=== PATIENT | male | born 1950 | race Hispanic/Latino ===

== ENCOUNTER 2017-02-18 11:55 | Inpatient (IN) | payer BC, MEDICARE ==
[2017-02-18 12:19] VITALS: BMI 33.9
[2017-02-18] MEDS ORDERED: Albuterol-Ipratrop 3 mg / 0.5 (3 ml) UD IH STA (12:20)
--- NOTE | 2017-02-18 12:28 | ED PDOC ---
Arrival/HPI - General Chief Complaint: Shortness Of Breath Time Seen by Provider: 02/18/17 12:12 Historian: Patient, [employer] (daughter translates) - History of Present Illness Time/Duration: > month Symptom Onset: Gradual Severity Level: Moderate Activities at Onset: Rest Associated Symptoms (Text): 02/18/17 12:26 Daughter translates. Patient complains of a several month history of a cough congestion and shortness of breath. He has non-small cell lung cancer localized to the right upper lobe. Had a PET CT scan approximately 2 weeks ago. is requesting a CT scan of the chest with no contrast. He will be admitted to Dr. Sandra Live. Past Medical History - Cardiac Hx Pacemaker: No - Neurological Hx Paralysis: No - Hematological/Oncological Hx Blood Transfusions: No Hx Blood Transfusion Reaction: No - Musculoskeletal/Rheumatological Hx Musculoskeletal Disorders: No - Anesthesia Hx Anesthesia Reactions: No Family/Social History - Physician Review Nursing Documentation Reviewed: Yes Family/Social History: Unknown Family HX Smoking Status: Former Smoker Hx Alcohol Use: No Hx Substance Use: No Allergies/Home Meds Allergies/Adverse Reactions: Allergies No Known Allergies Allergy (Verified 02/23/13 09:36) Home Medications: Home Meds Medication Instructions Recorded Confirmed Alprazolam 0.25 mg PO DAILY 02/23/13 02/23/13 Amlodipine Besylate 10 mg PO DAILY 02/23/13 02/23/13 Enalapril Maleate/Hydrochlor 1 tab PO DAILY 02/23/13 02/23/13 [Enalapril/Hctz 10 mg-25 mg] Escitalopram Oxalate [Lexapro] 10 mg PO DAILY 02/23/13 02/23/13 Review of Systems - Physician Review All systems were reviewed & negative as marked: Yes - Review of Systems Constitutional: Fatigue. absent: Fevers Respiratory: SOB, Cough, Sputum, Wheezing Cardiovascular: absent: Chest Pain, Palpitations, Syncope Gastrointestinal: absent: Abdominal Pain, Diarrhea, Nausea, Vomiting Neurological: absent: Headache, Dizziness Physical Exam Vital Signs Temp Pulse Resp BP Pulse Ox 02/18/17 13:33 97 H 18 138/79 97 02/18/17 12:05 98.5 F 108 H 18 141/85 97 Temperature: Afebrile Blood Pressure: Normal Pulse: Tachycardic Respiratory Rate: Normal Appearance: Positive for: Well-Appearing, Non-Toxic, Comfortable Pain Distress: None Mental Status: Positive for: other (awake alert and cooperative) - Systems Exam Head: Present: Atraumatic, Normocephalic Pupils: Present: PERRL Extroacular Muscles: Present: EOMI Conjunctiva: Present: Normal Mouth: Present: Moist Mucous Membranes Pharnyx: No: ERYTHEMA, EXUDATE, TONSILS ENLARGED Neck: Present: Normal Range of Motion Respiratory/Chest: Present: Wheezes, Decreased Breath Sounds, Rhonchi. No: Respiratory Distress, Accessory Muscle Use, Rales, Retracting, Tachypneic, Tender to Palpation Cardiovascular: Present: Regular Rate and Rhythm, Normal S1, S2, Tachycardic. No: Murmurs Abdomen: Present: Normal Bowel Sounds. No: Tenderness, Distention, Peritoneal Signs, Rebound, Guarding Upper Extremity: Present: Normal Inspection. No: Cyanosis, Edema Lower Extremity: Present: Normal Inspection. No: Edema Neurological: Present: GCS=15, CN II-XII Intact, Speech Normal, Motor Func Grossly Intact Skin: Present: Warm, Dry, Normal Color. No: Rashes Psychiatric: Present: Alert, Oriented x 3, Normal Insight, Normal Concentration Medical Decision Making ED Course and Treatment: 02/18/17 13:48 Sent for admission for treatment of non-small cell lung cancer and begin chemotherapy. - Lab Interpretations Lab Results: 02/18/17 12:45 Lab Results 02/18/17 12:45: pO2 104 H, VBG pH 7.32, VBG pCO2 56.0, VBG HCO3 28.9 H, VBG Total CO2 30.6 H, VBG O2 Sat (Calc) 98.6 H, VBG Base Excess 1.6, VBG Potassium 4.2, Sodium 138.0, Chloride 109.0 H, Glucose 93, Lactate 0.7, FiO2 21.0, Venous Blood Potassium 4.2 02/18/17 12:45: WBC 8.7, RBC 3.99, Hgb 12.2 L, Hct 37.0 L, MCV 92.7, MCH 30.6, MCHC 33.0, RDW 13.9, Plt Count 273, MPV 9.0, Gran % 79.2 H, Lymph % (Auto) 11.5 L, [place] % (Auto) 6.2 H, Eos % (Auto) 2.9, Baso % (Auto) 0.2, Gran # 6.88 H, Lymph # 1.0 L, [place] # 0.5, Eos # 0.3, Baso # 0.02 - RAD Interpretation Radiology Orders: 02/18/17 12:19 CHEST PORTABLE [RAD] Stat 02/18/17 12:24 CHEST W/O CONTRAST [CT] Stat - Medication Orders Current Medication Orders: Discontinued Medications Albuterol/Ipratropium (Duoneb 3 Mg/0.5 Mg (3 Ml) Ud) 3 ml IH ONCE STA Stop: 02/18/17 12:21 Last Admin: 02/18/17 12:32 Dose: 3 ml Disposition/Present on Arrival - Present on Arrival Any Indicators Present on Arrival: No History of DVT/PE: No History of Uncontrolled Diabetes: No Urinary Catheter: No History of Decub. Ulcer: No - Disposition Have Diagnosis and Disposition been Completed?: Yes Diagnosis: Lung cancer, Dyspnea Disposition: HOSPITALIZED Disposition Time: 13:19 Patient Plan: Admission Patient Problems: Current Active Problems Problem Status Onset Dyspnea Acute Lung cancer Acute Condition: FAIR
--- NOTE | 2017-02-18 12:46 | RAD ---
HISTORY: sob COMPARISON: 05/12/2013 FINDINGS: LUNGS: There is opacification and volume loss of the right lung. This may be due to endobronchial obstruction such is a mucous plug. The previous study shows surgical clips this area. The findings may be due to recurrent tumor. PLEURA: There is a small right pleural effusion CARDIOVASCULAR: Normal. OSSEOUS STRUCTURES: No significant abnormalities. VISUALIZED UPPER ABDOMEN: Normal. OTHER FINDINGS: None. IMPRESSION: Opacification and volume loss of the right lung suspicious for endobronchial obstruction
[2017-02-18 12:53] LABS: ADD MANUAL DIFF? NO
[2017-02-18 12:55] LABS: VENOUS BLOOD GAS BASE EXCESS 1.6 mmol/L (0.0-2.0); VENOUS BLOOD PH 7.32 (7.32-7.43)
[2017-02-18 12:56] LABS: BASO # 0.02 K/mm3 (0.0-2.0); BASO % 0.2 % (0.0-3.0); EOS # 0.3 (0.0-0.7); EOS % 2.9 % (1.5-5.0); GRAN # 6.88 (1.4-6.5); GRAN % 79.2 % (50.0-68.0); LYMPH % 11.5 % (22.0-35.0); MEAN CELL VOLUME 92.7 fL (80.0-105.0); MEAN CORPUSCULAR HEMOGLOBIN 30.6 pg (25.0-35.0); MONO # 0.5 (0.1-0.6); MONO % 6.2 % (1.0-6.0); PLATELET COUNT 273 10^3/uL (120.0-450.0); RED CELL DISTRIBUTION WIDTH 13.9 % (11.5-14.5); WHITE BLOOD COUNT 8.7 10^3/ul (4.5-11.0)
[2017-02-18 13:49] LABS: INR 1.18 (0.93-1.08); PARTIAL THROMBOPLASTIN TIME 27.6 Seconds (23.7-30.8)
--- NOTE | 2017-02-18 13:49 | CT ---
PROCEDURE: CT Chest without contrast HISTORY: as per Dr Ram COMPARISON: None. TECHNIQUE: Contiguous axial images were obtained through the chest without intravenous contrast enhancement. Sagittal and coronal reconstructions were performed. Radiation dose (DLP): 670.23 mGy-cm. This CT exam was performed using one or more of the following dose reduction techniques: Automated exposure control, adjustment of the mA and/or kV according to patient size, and/or use of iterative reconstruction technique. FINDINGS: LUNGS: Status post partial right pneumonectomy. Multiple surgical clips inferior to the right hilum. Right-sided volume loss with shift of the heart mediastinum towards the right side. There is extensive consolidation likely in the superior segment of the right lower lobe, with associated air bronchograms. There is soft tissue density seen along the right medial pleural surface contiguous with this consolidation or mass. There is extension into the right upper lobe from this medial pleural soft tissue. There is narrowing of the right lower lobe bronchus without evidence of an endobronchial mass. This may be due to extrinsic compression by neoplasm. Evaluation is somewhat limited in the absence of intravenous contrast. MEDIASTINUM: Unremarkable thoracic aorta. No aneurysm. Mild cardiomegaly. Moderate pericardial effusion. Main pulmonary artery unremarkable. No vascular congestion. No mediastinal lymphadenopathy. Contiguous extension of soft tissue density in the right lung to the hilum. Left hilum is unremarkable. There is a right central venous infusion port. PLEURA: Small right pleural effusion. No left pleural effusion. No pneumothorax. BONES: Status post right thoracotomy. Healing fractures right 5th through 8th ribs posteriorly. Healing fracture right 6th rib anteriorly. No lytic or blastic osseous lesions identified. UPPER ABDOMEN: Grossly unremarkable. OTHER FINDINGS: None. IMPRESSION: Status post right thoracotomy. Soft tissue density/consolidation in the right lower lobe extending to the right upper lobe with soft tissue density along the right medial pleural surface. Air bronchograms within a large portion of this soft tissue density reflect possible pneumonia or atelectasis. No endobronchial mass. Narrowing of right lower lobe bronchus may reflect extrinsic compression by neoplasm. Small right pleural effusion. Moderate pericardial effusion. Multiple healing right rib fractures as above.
[2017-02-18 13:58] LABS: ALKALINE PHOSPHATASE 85 U/L (38-133); ALT/SGPT 29 U/L (7-56); AST/SGOT 29 U/L (15-59); BILIRUBIN,TOTAL 0.7 mg/dL (0.2-1.3); BLOOD UREA NITROGEN 18 mg/dL (7-21); CALCIUM 8.8 mg/dL (8.4-10.5); CARBON DIOXIDE 29 mmol/L (21-33); CHLORIDE 102 mmol/L (98-107); GFR AFRICAN-AMERICAN > 60; GLUCOSE,RANDOM 91 mg/dL (70-110); POTASSIUM 4.3 mmol/L (3.6-5.0); SODIUM 140 mmol/L (132-148)
[2017-02-18 14:10] LABS: TROPONIN I 0.02 ng/mL
[2017-02-18] MEDS ORDERED: MethylPREDNISolone 40 mg Vial IVP STA (15:30)
[2017-02-18 16:47] VITALS: RESP 20
[2017-02-18] MEDS ORDERED: Pneumococcal 23-Valent Vaccine IM ONE (16:54)
[2017-02-18] MEDS: MethylPREDNISolone 40 mg Vial IVP SCH ×2 (18:49→23:06)
[2017-02-18] MEDS ORDERED: Albuterol-Ipratrop 3 mg / 0.5 (3 ml) UD IH SCH (20:04)
[2017-02-18] MEDS ORDERED: Albuterol-Ipratrop 3 mg / 0.5 (3 ml) UD IH PRN (20:31)
[2017-02-18] MEDS ORDERED: levoFLOXacin 750 mg in D5W 150 ML BAG IVPB SCH (22:00)
--- NOTE | 2017-02-18 22:35 | CARD ---
APPROVED REPORT EKG Measurement Heart [id number] <Conclusion> Sinus tachycardia Otherwise normal ECG
[2017-02-19] MEDS: Albuterol-Ipratrop 3 mg / 0.5 (3 ml) UD IH SCH ×4 (02:07→19:25)
[2017-02-19 02:49] LABS: URINE BILIRUBIN NEGATIVE (NEGATIVE); URINE BLOOD TRACE-INTACT (NEGATIVE); URINE GLUCOSE (UA) NEGATIVE (NEGATIVE); URINE KETONE NEGATIVE (NEGATIVE); URINE LEUKOCYTE ESTERASE NEGATIVE Leu/uL (NEGATIVE); URINE PROTEIN NEGATIVE mg/dL (<30 mg/dL); URINE UROBILINOGEN 0.2 E.U./dL (<1 E.U./dL)
[2017-02-19 03:00] LABS: URINE APPEARANCE CLEAR (CLEAR); URINE COLOR STRAW (YELLOW)
[2017-02-19 03:09] LABS: URINE WBC 0 - 2 /hpf (0-6)
[2017-02-19] MEDS: MethylPREDNISolone 40 mg Vial IVP SCH ×4 (05:10→23:07)
[2017-02-19 06:34] LABS: ADD MANUAL DIFF? NO
[2017-02-19 06:57] LABS: GRAN # 12.44 (1.4-6.5); GRAN % 95.5 % (50.0-68.0); HEMATOCRIT 38.4 % (42.0-52.0); LYMPH # 0.5 (1.2-3.4); LYMPH % 3.8 % (22.0-35.0); MEAN CELL VOLUME 92.1 fL (80.0-105.0); MEAN CORPUSCULAR HEMOGLOBIN 30.7 pg (25.0-35.0); MEAN CORPUSCULAR HGB CONC 33.3 g/dl (31.0-37.0); MEAN PLATELET VOLUME 9.3 fl (7.0-11.0); MONO # 0.1 (0.1-0.6); MONO % 0.7 % (1.0-6.0); PLATELET COUNT 317 10^3/uL (120.0-450.0); RED CELL DISTRIBUTION WIDTH 13.7 % (11.5-14.5)
[2017-02-19 07:09] LABS: ALKALINE PHOSPHATASE 90 U/L (38-133); ALT/SGPT 33 U/L (7-56); AST/SGOT 33 U/L (15-59); BILIRUBIN,TOTAL 0.7 mg/dL (0.2-1.3); BLOOD UREA NITROGEN 19 mg/dL (7-21); CALCIUM 9.3 mg/dL (8.4-10.5); CARBON DIOXIDE 27 mmol/L (21-33); CHLORIDE 100 mmol/L (98-107); GFR AFRICAN-AMERICAN > 60; GLUCOSE,RANDOM 153 mg/dL (70-110); POTASSIUM 4.4 mmol/L (3.6-5.0); SODIUM 138 mmol/L (132-148); TOTAL PROTEIN 7.8 g/dL (5.8-8.3)
[2017-02-19] MEDS ORDERED: Budesonide 0.5 mg/2 ml Inhal Susp UD IH SCH (08:00)
--- NOTE | 2017-02-19 08:09 | HP ---
HISTORY OF PRESENT ILLNESS: This is a 66-year-old white male with a diagnosis of stage IV non-small- cell carcinoma of the lung on the right side with progressive right upper lobe atelectasis, right low er lobe atelectasis with postobstructive changes on the PET/CT scan without any evidence of disease p rogression either in the contralateral lung, liver, adrenal, or bone. He is admitted with progressiv e shortness of breath, spasmodic coughing to the extent that he almost feels like passing out, and he has fallen at home a few times after he has fits of cough and recently scant hemoptysis, which promp severo us to ask him to come to the Emergency Room for admission for further management. The patient re cently had a PET/CT scan done, which showed the following. The PET/CT shows increase in size and met abolic activity of the right perihilar soft tissue, consistent with progression of disease with assoc iated greater bronchial narrowing occlusion, increase in the consolidation atelectasis of the r ight lung with increase in size of the pericardial effusion which was now small to moderate size. Th ere is a healing right 7th rib fracture compared to the CT of 10/25/2016. Within the chest itself th ere is increase in the right perihilar soft tissue with new occlusion of the right upper lobe bronchu s, a significant narrowing of the bronchus intermedius, which has also progressed since the prior pablo dy. Measurement of the soft tissue is difficult due to its ill-defined nature and adjacent atelectas is. The perihilar soft tissue has greater metabolic activity compared to the prior study. For examp le, the most superior component adjacent to the right upper lobe as the maximum SUV of 12.9, previous ly was 8.7. Mid portion, on image, 91 with an SUV of 13.2, previous maximum SUV was 9.1. There is a n increase in the size of the infrahilar component which had an SUV of max of 16. , previous max was 8.1 with greater consolidation with air bronchograms in the right mid lung zone, which may be re lated to atelectasis and/or postradiation changes. New hypermetabolic subcarinal node with an SUV of .4 is also noted on the PET/CT. Also, the right lower paratracheal node with an SUV of 2.2, p reviously was 4.8. There is no evidence of mets to the adrenal glands or the liver on the PET/CT. REVIEW OF SYSTEMS: The patient has been having increasing coughing, sometimes to the point that he c oughs in fits up to 15 minutes until he feels that he is going to almost pass out. He has fallen shravan n once or twice after excruciating bout of coughing. The patient has hit his head as a result of dejah t. He has now stopped working and is retired at home, very depressed because of all the circumstance s with him. Denies any history of fevers or malaise. Complains of pain in the post-thoracotomy site on the right side posteriorly. Denies any history of nausea, vomiting, or diarrhea. No history of dysuria or hematuria. No gait disturbance or weakness of any extremities. No skin lesions or skin u lcerations. No history of arthritis, but complains of pain in the posterior rib region related to th e post-thoracotomy cutting. PAST MEDICAL HISTORY: Significant for carcinoma of the lung on the right side. Right lung has a par tial lobectomy, following which the patient was given systemic chemotherapy. Did well with the chemo therapy. Did well for almost 4 years. Had recurrence of his disease documented last year, for which he had radiation initially, following which he was started on Keytruda. The patient got 1 or 2 dose s of Keytruda and then stopped it. Did not come back to the office early part of this year whe n his daughter was very worried about him as he was getting increasingly coughing, and she had insist ed that he go for a CAT scan of the head and a PET/CT. CAT scan of the head, unfortunately, was not done, but the PET CT did not show any significant disease in the contralateral lung, adrenal, liver, or bone, and as the disease was only confined to the right upper lobe of the lung with progression of disease as evidenced on the PET/CT portion of it. We decided to recommend patient back on systemic treatments with either Opdivo or Keytruda, plus or minus a drug like Alimta adding carbo, Alimta to t he regimen. : Include: Ecotrin, vitamin D, atorvastatin, prednisone, oxycodone, and codeine. MEDICATIONS: Reviewed. He is on Xanax 0.25 mg daily. He is on amlodipine 10 mg daily. He is on en alapril/hydrochlorothiazide, mixture of 10 mg/25 one daily. He is on Lexapro 10 mg p.o. daily. He h as been taking codeine phosphate 30 mg q. coughing despite that he has been coughing quite a bi t in spasms. He has had occasional hemoptysis. PHYSICAL EXAMINATION: VITAL SIGNS: Stable. T-max is 98.4, pulse is 108, respirations 18, blood pressure is 141/85, pulse ox is 97% on room air. HEENT: Head is normocephalic, atraumatic. Conjunctivae pale. Sclerae are anicteric. The patient h as intermittent bouts of coughing that has been disturbing him a lot. Examination of the oropharynx reveals no oropharyngeal lesions. Pupils are equally reactive to light and accommodation. Examinati on of the mouth reveals no significant findings. Moist, pink mucous membranes are noted. NECK: Supple. There is no adenopathy. No jugular venous distention noted. CHEST: Lungs reveals wheezes and decreased breath sounds and rhonchi. The patient is in no respirat ory distress. The patient has had episodes of coughing, which turned to feel dizzy and sometime s almost making him feel like he was going to pass out. There are decreased breath sounds on the rig ht side posteriorly with egophony at the right lung base posteriorly. CARDIOVASCULAR: Reveals S1 and S2 to be normal. No gallop or murmur is heard. ABDOMEN: Soft, nontender. Bowel sounds are present. No rebound, rigidity, or guarding is noted. EXTREMITIES: Upper extremities reveal normal to inspection. No cyanosis or edema. Examination of l ower extremities reveals no cyanosis, clubbing, or edema. NEUROLOGIC: The patient is depressed. Otherwise, interactive with me through interpretation from hi s daughter, who is accompanying him. No focal deficits are noted. There is no speech impediment. SKIN: Turgor is normal. No skin lesions are noted. PSYCHIATRIC: The patient is awake, alert, and oriented to time, place and person. LABORATORY DATA: From today was reviewed. White count is 8.7, hemoglobin 12.2, hematocrit 37, platelet count 273,000. VBG reveals a base excess of 1.6. Sodium is 138, chloride 109, and glucose 98. Lactate 0.7. FIO2 21. Venous blood potassium is 4.2. White count is 8.7, hemoglobin of 12.1, hematocrit 37. The pat ient had a chest x-ray done followed by a CAT scan. CAT scan of the chest reveals status post right thoracotomy with soft tissue density and consolidation of the right lower lobe extending into the ri ght upper lobe with soft tissue density along the right medial pleural surface bronchograms ___ __ within the large portion of the soft tissue density reflect possibly pneumonia or atelectasis. No endobronchial mass lesion is seen. Narrowing of the right lower bronchus may be reflective intrinsi c compression by neoplasm, a small right pleural effusion, moderate pericardial effusion with multipl e healing right rib fractures noted on the CAT scan. ASSESSMENT NOTES AND PLAN: The patient has progressive stage IV [id number] carcinoma of the lung , adenocarcinoma. We will plan on having the patient evaluated by pulmonary, started on bronchodilat ors of DuoNeb every 6 hours [id number] and every 2 hours p.r.n. as needed. He has been started on IV steroids mg IV push 40 IV q. 6 hours. He has been also started empirically on ant ibiotics with Levaquin 750 mg once daily. Kidney functions are okay at least given one dose of the Levaquin. I will continue all of his other medications from home, including codeine phosp hate. The patient be seen by pulmonary to assess him for possible bronchoscopy. I spoke to Dr. Katja francois also about the possibility of an endobronchial stent. He has to look at the patient and look at the scans before he makes any decisions. Routine post exam instructions have been given to the patie nt. I am going to start the patient on B12, folic acid tonight in preparation for possible chemother apy tomorrow. Follow bedside echocardiogram as well, and we will plan on trying to get cardiology in put as well. The patient is admitted to the floor to undergo intensive investigation followed by paul [place]. . Odalis Hayward MD Elaine Ram MD cc: [id number] TT: 02/19/2017 01:38:19 tn
[2017-02-19] MEDS: Acetylcysteine 20% Inhal Soln (4ml) IH SCH ×3 (08:25→19:25)
[2017-02-19] MEDS ORDERED: Vancomycin 1gm in NS 250ml 1 GM/250 ML BAG IVPB STA (08:36)
--- NOTE | 2017-02-19 09:38 | CON ---
DATE: 02/19/2017 History is obtained via extensive discussion with Dr. Ram. I also discussed the case at length with Dr. Gann (my partner) - who follows the patient as an outpatient. The patient is a 66-year-old male with past medical history significant for chronic obstructive pulmonary disease, positive extensive smoking history - still smokes, advanced nonsmall cell lung cancer ( with recurrence), status post partial right lung resection, who presents to [facility] with a several month history of cough and congestion. The patient is not short of breath at rest. There is a history of some mild occasional dyspnea on exertion. There is no significant sputum production. There is no history of chest pain, coughing up of blood or chest pain - made worse with deep respirations. There is no history of temperatures, chills or infectious exposure. There is no history of night sweats, weight loss or appetite change prior to the above events. No history of leg or calf pains. No history of syncope or diaphoresis. No history of recent travel or trauma. REVIEW OF SYSTEMS: No history of nausea, vomiting or diarrhea. No acute urinary symptoms. No new neurological or musculoskeletal complaints. Rest of the review of systems is negative. ALLERGIES: No known allergies. SOCIAL HISTORY: Positive for extensive tobacco usage - still smokes, no alcohol. FAMILY HISTORY: No inheritable diseases. HOME MEDICATIONS: Include Cardizem, Norvasc, Lexapro, enalapril, codeine and Xanax. PHYSICAL EXAMINATION: GENERAL: The patient is not short of breath at rest. He is not using accessory muscles for breathing. VITAL SIGNS: Temperature is 98.2, pulse 100, respirations 18, blood pressure 145/93. Oxygen saturation on room air is 96%. HEENT: Normocephalic, atraumatic. NECK: No JVD. CARDIOVASCULAR: Positive S1, S2. No S3. LUNGS: Bronchial breath sounds-- right upper lobe. Scattered bilateral rhonchi and wheezing are also appreciated. EXTREMITIES: No clubbing, cyanosis, or edema. Calves are nontender to palpation. GASTROINTESTINAL: Abdomen is soft, nontender, nondistended. Bowel sounds are positive. SKIN: No acute rash. NEUROLOGIC: Limited at the present time. PERTINENT LABORATORY DATA: CAT scan of the chest was done and reviewed. The patient is status post partial right lung resection. There is a large soft tissue mass that extends from the right upper lobe down to probably the superior segment of the right lower lobe. There is also infiltrate versus atelectasis - with air bronchograms - in the superior segment of the right lower lobe. There is no definite endobronchial mass. Narrowing of the right lower lobe bronchus probably reflects extrinsic compression by the neoplasm. There is a small right pleural effusion. CBC: White count 8.7, hemoglobin 12.2 , hematocrit 37.0, platelets of 273. Complete metabolic profile is completely within normal limits. IMPRESSION: 1. Persistent bronchospasm. 2. Chronic obstructive pulmonary disease. 3. Advanced,recurrent lung cancer. 4. Mild anemia. PLAN: Again, I did discuss the case with Dr. Ram at length. I also discussed the case with Dr. Rashard Gann (my partner). Apparently, the patient has been coughing for approximately 1 year. However, as above, the cough has now become worse over the past several months. I did review the CAT scan of the chest - noted above. The patient is status post partial right ling resection. There is a large soft tissue mass in the right upper lobe which extends down approximately to the superior segment of the right lower lobe. There is also infiltrate versus atelectasis - with air bronchograms-- in the superior segment of the right lower lobe. There is no endobronchial mass noted. As above, there is narrowing of the right lower lobe bronchus which probably reflects extrinsic compression by the neoplasm. There is also a small right pleural effusion. On physical exam, the patient is in moderate bronchospasm. I will continue with the current nebulizer treatments and intravenous steroids for now. I will also add Mucomyst and chest percussion therapy - and will discuss these orders with the respiratory therapist. The patient has been started on antibiotic therapy. Procalcitonin has been ordered. Infectious disease evaluation has also been ordered. The patient does state to feeling better this morning - compared to the past few weeks. However, his overall status/prognosis does remain very guarded at best - given the recurrence of his lung cancer. I will discuss the above with Dr. Ram again this morning. I will also try to meet with the daughter this morning. Additional pulmonary intervention will be based on the clinical status of the patient. Thank you very much for this pulmonary consultation. Kenny Vaca MD cc: [id number] TT: 02/19/2017 09:37:21 Confirmation # [id number] Dictation # [id number] [id number]
[2017-02-19] MEDS: Cefepime 1gm in NS 100ml 1 GM/100 ML BAG IVPB SCH ×3 (09:53→21:51)
--- NOTE | 2017-02-19 19:08 | CON ---
DATE: 02/19/2017 The patient is in room 365, bed 2. REASON FOR CONSULTATION: Sinus tachycardia, pericardial effusion. HISTORY OF PRESENT ILLNESS: The patient is a 66-year-old male with past medical history significant for advanced nonsmall cell lung cancer with recurrence of the tumor, COPD, hypertension, admitted wit h a history that he has a cough and shortness of breath associated with the cough. This cough has be en there for a long time, but it got worse and the patient today came to the hospital and CAT scan sh owed moderate pericardial effusion, so cardiology consult has been requested to evaluate pericardial effusion. The patient denies any chest pain or palpitation. The patient, in the past, had a partial resection of the right upper lobe due to tumor and now it has shown recently the recurrence. The pa brian also had received radiation therapy and chemotherapy. The patient lying flat in bed without an y chest pain or shortness of breath or palpitation at present. PAST MEDICAL HISTORY: As mentioned, the patient positive for lung tumor resection and also part of t he lung for malignancy, chemotherapy and radiation therapy. The patient also had a hernia surgery. PERSONAL HISTORY: The patient used to smoke heavy and still smokes 2 cigarettes a day. Denies drink ing. MEDICATIONS: At home, the patient was on enalapril, Lexapro, codeine, Xanax, Norvasc, Cardizem. REVIEW OF SYSTEMS: All the systems were reviewed, positive mentioned in the history, others were neg ative. PHYSICAL EXAMINATION: VITAL SIGNS: Blood pressure 156/98, respirations 20, pulse 120, temperature 98.3. HEENT: Head is normocephalic. Eyes: Pupils normal. Conjunctivae slightly pale. NECK: JVP low. Carotid equal. THORAX: AP diameter normal. LUNGS: The patient has wheezing sounds. CARDIOVASCULAR: S1, S2. The patient has tachycardia. ABDOMEN: Soft, nontender, no organomegaly. EXTREMITIES: No clubbing, no cyanosis. LABORATORY DATA: WBC 13.0, hemoglobin 12.8, hematocrit 38.4, platelets 317. Sodium 138, potassium 4 .4, BUN 19, creatinine 0.8, random glucose . Calcium 9.3. AST, ALT normal. Total protein and albumin normal. Chest x-ray: Opacification and volume loss of the right lung suspicious for endobro nchial obstruction. EKG showed sinus tachycardia, [address] chest showed status post right thoracotomy, soft tissue density and consolidation right lower lobe extending to the right upper lob e, narrowing of the right lower lobe bronchus, may show extrinsic effect of compression by a neoplasm , small right pleural effusion, moderate pericardial effusion. 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 PLAN: We will order an echocardiogram to evaluate the pericardial effusion. We will also add atenol ol 25 mg daily for blood pressure, as well as sinus tachycardia, and also will restart amlodipine 10 mg daily, which the patient was getting before. The patient had been already started on methylpredni sone 40 mg q. 6 hourly IV, nebulizer therapy. For pericardial effusion, also the patient will be on IV steroid, that will also have the anti-inflammatory effect on the pericardium with steroids. We wi ll reevaluate the patient after echocardiogram. The patient is also being followed by pulmonary, Dr. Vaca. I discussed the patient's condition with his daughter. We will continue to follow with neel panda. Chante Piper MD cc: [phone] TT: 02/19/2017 19:07:31 Confirmation # [id number] Dictation # [id number] viji
--- NOTE | 2017-02-19 19:40 | CARD ---
APPROVED REPORT EXAM: Two-dimensional and M-mode echocardiogram with Doppler and color Doppler. INDICATION PERICARDIAL EFFUSION 2D DIMENSIONS Left Atrium (2D)3.5 (1.6-4.0cm) M-Mode DIMENSIONS Aortic Root3.30 (2.2-3.7cm)Aortic Cusp Exc.1.70 (1.5-2.0cm) Aortic Valve AoV Peak Vprocutf255.0cm/sAoV VTI30.3cmAO Peak GR.12mmHg LVOT Peak Inhukwas749.0cm/sLVOT VTI23.00cmAO Mean GR.8mmHg Mitral Valve E/A ratio0.0 TDI E/Lateral E'0.0E/Medial E'0.0 Pulmonary Valve PV Peak Lxydlvak68.9cm/sPV Peak Grad.3mmHg Tricuspid Valve TR Peak Lyeuifac612ot/sRAP [id number] Peak Gr.19mmHg AKUT66erHw LEFT VENTRICLE The left ventricle is normal size. There is borderline to mild concentric left ventricular hypertrophy. The left ventricular function is normal.EF-55% There is normal LV segmental wall motion. Transmitral Doppler flow pattern is Grade III-reversible restrictive diastolic dysfunction. No left ventricle thrombus noted on this study. There is no ventricular septal defect visualized. There is no left ventricular aneurysm. There is no mass noted in the left ventricle. RIGHT VENTRICLE The right ventricle is normal size. There is normal right ventricular wall thickness. The right ventricular systolic function is normal. ATRIA The left atrium size is normal. The right atrium size is normal. The interatrial septum is intact with no evidence for an atrial septal defect. AORTIC VALVE The aortic valve is thickened but opens well. No aortic regurgitation is present. There is no aortic valvular stenosis. There is no aortic valvular vegetation. MITRAL VALVE The mitral valve is thickened but opens well. Mitral regurgitation is trace to mild. There is no mitral valve stenosis. There is no evidence of mitral valve prolapse. TRICUSPID VALVE The tricuspid valve leaflets are thickened , but open well. There is trace tricuspid regurgitation.RVSp-29 mmof Hg. There is no tricuspid valve stenosis. There is no tricuspid valve prolapse or vegetation. PULMONIC VALVE The pulmonic valve is not well visualized. GREAT VESSELS The aortic root is normal in size. The ascending aorta is normal in size. The pulmonary artery is normal. The IVC is normal in size and collapses >50% with inspiration. PERICARDIAL EFFUSION There is no pleural effusion. There is a small circumferential pericardial effusion,but no sign of tamponade. <Conclusion> Normal chamber size,EF-55%. Trace to MildMR. TraceTR-29 mmofHg There is a small circumferential pericardial effusion,but no sign of tamponade.
--- NOTE | 2017-02-19 22:37 | CP.PCM.CON ---
History of Present Illness - History of Present Illness History of Present Illness: 66 year old female with PMH of non-small cell lung cancer S/P right pneumonectomy, HTN, obesity with BMI 34 was brought in because of cough as well as shortness of breath for the past few days. He denies fever or chills, no nausea or vomiting, no chest pain, no abdominal pain, no diarrhea, no dysuria, no headache or dizziness, no dysphagia, no sore throat, no rhinorrhea. In the ED , CT chest was done which shows consolidation and air bronchograms in the right lower lobe. Infectious Diseases consult is requested to further evaluate and manage. Review of Systems - Review of Systems All systems: reviewed and no additional remarkable complaints except (as per HPI ) Past Patient History - Past Social History Smoking Status: Former Smoker - CARDIAC Hx Hypertension: Yes Hx Pacemaker: No - PULMONARY Hx Respiratory Disorders: Yes (lung ca dx 2011) - NEUROLOGICAL Hx Paralysis: No - HEENT Hx HEENT Problems: Yes (eyeglasses) - RENAL Hx Chronic Kidney Disease: No - ENDOCRINE/METABOLIC Hx Endocrine Disorders: No - HEMATOLOGICAL/ONCOLOGICAL Hx Cancer: Yes (right sided lung) Hx Chemotherapy: Yes (2012) Other/Comment: non small lung ca r upper lobe - INTEGUMENTARY Hx Dermatological Problems: No - MUSCULOSKELETAL/RHEUMATOLOGICAL Hx Falls: No - GASTROINTESTINAL Hx Gastrointestinal Disorders: No - GENITOURINARY/GYNECOLOGICAL Hx Genitourinary Disorders: No - PSYCHIATRIC Hx Substance Use: No - SURGICAL HISTORY Hx Surgeries: Yes Other/Comment: 08/2012 tumor removal from lung. 2000 hernia - ANESTHESIA Hx Anesthesia Reactions: No Meds Allergies/Adverse Reactions: Allergies Allergy/AdvReac Type Severity Reaction Status Date / Time No Known Allergies Allergy Verified 02/23/13 09:36 - Medications Medications: Current Medications Albuterol/Ipratropium (Duoneb 3 Mg/0.5 Mg (3 Ml) Ud) 3 ml IH [id number] [facility] Albuterol/Ipratropium (Duoneb 3 Mg/0.5 Mg (3 Ml) Ud) 3 ml IH Q2H PRN PRN Reason: Shortness of Breath Codeine Sulfate (Codeine) 30 mg PO Q4 PRN PRN Reason: Cough Last Admin: 02/18/17 20:11 Dose: 30 mg Folic Acid (Folic Acid) 1 mg PO BID [facility] Levofloxacin/Dextrose (Levaquin 750mg) 750 mg IVPB 2200 [facility] Last Admin: 02/18/17 21:18 Dose: 750 mg Methylprednisolone (Solu-Medrol) 40 mg IVP Q6 [facility] Last Admin: 02/18/17 23:06 Dose: 40 mg Pantoprazole Sodium (Protonix Inj) 40 mg IVP DAILY [facility] Physical Exam - Constitutional Appears: Non-toxic, No Acute Distress - Head Exam Head Exam: NORMAL INSPECTION - Neck Exam Neck exam: Negative for: Lymphadenopathy, Meningismus - Respiratory Exam Respiratory Exam: Decreased Breath Sounds Additional comments: right anterior chest wall port site clean and non-tender - Cardiovascular Exam Cardiovascular Exam: +S1, +S2 Results - Vital Signs Recent Vital Signs: Last Vital Signs Temp 98.2 F 02/18/17 16:45 Pulse 100 H 02/18/17 20:19 Resp 20 02/18/17 16:45 BP 145/93 H 02/18/17 16:45 Pulse Ox 98 02/18/17 16:00 - Labs Result Diagrams: 02/19/17 05:30 02/19/17 05:30 Labs: Laboratory Results - last 24 hr 02/18/17 02/18/17 13:30 13:40 PT 12.7 H INR 1.18 H APTT 27.6 Sodium 140 Potassium 4.3 Chloride 102 Carbon Dioxide 29 Anion Gap 13 BUN 18 Creatinine 0.9 Est GFR ( Amer) > 60 Est GFR (Non-Af Amer) > 60 Random Glucose 91 Calcium 8.8 Total Bilirubin 0.7 AST 29 ALT 29 Alkaline Phosphatase 85 Lactate Dehydrogenase 359 Total Creatine Kinase 61 Troponin I 0.02 NT-Pro-B Natriuret Pep 429 Total Protein 7.0 Albumin 3.5 Globulin 3.6 Albumin/Globulin Ratio 1.0 L Assessment & Plan - Assessment and Plan (Free Text) Plan: Assessment Sepsis probably secondary to right sided healthcare-associated pneumonia non-small cell lung cancer S/P right pneumonectomy HTN obesity with BMI 34 Plan Started patient on Doxycycline and Cefepime pending blood and sputum cx, PCT Will monitor clinical response
--- NOTE | 2017-02-19 22:44 | PN ---
DATE: 02/19/2017 This is the patient's hospital visit on the medical floor. For Dr. Ram. SUBJECTIVE: The patient is a 66-year-old male, speaking [place] with broken Upper Sorbian with his daugh ter at the bedside, admitted via the Emergency Room for increasing shortness of breath with several m onths of worsening symptoms. He is known to have nonsmall cell CA of the lung with the patient now b eing treated with IV antibiotics for eventual chemotherapy as per Dr. Ram's recommendations. He is now resting comfortably in no acute distress, reporting that his breathing is better. PHYSICAL EXAMINATION: VITAL SIGNS: Temperature 98.6, pulse 105, respirations 20, blood pressure 127/81, pulse ox 96%. HEENT: Unremarkable. NECK: Supple. HEART: Tachy rate, regular rhythm. LUNGS: Scattered rhonchi. ABDOMEN: Obese, soft, and nontender. EXTREMITIES: No edema. SKIN: Warm, dry and clear. NEUROLOGIC: Awake and alert. LABORATORY DATA: The patient's labs were done, white blood cell count , hemoglobin of 12.8, hem atocrit 38.4, platelet count 317,000. A chem metabolic panel showing a nonfasting glucose 153. Proc alcitonin 0.05. Otherwise, normal chem panel. The patient's CT scan of the chest was done yesterday. It was read as status post right thoracotomy, soft tissue density consolidation in the right lower lobe extending to the right upper lobe with sof t tissue density along the right medial pleural space, air bronchograms reflect possible pneumonia or atelectasis, no endobronchial masses, narrowing of the right lower lobe bronchus may reflect extrins ic compression by neoplasm, small right pleural effusion, moderate pericardial effusion, multiple hea led right rib fractures. An echocardiogram was done earlier today. The echocardiogram was read as ejection fraction of 55%, m ild MR, no sign of tamponade with a small circumferential pericardial effusion. ASSESSMENT: Stage IV nonsmall cell cancer of the lung, adenocarcinoma with hypertension, depression, pleural effusion, pneumonia, chronic obstructive pulmonary disease. PLAN: After conversation with Dr. Ram, we will continue present medical regimen with treatment w ith Keytruda and Alimta for chemotherapy as indicated with antibiotics to continue as per consultants ' recommendations. We will monitor clinically and with labs. This was all explained to the patient in [place] by his daughter. Prognosis for this patient is guarded. Tod Umaña MD cc: [phone] TT: 02/19/2017 22:43:44 Confirmation # [id number] Dictation # [id number] mn
--- NOTE | 2017-02-19 23:38 | CP.PCM.PN ---
Subjective - Date & Time of Evaluation Date of Evaluation: 02/19/17 Time of Evaluation: 23:38 - Subjective Subjective: Patient was seen at bedside for complaint of head ache. He speaks [place]ankan.Nurse Kim spoke to him through an web application tester earlier. He states that head ache is frontal,strong. Denies nausea, vomiting, dizziness, paraesthesia. Has no other complaints. Medical record was reviewed. 66 year old Alona Hargrove with history of stage iV non small cell ca of lung. Objective - Vital Signs/Intake and Output Vital Signs (last 24 hours): Temp Pulse Resp BP Pulse Ox 98.6 F 130 H 20 127/81 96 02/19/17 16:00 02/19/17 16:00 02/19/17 16:00 02/19/17 16:00 02/19/17 16:00 Intake and Output: 02/19/17 02/20/17 18:59 06:59 Intake Total 840 Balance 840 - Medications Medications: Current Medications Acetylcysteine (Acetylcysteine 20%) 4 ml IH [id number] [facility] Last Admin: 02/19/17 19:25 Dose: 4 ml Albuterol/Ipratropium (Duoneb 3 Mg/0.5 Mg (3 Ml) Ud) 3 ml IH [id number] [facility] Last Admin: 02/19/17 19:25 Dose: 3 ml Albuterol/Ipratropium (Duoneb 3 Mg/0.5 Mg (3 Ml) Ud) 3 ml IH Q2H PRN PRN Reason: Shortness of Breath Alprazolam (Xanax) 0.25 mg PO BID [facility] PRN Reason: Protocol Stop: 02/26/17 10:16 Last Admin: 02/19/17 17:59 Dose: 0.25 mg Amlodipine Besylate (Norvasc) 10 mg PO DAILY [facility] Last Admin: 02/19/17 13:38 Dose: 10 mg Atenolol (Tenormin) 25 mg PO DAILY [facility] Budesonide (Pulmicort Respules) 0.5 mg IH [id number] [facility] Last Admin: 02/19/17 19:25 Dose: 0.5 mg Codeine Sulfate (Codeine) 30 mg PO Q4 PRN PRN Reason: Cough Last Admin: 02/19/17 17:59 Dose: 30 mg Folic Acid (Folic Acid) 1 mg PO BID [facility] Last Admin: 02/19/17 17:59 Dose: 1 mg Gabapentin (Neurontin) 600 mg PO DAILY [facility] PRN Reason: Protocol Doxycycline Hyclate 100 mg/ (Sodium Chloride) 100 mls @ 100 mls/hr IVPB Q12 [facility] PRN Reason: Protocol Last Admin: 02/19/17 23:08 Dose: 100 mls/hr Cefepime HCl (Maxipime 1gm) 1 gm in 100 mls @ 100 mls/hr IVPB Q8 [facility] PRN Reason: Protocol Last Admin: 02/19/17 21:51 Dose: 100 mls/hr Methylprednisolone (Solu-Medrol) 40 mg IVP Q6 [facility] Last Admin: 02/19/17 23:07 Dose: 40 mg Pantoprazole Sodium (Protonix Inj) 40 mg IVP DAILY [facility] Last Admin: 02/19/17 09:48 Dose: 40 mg Sertraline HCl (Zoloft) 25 mg PO DAILY [facility] - Labs Labs: 02/19/17 05:30 02/19/17 05:30 PT 12.7 Seconds (9.9-11.8) H 02/18/17 13:30 INR 1.18 (0.93-1.08) H 02/18/17 13:30 APTT 27.6 Seconds (23.7-30.8) 02/18/17 13:30 - Constitutional Appears: Well, No Acute Distress - Head Exam Head Exam: ATRAUMATIC, NORMAL INSPECTION, NORMOCEPHALIC Additional comments: Obese person. - Eye Exam Eye Exam: Normal appearance - ENT Exam ENT Exam: Normal External Ear Exam - Neck Exam Neck Exam: Normal Inspection - Respiratory Exam Respiratory Exam: NORMAL BREATHING PATTERN - Cardiovascular Exam Cardiovascular Exam: absent: JVD - GI/Abdominal Exam GI & Abdominal Exam: absent: Distended - Rectal Exam Rectal Exam: Deferred - Extremities Exam Extremities Exam: Normal Inspection - Back Exam Back Exam: NORMAL INSPECTION - Neurological Exam Neurological Exam: Alert - Psychiatric Exam Psychiatric exam: Normal Affect, Normal Mood - Skin Skin Exam: Normal Color Assessment and Plan - Assessment and Plan (Free Text) Assessment: A/P:Frontal headache. Stage IV non small cell lung cancer. Obesity. Leukocytosis. Borderline anemia. Tylenol 650 mg PO x 1.
[2017-02-20] MEDS ORDERED: MethylPREDNISolone 40 mg Vial IVP SCH (10:30)
[2017-02-20] MEDS ORDERED: Ondansetron 16 MG, Dexamethasone 20 MG, DiphenhydrAMINE 25 MG, Famotidine 20 MG in Sodi... IVPB ONE (11:40)
--- NOTE | 2017-02-20 15:19 | PN ---
DATE: 02/20/2017 LOCATION: 365, bed 2. The patient was seen earlier this morning. SUBJECTIVE: The patient is comfortable in bed, not in distress, afebrile. Much improved cough and b reathing. No nausea currently. OBJECTIVE: VITAL SIGNS: The patient is afebrile, blood pressure 100/60, respiratory rate 22, heart rate of 90. HEAD AND NECK: Normocephalic, atraumatic. HEART: S1 and S2 are normal. CHEST: Decreased breath sounds bilaterally with some crackles at the bases, but has improved compare d to yesterday. There is a right anterior chest wall Port-A-Cath. The site is clean, nontender. ABDOMEN: Soft, nontender, nondistended. LABORATORY DATA: Unfortunately, we are unable to review the labs because the computer systems are do wn. ASSESSMENT: We have a 66-year-old male with stage IV nonsmall cell lung cancer, status post right pn eumonectomy in 2011, coming in with probable right lower lobe healthcare-associated pneumonia/postobs tructive pneumonitis. PLAN: We are continuing the patient on his antibiotics, and we will continue to trend WBC count. Co ntinue to monitor his clinical response and we will discuss this with Dr. Ram and see if the merritt ent will be undergoing more chemotherapy. Brooks Hebert M.D. cc: [id number] TT: 02/20/2017 15:17:55 Confirmation # [id number] Dictation # [id number] viji
--- NOTE | 2017-02-20 16:57 | PN ---
DATE: 02/20/2017 REASON FOR CONSULTATION AND FOLLOWUP: Pericardial effusion on CAT scan, a large pericardial effusion on CAT scan, lung CA, lung CA. BRIEF CLINICAL HISTORY: This is a 66-year-old male ____ history of recent lung CA, admitted with keara rtness of breath, on chemo. Seen in the chemo unit. CAT scan shows large pericardial effusion. Ech o done shows small pericardial effusion, mitral regurgitation, tricuspid regurgitation, preserved LV function. The patient denies any chest pain, but complained of shortness of breath, unchanged. PHYSICAL EXAMINATION: As follows: VITAL SIGNS: Temperature afebrile, heart rate 80, blood pressure 130/80. HEENT: PERRLA. Extraocular muscles intact. NECK: Supple. No carotid bruits. No thyromegaly. CHEST: Clear to auscultation. HEART: S1, S2 regular. ABDOMEN: Soft. EXTREMITIES: Clubbing and cyanosis negative, 1+ pedal edema. BLOOD WORKUP: Pending as computer system is down. IMPRESSION: Lung cancer, pericardial effusion, ex-tobacco abuse, hypertension, hyperlipidemia. Echo shows mild pericardial effusion, ____ tricuspid regurgitation. RECOMMENDATION: Continue chemo. Echo shows ____, but no sign of tamponade. We will follow with you . Thank you, Dr. Umaña/Dr. Ram for providing us the opportunity in taking care of the patient . Discussed with Dr. Ram about the echo findings. Chante Bullard MD cc: [phone] TT: 02/20/2017 16:57:30 Confirmation # [id number] Dictation # [id number]
[2017-02-20] MEDS: Albuterol-Ipratrop 3 mg / 0.5 (3 ml) UD IH SCH (20:13)
[2017-02-20] MEDS: Acetylcysteine 20% Inhal Soln (4ml) IH SCH (20:13)
[2017-02-20] MEDS: Cefepime 1gm in NS 100ml 1 GM/100 ML BAG IVPB SCH (20:58)
[2017-02-20 21:45] VITALS: BP 105/56; PULSE 95; TEMP 97.5; O2SAT 97
--- NOTE | 2017-02-21 08:17 | DS ---
Discharge summary for Dr. Ram. SUBJECTIVE: The patient is a 66-year-old male seen sitting up in bed with his daughter at the [facility], anxious for discharge home after completing treatment as per Dr. Ram's with treatment for his pneumonia continuing. As per Dr. Hebert's recommendation, we will continue antibiotics as an outpatien t as the patient will be discharged home today for personal family matters to be attended at home. [place] is very anxious for discharge. With this patient will have strict followup as per his daughter. He will take medicines as recommended that would be listed. These medicines were called into [facility] [phone]. He is in no acute distress. It should be noted the computers were down today with the patient's treatments and his information be ing done on hard copy paper. OBJECTIVE: PHYSICAL EXAMINATION: VITAL SIGNS: Vital signs are from yesterday with the review of today's vital signs within normal rang e. His labs are also listed from yesterday with review of today's labs acceptable for discharge as per Dr. Ram. His procalcitonin 0.05 done 2 days prior. HEENT: Unremarkable. NECK: Supple. HEART: Regular rate. LUNGS: Clear. ABDOMEN: Soft, nontender, obese. EXTREMITIES: +1 edema. NEUROLOGIC: Awake and alert. ASSESSMENT: Stage IV nonsmall cell cancer of the lung, adenocarcinoma, hypertension, depression, ple ural effusion, pneumonia, chronic obstructive pulmonary disease. After conversation with Dr. Ram, we will discharge the patient home today on his present medical regimen, which was reviewed with the patient and his daughter with the patient's medications for disc harge to include gabapentin 600 mg once a day, Risperdal 25 mg once a day, sertraline 25 mg once a da y, diltiazem 120 mg once a day. Also, the patient will be getting doxycycline 100 mg once a day for 7 days, prednisone 20 mg twice a day for 1 week, then 20 mg once a day for 1 week with tapering down. He will follow up in the office for a tapering regimen. Also, we will give DuoNeb and metered dose inhaler q. 6 hours shortness of breath, wheezing with consideration for his insurance. Should it not be covered then we will recommend with albuterol same regimen. We will also recommend for the patien t to continue his amlodipine 10 mg once a day with codeine as needed for severe cough. His diet is r egular as tolerated. His followup will be in the office in 1 week's time or earlier. Tod Umaña MD cc: [phone] TT: 02/21/2017 02:53:46 jn
[2017-02-21] MEDS ORDERED: diltiaZEM 240 mg/24 Hours CD Cap PO SCH (10:00)
[2017-02-21 12:58] LABS: BLOOD UREA NITROGEN 26 mg/dL (7-21); CALCIUM 9.2 mg/dL (8.4-10.5); CARBON DIOXIDE 25 mmol/L (21-33); CHLORIDE 102 mmol/L (98-107); GFR AFRICAN-AMERICAN > 60; GLUCOSE,RANDOM 278 mg/dL (70-110); SODIUM 138 mmol/L (132-148)
[2017-02-21 18:32] LABS: HEMATOCRIT 35.9 % (42.0-52.0); MEAN CELL VOLUME 93.5 fL (80.0-105.0); MEAN CORPUSCULAR HEMOGLOBIN 30.7 pg (25.0-35.0); MEAN CORPUSCULAR HGB CONC 32.9 g/dl (31.0-37.0); MEAN PLATELET VOLUME 9.3 fl (7.0-11.0); RED CELL DISTRIBUTION WIDTH 14.1 % (11.5-14.5); WHITE BLOOD COUNT 21.2 10^3/ul (4.5-11.0)
--- NOTE | 2017-02-23 20:32 | PQF SEPSIS ---
02/23/17 Dr. Ram, ID tax consultant documents sepsis secondary to pneumonia on his consult. This is the only place in which sepsis is documented. Was sepsis ruled in, ruled out, undetermined, other? If sepsis was ruled in, was this present on admission? Thank you. Clarification of your documentation is requested to better reflect the severity of illness and intensity of treatment of your patient. Indicators present [] Temp < 96.8 or > 100.4 [] WBC count > 12,000/mm3 or <000/mm3 or 10% immature neutrophils [] Heart Rate > 90 [] Respiratory Rate > 20 [] Fever or hypothermia [] Chills [] Positive blood cultures [] Hypotension [] Metabolic acidosis (Elevated lactate level, anion gap or reduced blood pH) [] Acute confusion /Altered Mental Status [] Shock [] Other: [] Location in the medical record that reflects the above clinical findings: [] Treatment Provided: [] PHYSICIAN'S RESPONSE Based on your medical judgment of the clinical indicators outlined above, are you treating this patient for a known or suspected: [] Sepsis / Septicemia Please specify organism if known [] [] SIRS (Systemic Inflammatory Response Syndrome) [] Severe Sepsis (Sepsis with Associated Organ Dysfunction) [] Fever of Unknown Origin [] Other, please indicate: [] [] If Unable to Determine, please check the box, sign and date. Present On Admission (POA) Indicator: [] Present at the time of admission [] Not present at the time of admission [] Clinically Undetermined In responding to this query, please exercise your independent professional judgment. The fact that a question is asked does not imply that any particular answer is desired or expected. Thank you for your clarification on this documentation. If you have any questions please call:[ ] * Thank you, [ ] director mba [facility]
== END 2017-02-20 22:50 | disposition home or self-care (01) | DRG 194 ==
LOC: ED 11:55 → ERH 13:17 → 3RNO 15:35
PROVIDERS: ADMIT Family Medicine; ATTEND Family Medicine
DX: J18.9 Pneumonia, unspecified organism (principal); J90 Pleural effusion, not elsewhere classified; I31.3 Pericardial effusion (noninflammatory); R65.10 Systemic inflammatory response syndrome (SIRS) of non-infectious origin without acute organ dysfunction; J44.0 Chronic obstructive pulmonary disease with (acute) lower respiratory infection; C34.91 Malignant neoplasm of unspecified part of right bronchus or lung; I08.1 Rheumatic disorders of both mitral and tricuspid valves; J98.11 Atelectasis; I10 Essential (primary) hypertension; D64.9 Anemia, unspecified; Y95 Nosocomial condition; Z90.2 Acquired absence of lung [part of]; Z92.21 Personal history of antineoplastic chemotherapy; Z92.3 Personal history of irradiation; E66.9 Obesity, unspecified; Z68.34 Body mass index [BMI] 34.0-34.9, adult; F32.89 Other specified depressive episodes; E78.5 Hyperlipidemia, unspecified; F17.210 Nicotine dependence, cigarettes, uncomplicated; J98.01 Acute bronchospasm; S22.31XD Fracture of one rib, right side, subsequent encounter for fracture with routine healing; Z79.899 Other long term (current) drug therapy; R40.2412 Glasgow coma scale score 13-15, at arrival to emergency department; R51 Headache

== ENCOUNTER 2017-07-11 09:51 | Inpatient (IN) | payer BC, MEDICARE ==
--- NOTE | 2017-07-11 10:11 | ED PDOC ---
Arrival/HPI - General Chief Complaint: Shortness Of Breath Time Seen by Provider: 07/11/17 10:10 Historian: Family - History of Present Illness Narrative History of Present Illness (Text): 07/11/17 10:11 A 67 year old male, whose past medical history includes stage 4 lung cancer on chemotherapy, sent into the emergency department by oncologist for worsening shortness of breath. History obtained through family who translated for patient. Daughter reports worsening shortness of breath, dyspnea on exertion and productive cough over the past weeks. Daughter denies fever, chills, nausea , vomiting, abdominal pain, chest pain or any other complaints. Oncologist: Dr. Ram Time/Duration: 1 week Symptom Course: Worsening Quality: Other Context: Home Past Medical History - Provider Review Nursing Documentation Reviewed: Yes - Infectious Disease Hx of Infectious Diseases: None - Cardiac Hx Hypertension: Yes Hx Pacemaker: No - Pulmonary Hx Respiratory Disorders: Yes (lung ca dx 2011) Other/Comment: Stage 4 lung CA - Neurological Hx Paralysis: No - HEENT Hx HEENT Disorder: Yes (eyeglasses) - Renal Hx Renal Disorder: No - Endocrine/Metabolic Hx Endocrine Disorders: No - Hematological/Oncological Hx Cancer: Yes (right sided lung) Hx Chemotherapy: Yes (2012) Other/Comment: non small lung ca r upper lobe. 1/3 lung removal - Integumentary Hx Dermatological Disorder: No - Musculoskeletal/Rheumatological Hx Falls: No - Gastrointestinal Hx Gastrointestinal Disorders: No - Genitourinary/Gynecological Hx Genitourinary Disorders: No - Psychiatric Hx Anxiety: Yes Hx Depression: Yes Hx Substance Use: No - Surgical History Other/Comment: 08/2012 tumor removal from lung 3 removed. 2000 hernia - Anesthesia Hx Anesthesia Reactions: No Family/Social History - Physician Review Nursing Documentation Reviewed: Yes Family/Social History: No Known Family HX Smoking Status: Former Smoker Hx Alcohol Use: No Hx Substance Use: No Allergies/Home Meds Allergies/Adverse Reactions: Allergies No Known Allergies Allergy (Verified 07/11/17 10:01) Home Medications: Home Meds Medication Instructions Recorded Confirmed Codeine [Codeine Sulfate] 30 mg PO QID PRN 02/18/17 07/11/17 [id number] CD [Cardizem CD] 240 mg PO DAILY 02/18/17 07/11/17 Benzonatate [Tessalon Perles] 100 mg PO TID 07/11/17 07/11/17 Folic Acid [Folic Acid] 1 mg PO BID 07/11/17 07/11/17 Furosemide [Lasix] 20 mg PO DAILY 07/11/17 07/11/17 Gabapentin [Neurontin] 300 mg PO TID 07/11/17 07/11/17 Omeprazole 20 mg PO BID 07/11/17 07/11/17 Physical Exam - Physical Exam Narrative Physical Exam (Text): - Review of Systems Constitutional: Normal. absent: Fatigue, Weight Change, Fevers Eyes: Normal ENT: denies sore throat, denies tristhmus Respiratory: (+) SOB, VOGT, Cough, Sputum Cardiovascular: absent: Chest Pain, Palpitations, Syncope Gastrointestinal: Normal. absent: Abdominal Pain, Diarrhea, Nausea, Vomiting Genitourinary: Normal. absent: Dysuria, Frequency, Hematuria Musculoskeletal: Normal. absent: Arthralgias, Back Pain, Neck Pain Skin: no rashes, no erythema Neurological: absent: Focal Weakness Endocrine: Normal Hemo/Lymphatic: Normal Psychiatric: No suicidal or homicidal ideations Physical exam Patient appears age appropriate in no distress, speaking full sentences without difficulty - Systems Exam Head: Present: Atraumatic, Normocephalic Pupils: Present: PERRL Extroacular Muscles: Present: EOMI Conjunctiva: Present: Normal Mouth: Present: Moist Mucous Membranes Neck: Present: Normal Range of Motion. No: MIDLINE TENDERNESS, Paraspinal Tenderness Respiratory/Chest: Present: Mild respiratory distress, Bilateral expiratory wheezing No: Accessory Muscle Use, Tachypneic Cardiovascular: Present: Regular Rate and Rhythm, Normal S1, S2, Peripheal Pulses Present. No: Murmurs Abdomen: Present: Normal Bowel Sounds. No: Tenderness, Distention, Peritoneal Signs, Rebound, Guarding Back: Present: Normal Inspection. No: Midline Tenderness, Paraspinal Tenderness Upper Extremity: Present: Normal Inspection. No: Cyanosis, Edema Lower Extremity: Present: Bilateral lower extremity swelling, +2 edema Neurological: Present: GCS=15, Speech Normal, cranial nerves II through XII fully intact with no cerebellar abnormality, neurosensory fully intact. No focal neurological deficits. Skin: Present: Warm, Dry, Normal Color. No: Rashes Lymphatic: Present: OX3, NI, NC Psychiatric: Present: Alert, Oriented x 3, Normal Insight, Normal Concentration Vital Signs Temp Pulse Resp BP Pulse Ox 07/11/17 11:07 137 H 18 142/77 98 07/11/17 10:00 98.6 F 130 H 19 109/75 98 Appearance: Positive for: Well-Appearing, Non-Toxic, Comfortable Pain Distress: None Mental Status: Positive for: Alert and Oriented X 3 Medical Decision Making ED Course and Treatment: 07/11/17 10:11 Impression: A 67 year old male with worsening shortness of breath. On exam, mild respiratory distress with bilateral expiratory wheezing, bilateral lower extremity swelling, +2 edema. Plan: -- Chest CT -- Chest xray -- EKG -- Labs -- Blood culture -- Duoneb, Aspirin, Solumedrol, Rocephin and Zithromax -- Reassess and disposition Prior Visits: Notes and results from previous visits were reviewed. Patient last seen on 02/20 after being treated for PNA. Progress Notes: EKG shows sinus tachycardia at [address]-segment elevations, normal intervals. Interpreted by me. 07/11/17 11:[address] Ram, asked to cancel CT angio of chest because patients symptoms are not related to PE. States to change imaging to neck/chest CT with and without contrast. Request Dr. Oleg Williamson and Dr. Randee Vaca for consult. Asked to admit patient to telemetry under his service. Patient evaluated by Dr. Vaca at bedside. Report Date : 07/11/2017 11:36:30 Procedure: Chest xray Dictator : Oleg De Jesus MD IMPRESSION: Complete opacification of right hemithorax with volume loss and shift of heart and mediastinum towards the right. This represents interval change since prior examination where there was some aerated lung remaining in the right santhosh thorax. 07/11/17 12:43 CT machine broken dw Dr. Ram, he is aware. States to send pt to the floor. He already contacted Dr. Williamson, and he will f/u with CT when it gets done. pt in no resp. distress at this time. Aware of and agrees with plan. - Lab Interpretations Lab Results: 07/11/17 10:00 07/11/17 10:00 Lab Results 07/11/17 11:00: PT 14.0 H, INR 1.30 H, APTT 77.9 H* 10/06/17 10:00: WBC 11.8 H D, RBC 3.86, Hgb 11.4 L, Hct 36.3 L, MCV 94.0, MCH 29.5, MCHC 31.4, RDW 14.1, Plt Count 321, MPV 9.3, Gran % 87.5 H, Lymph % (Auto ) 5.0 L, [place] % (Auto) 6.0, Eos % (Auto) 1.3 L, Baso % (Auto) 0.2, Gran # 10.29 H, Lymph # 0.6 L, [place] # 0.7 H, Eos # 0.2, Baso # 0.02, Neutrophils % (Manual) 88 H, Band Neutrophils % 1, Lymphocytes % (Manual) 5 L, Monocytes % (Manual) 5, Eosinophils % (Manual) 1, Platelet Evaluation Normal, Large Platelets Present, Hypochromasia Slight, Anisocytosis (manual) Slight 07/11/17 10:00: Sodium 141, Potassium 3.5 L, Chloride 99, Carbon Dioxide 33, Anion Gap 13, BUN 16, Creatinine 0.9, Est GFR ( Amer) > 60, Est GFR (Non- Af Amer) > 60, Random Glucose 153 H, Calcium 9.0, Total Bilirubin 0.4, AST 21, ALT 41, Alkaline Phosphatase 134 H, Lactate Dehydrogenase 431, Total Creatine Kinase 39, Troponin I < 0.01 D, NT-Pro-B Natriuret Pep 779 H, Total Protein 6.8 , Albumin 3.4, Globulin 3.4, Albumin/Globulin Ratio 1.0 L I have reviewed the lab results: Yes - RAD Interpretation Radiology Orders: 07/11/17 10:18 CHEST PORTABLE [RAD] Stat 07/11/17 11:10 NECK & CHEST W/WO CONTRAST [CT] Stat - Medication Orders Current Medication Orders: Budesonide (Pulmicort Respules) 0.5 mg IH [id number] MITALI Levalbuterol HCl (Xopenex) 0.63 mg IH [id number] MITALI Levalbuterol HCl (Xopenex) 0.63 mg IH Q2 PRN PRN Reason: Shortness of Breath Methylprednisolone (Solu-Medrol) 40 mg IVP Q8H [facility] Last Admin: 07/11/17 11:37 Dose: Discontinued Medications Albuterol/Ipratropium (Duoneb 3 Mg/0.5 Mg (3 Ml) Ud) 3 ml IH Q15M MITALI Stop: 07/11/17 11:01 Last Admin: 07/11/17 11:21 Dose: 3 ml Aspirin (Aspirin Chewable) 324 mg PO STAT STA Stop: 07/11/17 10:19 Last Admin: 07/11/17 10:22 Dose: 324 mg Ceftriaxone Sodium (Rocephin 1 Gram Ivpb) 1 gm in 100 mls @ 200 mls/hr IV STAT STA PRN Reason: Protocol Stop: 07/11/17 10:46 Last Admin: 07/11/17 10:36 Dose: 200 mls/hr eMAR Start Stop Document 07/11/17 10:36 SE (Rec: 07/11/17 10:36 [id number]) Intravenous Solution Start Date 07/11/17 Start Time 10:36 Azithromycin (Zithromax 500mg In Ns) 500 mg in 250 mls @ 167 mls/hr IVPB STAT STA PRN Reason: Protocol Stop: 07/11/17 11:46 Last Admin: 07/11/17 11:21 Dose: 167 mls/hr eMAR Start Stop Document 07/11/17 11:21 SE (Rec: 07/11/17 11:21 [id number]) Intravenous Solution Start Date 07/11/17 Start Time 11:21 Methylprednisolone (Solu-Medrol) 125 mg IVP STAT STA Stop: 07/11/17 10:18 Last Admin: 07/11/17 10:22 Dose: 125 mg IVP Administration Document 07/11/17 10:22 SE (Rec: 07/11/17 10:22 [id number]) Charges for Administration # of IVP Administrations 1 Promethazine HCl (Phenergan Syrup) 6.25 mg PO STAT STA Stop: 07/11/17 10:47 Last Admin: 07/11/17 10:57 Dose: 6.25 mg - Scribe Statement The provider has reviewed the documentation as recorded by the Lynnibe Yesica Dee Provider Scribe Attestation: All medical record entries made by the Scribe were at my direction and personally dictated by me. I have reviewed the chart and agree that the record accurately reflects my personal performance of the history, physical exam, medical decision making, and the department course for this patient. I have also personally directed, reviewed, and agree with the discharge instructions and disposition. Disposition/Present on Arrival - Present on Arrival Any Indicators Present on Arrival: No History of DVT/PE: No History of Uncontrolled Diabetes: No Urinary Catheter: No History of Decub. Ulcer: No History Surgical Site Infection Following: None - Disposition Have Diagnosis and Disposition been Completed?: Yes Diagnosis: Lung cancer Disposition: HOSPITALIZED Disposition Time: 12:47 Patient Plan: Admission Condition: FAIR
[2017-07-11] MEDS ORDERED: Azithromycin 500MG/NS 250ml 500 MG/250 ML BAG IVPB STA (10:17)
[2017-07-11] MEDS ORDERED: cefTRIAXone 1 gm 1 GM/100 ML BAG IV STA (10:17)
[2017-07-11] MEDS: Albuterol-Ipratrop 3 mg / 0.5 (3 ml) UD IH SCH ×3 (10:22→11:21)
[2017-07-11 10:33] LABS: BASO # 0.02 K/mm3 (0.0-2.0); BASO % 0.2 % (0.0-3.0); EOS # 0.2 (0.0-0.7); EOS % 1.3 % (1.5-5.0); GRAN # 10.29 (1.4-6.5); GRAN % 87.5 % (50.0-68.0); HEMATOCRIT 36.3 % (42.0-52.0); LYMPH # 0.6 (1.2-3.4); MEAN CORPUSCULAR HEMOGLOBIN 29.5 pg (25.0-35.0); MEAN CORPUSCULAR HGB CONC 31.4 g/dl (31.0-37.0); MEAN PLATELET VOLUME 9.3 fl (7.0-11.0); MONO # 0.7 (0.1-0.6); PLATELET COUNT 321 10^3/uL (120.0-450.0); RED CELL DISTRIBUTION WIDTH 14.1 % (11.5-14.5); WHITE BLOOD COUNT 11.8 10^3/ul (4.5-11.0)
[2017-07-11 10:44] LABS: ALKALINE PHOSPHATASE 134 U/L (38-126); ALT/SGPT 41 U/L (7-56); AST/SGOT 21 U/L (17-59); BILIRUBIN,TOTAL 0.4 mg/dL (0.2-1.3); BLOOD UREA NITROGEN 16 mg/dL (7-21); CARBON DIOXIDE 33 mmol/L (21-33); CHLORIDE 99 mmol/L (98-107); GFR AFRICAN-AMERICAN > 60; GLUCOSE,RANDOM 153 mg/dL (70-110); POTASSIUM 3.5 mmol/L (3.6-5.0); SODIUM 141 mmol/L (132-148); TOTAL PROTEIN 6.8 g/dL (5.8-8.3)
[2017-07-11] MEDS ORDERED: Promethazine 6.25 MG/5 ML CUP PO STA ×2 (10:44→10:46)
[2017-07-11 10:53] LABS: INR 1.3 (0.93-1.08)
[2017-07-11 11:03] LABS: TROPONIN I < 0.01 ng/mL
[2017-07-11 11:11] LABS: BAND 1 % (0-2); EOSINOPHIL 1 % (0.0-3.0); NEUTROPHIL 88 % (50.0-70.0); PLATELET ESTIMATE NORMAL (NORMAL)
[2017-07-11 11:11] LABS: PARTIAL THROMBOPLASTIN TIME 77.9 Seconds (23.7-30.8)
[2017-07-11 11:12] LABS: ANISOCYTOSIS SLIGHT; HYPOCHROMIA SLIGHT; LARGE PLATELETS PRESENT
[2017-07-11] MEDS ORDERED: Levalbuterol 0.63 MG/3 ML Inhal Soln UD IH PRN (11:29)
[2017-07-11] MEDS: MethylPREDNISolone 40 mg Vial IVP SCH ×2 (11:37→21:02)
--- NOTE | 2017-07-11 11:37 | RAD ---
HISTORY: cough COMPARISON: 02/18/2017 FINDINGS: LUNGS: Complete opacification of the right santhosh thorax. There is mild shift of the heart and mediastinum towards the right side. There is deviation of the trachea towards the right side. This finding may reflect previous right pneumonectomy. This may reflect atelectasis or consolidation. There may be pleural effusion. These cannot be distinguished on the basis of this examination alone. PLEURA: No left pleural effusion or pneumothorax. Again, the possibility of right pleural effusion must be considered. CARDIOVASCULAR: Grossly normal. Right central venous infusion port. OSSEOUS STRUCTURES: No significant abnormalities. VISUALIZED UPPER ABDOMEN: Normal. OTHER FINDINGS: None. IMPRESSION: Complete opacification of right hemithorax with volume loss and shift of heart and mediastinum towards the right. This represents interval change since prior examination where there was some aerated lung remaining in the right santhosh thorax.
[2017-07-11] MEDS: Levalbuterol 0.63 MG/3 ML Inhal Soln UD IH SCH ×2 (13:42→21:00)
--- NOTE | 2017-07-11 15:01 | CON ---
DATE: 07/11/2017 PULMONARY CONSULTATION REASON FOR CONSULTATION: Shortness of breath. REFERRING PHYSICIAN: Dr. Ram. HISTORY OF PRESENT ILLNESS: The patient is a 67-year-old male, with past medical history significant for advanced/extensive, recurrent non-small cell cancer of the right lung, status post partial right lung resection, advanced chronic obstructive pulmonary disease, noncompliance with office followup and pulmonary medications (last saw Dr. Gann in January of this year; on no pulmonary meds at home), who presents with shortness of breath at rest, dyspnea on exertion, cough, and sputum production for the past 2 weeks. There is no history of chest pain, coughing up of blood, or chest pain - made worse with deep respirations. There is no history of temperatures, chills or infectious exposure. There is no history of night sweats. The patient has lost weight as of recent, with decreased appetite. No history of leg or calf pains. No history of syncope or diaphoresis. No history of recent travel. The patient has fell several times at home. REVIEW OF SYSTEMS: No history of nausea, vomiting or diarrhea. No acute urinary symptoms. No new neurologic complaints. Rest of the review of systems is negative. ALLERGIES: NO KNOWN ALLERGIES. SOCIAL HISTORY: Positive for tobacco, negative for alcohol. FAMILY HISTORY: No inheritable diseases. HOME MEDICATIONS: Include Cardizem, Neurontin, Lasix, omeprazole, and folate. PHYSICAL EXAMINATION: GENERAL: The patient is mildly short of breath at rest. He is in no acute distress. VITAL SIGNS: Temperature is 98.6, pulse of 137, respiratory rate 20/22, blood pressure 142/77. Oxygen saturation on room air is 98%. HEENT: Normocephalic, atraumatic. No JVD. There is some swelling of his face and right neck area. CARDIOVASCULAR: Positive S1, S2. No S3. LUNGS: Bronchial breath sounds - right lung. Scattered bilateral rhonchi and wheezing are also appreciated. EXTREMITIES: No clubbing, cyanosis or edema. Calves are nontender to palpation. GI: Abdomen is soft, nontender and nondistended. Bowel sounds are positive. SKIN: No acute rash. NEUROLOGIC: Limited at the present time. LABORATORY DATA: Chest x-ray was done this morning and reviewed. There is significant opacification of the right lung, with ipsilateral tracheal shift. It is somewhat worse, but not significantly changed from the chest x-ray of 02/18/2017. CBC: White count 11.8, hemoglobin 11.4, hematocrit 36.3, platelets of 321. Complete metabolic profile: Potassium 3.5, glucose 153, alkaline phosphatase 134. B-type natriuretic peptide 779. Rest of the metabolic profile is within normal limits. IMPRESSION: 1. Acute bronchitis. 2. Advanced chronic obstructive pulmonary disease. 3. 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 4. 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 5. Anemia. 6. Tachyarrhythmias PLAN: I did discuss the case with the patient and daughter at length. I have also discussed the case with Dr. Ram at length. The patient presents to [facility] with a 2-week history of worsening pulmonary symptoms. I did review the chest x-ray--as above. There is significant opacification of the right lung, slightly worse from the film done in February of this year. The patient also had a recent outpatient CT scan done at another institution. As per Dr. Ram, there remains significant tumor burden with atelectasis of the right lung. Apparently, the CT scan has not changed significantly from the CT scan done in February. A repeat CT scan has been ordered - not done yet. On physical exam, there is moderate bronchospasm noted. I will start the patient on intravenous steroids and inhaled steroids. I will also start the patient on Xopenex nebulizer treatments (due to the tachycardia). Again, I did have a long private conversation with the daughter this morning. She is well aware that her father's condition is quite terminal. Unfortunately, the overall status/prognosis for this pleasant patient-- remains very very poor. All are aware. Again, I did discuss the case with Dr. Ram at length. Thank you very much for this pulmonary consultation. Kenny Vaca MD MTDRonnie
[2017-07-11] MEDS ORDERED: Lidocaine 2% Inj (20ml) ONE (15:17)
[2017-07-11] MEDS ORDERED: Midazolam 2 MG/2 ML VIAL ONE ×2 (16:25→16:31)
[2017-07-11] MEDS ORDERED: Sodium Chloride 0.45% 1,000 ML IV SCH (17:00)
[2017-07-11] MEDS ORDERED: Potassium Chloride 20 mEq ER Tab PO ONE ×2 (18:18→21:06)
[2017-07-11] MEDS: diltiaZEM IVPB 100mg in NS 100 ML IV PRN (19:19)
[2017-07-11] MEDS ORDERED: Iohexol 350 MG/100 ML VIAL ONE (19:40)
--- NOTE | 2017-07-11 20:03 | VASCULAR ---
PROCEDURE: Removal of tunneled right internal jugular venous access port. CLINICAL HISTORY: Lung carcinoma. Possible SVC syndrome. Remove right IJ venous port PHYSICIAN(S): Oleg Williamson M.D. TECHNIQUE: The relative risks and indications of the procedure were explained to the patient and consent obtained. The patient was placed supine on the arteriogram table and the right neck and chest prepped and draped usual sterile fashion. Conscious sedation and monitoring were provided throughout the procedure by a nurse. 1% Xylocaine was used to anesthetize the skin and soft tissues at the port. A 4 cm incision was made. The port was bluntly dissected and removed. The catheter was removed under fluoroscopic guidance. No retained catheter fragments were seen. The pocket was lavaged with normal saline. The pocket was closed in 2 layers. The patient tolerated the procedure well. IMPRESSION: 1. Removal of tunneled right internal jugular venous access port.
--- NOTE | 2017-07-11 20:17 | CON ---
DATE: 07/11/2017 CONSULTATION SERVICE: Cardiology. REASON FOR CONSULTATION: Pericardial effusion, possibly large, rule out pericardial tamponade as mentioned by Dr. Ram. BRIEF CLINICAL HISTORY: This is a 67-year-old male with past medical history significant for non-small cell lung cancer with metastasis, partial lung resection, advanced chronic COPD, had a CAT scan done and possibly found to be pericardial effusion. The patient is short of breath, also look like superior vena cava syndrome, so cardiac consult was called to rule out anterior pericardial tamponade. The patient is going for removal of the Port-A-Cath, seen in Vascular Lab. Denies any chest pain, but complained of mild shortness of breath. After removal of Port-A-Cath, the patient is going to the recovery area. The patient reassessed in the recovery area, having a blood pressure of 150/50 and heart rate 120, sinus tachycardia. PAST MEDICAL HISTORY: Significant for lung CA with metastasis, status post right lung resection. PREVIOUS CARDIAC WORKUP: As follows: The patient had an echocardiography on 02/19/2017 that showed normal chambers with ejection fraction of 55%, [id number] mitral regurgitation, trace tricuspid regurgitation, RV systolic pressure of 29. There is small circumferential pericardial effusion. No sign of the tamponade dated 02/19/2017. ALLERGIES: NO KNOWN DRUG ALLERGIES. SOCIAL HISTORY: Positive for tobacco abuse. He still smokes off and on. No history of alcohol abuse. FAMILY HISTORY: Noncontributory. CURRENT MEDICATION: Cardizem, Norvasc, Lexapro, enalapril, Codeine and Xanax. REVIEW OF SYSTEMS: As per HPI. Both sides of neck are mildly engorged, status post right-sided removal of the Port-A-Cath now. I have been seen in the recovery area. PHYSICAL EXAMINATION: As follows: VITAL SIGNS: Temperature afebrile, heart rate 120, blood pressure 152/86. HEENT: PERRLA, intact. NECK: Supple. No carotid bruits. No thyromegaly. CHEST: Clear to auscultation. HEART: S1 and S2 regular. ABDOMEN: Soft. EXTREMITIES: Clubbing and cyanosis negative. LABORATORY DATA: Blood workup as follows: WBC 11.8, hemoglobin 11.4, hematocrit 36.3, platelet count 321. Chemistry shows sodium 141, potassium 3.5, chloride 98, carbon dioxide 33, anion gap of 16, BUN 13 and creatinine 0.9, troponin is 0.01. EKG shows atrial flutter 2:1 conduction. Telemetry now shows possible sinus tachycardia, most likely flutter. IMPRESSION: Atrial flutter with 2:1 conduction, pericardial effusion. Previous echo dated 02/19/2017, trace to small pericardial effusion, lung cancer with mets, hypertension, effusion. RECOMMENDATIONS: We will start IV Cardizem, not a candidate for anticoagulation because of pericardial effusion. We get echo to assess LV function and rule out tamponade. We will follow with you. Thank you Dr. Ram for providing us the opportunity in taking care of the patient, Alona Hargrove. Chante Bullard MD
[2017-07-11] MEDS: Budesonide 0.5 mg/2 ml Inhal Susp UD IH SCH (21:00)
[2017-07-11 21:40] VITALS: BMI 32.3
[2017-07-11] MEDS ORDERED: Pneumococcal 23-Valent Vaccine IM ONE (21:40)
--- NOTE | 2017-07-11 22:42 | CARD ---
APPROVED REPORT EKG Measurement Heart [id number] DC 112P [id number] <Conclusion> Consider A Flutter with 2:1 conduction Low voltage QRS Nonspecific ST and T wave abnormality Abnormal ECG
--- NOTE | 2017-07-11 23:05 | CP.PCM.PN ---
Subjective - Date & Time of Evaluation Date of Evaluation: 07/11/17 Time of Evaluation: 22:59 - Subjective Subjective: Patient was seen because his heart rate has been high -132/min, sinus tachycardia on monitor. Complains of palpitation, cough.Denies pain.Speaks Russian language. Medical record was reviewed. Has been on cardizem drip. This 67 year old white male was admitted with worsening shortness of breath. Has PMH of non small cell lung cancer -stage IV, COPD,partial lung resection, pericardial effusion, smoker. Objective - Vital Signs/Intake and Output Vital Signs (last 24 hours): Temp Pulse Resp BP Pulse Ox 98.6 F 130 H 18 152/86 H 98 07/11/17 21:29 07/11/17 22:04 07/11/17 21:29 07/11/17 21:29 07/11/17 17:35 - Medications Medications: Current Medications Acetaminophen (Tylenol 325mg Tab) 650 mg PO Q4 PRN PRN Reason: Pain, Mild (1-3) Budesonide (Pulmicort Respules) 0.5 mg IH [id number] [facility] Last Admin: 07/11/17 21:00 Dose: 0.5 mg Sodium Chloride (Sodium Chloride 0.45%) 1,000 mls @ 80 mls/hr IV .[id number] [facility] Stop: 07/11/17 23:59 Last Admin: 07/11/17 19:11 Dose: 80 mls/hr diltiaZEM IVPB 100mg in NS (Cardizem 100mg In Ns) 100 mls @ 10 mls/hr IV .Q10H PRN; Protocol; 10 MG/HR PRN Reason: TITRATE PER MD ORDER Last Admin: 07/11/17 19:19 Dose: 10 mg/hr, 10 mls/hr Levalbuterol HCl (Xopenex) 0.63 mg IH [id number] [facility] Last Admin: 07/11/17 21:00 Dose: 0.63 mg Levalbuterol HCl (Xopenex) 0.63 mg IH Q2 PRN PRN Reason: Shortness of Breath Methylprednisolone (Solu-Medrol) 40 mg IVP Q8H [facility] Last Admin: 07/11/17 21:02 Dose: 40 mg - Labs Labs: PT 14.0 Seconds (9.9-11.8) H 07/11/17 11:00 INR 1.30 (0.93-1.08) H 07/11/17 11:00 APTT 77.9 Seconds (23.7-30.8) H* 07/11/17 11:00 Most Recent Lab Values WBC 11.8 10^3/ul (4.5-11.0) H D 07/11/17 10:00 RBC 3.86 10^6/uL (3.5-6.1) 07/11/17 10:00 Hgb 11.4 g/dL (14.0-18.0) L 07/11/17 10:00 Hct 36.3 % (42.0-52.0) L 07/11/17 10:00 MCV 94.0 fl (80.0-105.0) 07/11/17 10:00 MCH 29.5 pg (25.0-35.0) 07/11/17 10:00 MCHC 31.4 g/dl (31.0-37.0) 07/11/17 10:00 RDW 14.1 % (11.5-14.5) 07/11/17 10:00 Plt Count 321 10^3/uL (120.0-450.0) 07/11/17 10:00 MPV 9.3 fl (7.0-11.0) 07/11/17 10:00 Gran % 87.5 % (50.0-68.0) H 07/11/17 10:00 Lymph % (Auto) 5.0 % (22.0-35.0) L 07/11/17 10:00 [place] % (Auto) 6.0 % (1.0-6.0) 07/11/17 10:00 Eos % (Auto) 1.3 % (1.5-5.0) L 07/11/17 10:00 Baso % (Auto) 0.2 % (0.0-3.0) 07/11/17 10:00 Gran # 10.29 (1.4-6.5) H 07/11/17 10:00 Lymph # 0.6 (1.2-3.4) L 07/11/17 10:00 [place] # 0.7 (0.1-0.6) H 07/11/17 10:00 Eos # 0.2 (0.0-0.7) 07/11/17 10:00 Baso # 0.02 K/mm3 (0.0-2.0) 07/11/17 10:00 Neutrophils % (Manual) 88 % (50.0-70.0) H 07/11/17 10:00 Band Neutrophils % 1 % (0-2) 07/11/17 10:00 Lymphocytes % (Manual) 5 % (22.0-35.0) L 07/11/17 10:00 Monocytes % (Manual) 5 % (1.0-6.0) 07/11/17 10:00 Eosinophils % (Manual) 1 % (0.0-3.0) 07/11/17 10:00 Platelet Evaluation Normal (NORMAL) 07/11/17 10:00 Large Platelets Present 07/11/17 10:00 Hypochromasia Slight 07/11/17 10:00 Anisocytosis (manual) Slight 07/11/17 10:00 PT 14.0 Seconds (9.9-11.8) H 07/11/17 11:00 INR 1.30 (0.93-1.08) H 07/11/17 11:00 APTT 77.9 Seconds (23.7-30.8) H* 07/11/17 11:00 Sodium 141 mmol/L (132-148) 07/11/17 10:00 Potassium 3.5 mmol/L (3.6-5.0) L 07/11/17 10:00 Chloride 99 mmol/L (98-107) 07/11/17 10:00 Carbon Dioxide 33 mmol/L (21-33) 07/11/17 10:00 Anion Gap 13 (10-20) 07/11/17 10:00 BUN 16 mg/dL (7-21) 07/11/17 10:00 Creatinine 0.9 mg/dL (0.8-1.5) 07/11/17 10:00 Est GFR ( Amer) > 60 07/11/17 10:00 Est GFR (Non-Af Amer) > 60 07/11/17 10:00 Random Glucose 153 mg/dL (70-110) H 07/11/17 10:00 Calcium 9.0 mg/dL (8.4-10.5) 07/11/17 10:00 Total Bilirubin 0.4 mg/dL (0.2-1.3) 07/11/17 10:00 AST 21 U/L (17-59) 07/11/17 10:00 ALT 41 U/L (7-56) 07/11/17 10:00 Alkaline Phosphatase 134 U/L (38-126) H 07/11/17 10:00 Lactate Dehydrogenase 431 U/L (333-699) 07/11/17 10:00 Total Creatine Kinase 39 U/L (35-230) 07/11/17 10:00 Troponin I < 0.01 ng/mL D 07/11/17 10:00 NT-Pro-B Natriuret Pep 779 pg/mL (0-450) H 07/11/17 10:00 Total Protein 6.8 g/dL (5.8-8.3) 07/11/17 10:00 Albumin 3.4 g/dL (3.0-4.8) 07/11/17 10:00 Globulin 3.4 gm/dL 07/11/17 10:00 Albumin/Globulin Ratio 1.0 (1.1-1.8) L 07/11/17 10:00 - Constitutional Appears: Well, No Acute Distress - Head Exam Head Exam: ATRAUMATIC, NORMAL INSPECTION, NORMOCEPHALIC - Eye Exam Eye Exam: Normal appearance - ENT Exam ENT Exam: Normal External Ear Exam - Neck Exam Neck Exam: Normal Inspection - Respiratory Exam Respiratory Exam: Clear to Ausculation Bilateral, NORMAL BREATHING PATTERN. absent: Accessory Muscle Use, Rales, Rhonchi, Wheezes, Respiratory Distress, Stridor - Cardiovascular Exam Cardiovascular Exam: Tachycardia, REGULAR RHYTHM. absent: JVD - GI/Abdominal Exam GI & Abdominal Exam: absent: Distended - Rectal Exam Rectal Exam: Deferred - Exam Additional comments: Deferred. - Extremities Exam Extremities Exam: Normal Inspection - Back Exam Back Exam: NORMAL INSPECTION - Neurological Exam Neurological Exam: Alert, Oriented x3 - Psychiatric Exam Psychiatric exam: Normal Affect, Normal Mood - Skin Skin Exam: Normal Color Assessment and Plan - Assessment and Plan (Free Text) Assessment: Sinus tachycardia. Stage IV lung cancer. Metastatic lung cancer. Obesity. Leukocytosis. Borderline anemia. Pericardial effusion. Smoker. Plan: Cardizem 15 mg IV now. After which heart rate is down to 84/min. Continue present management.
[2017-07-12] MEDS: diltiaZEM IVPB 100mg in NS 100 ML IV PRN ×3 (02:11→22:09)
[2017-07-12] MEDS: Levalbuterol 0.63 MG/3 ML Inhal Soln UD IH SCH ×4 (03:05→20:00)
[2017-07-12] MEDS: MethylPREDNISolone 40 mg Vial IVP SCH ×3 (04:20→20:33)
[2017-07-12] MEDS ORDERED: Digoxin 500 mcg/2ml (0.5 mg/2ml) Inj IVP ONE (06:26)
[2017-07-12] MEDS: Budesonide 0.5 mg/2 ml Inhal Susp UD IH SCH (08:30)
--- NOTE | 2017-07-12 14:14 | CT ---
PROCEDURE: CT Neck, Chest, Abdomen and Pelvis with contrast HISTORY: Facial swelling. Relevant medical history: Lung cancer COMPARISON: 02/18/2017 CT thorax TECHNIQUE: Contrast dose: 100 cc Omnipaque Radiation dose: Total exam DLP = 139623.43 mGy-cm. This CT exam was performed using one or more of the following dose reduction techniques: Automated exposure control, adjustment of the mA and/or kV according to patient size, and/or use of iterative reconstruction technique. FINDINGS: CT OF THE NECK: PHARYNX: Nasopharynx: Unremarkable. Oropharnx: Unremarkable. Hypopharynx: Unremarkable. LYMPH NODES: Unremarkable. VASCULATURE: Unremarkable. GLANDS: Unremarkable. CERVICAL SPINE: Unremarkable. CT OF THE CHEST: LUNGS: Postoperative changes right santhosh thorax with progressive consolidative change in volume loss. The right santhosh thorax is completely occupied by collapsed right lung and right pleural effusion. MEDIASTINUM: Unremarkable thoracic aorta. No aneurysm or dissection. Increasing pericardial effusion, maximum thickness now 4.6 cm, at at a comparable level on the prior study 2.3 cm. Pulmonary arterial truck unremarkable. No vascular congestion. No lymphadenopathy. PLEURA: No pleural fluid. No pneumothorax. BONES: No fracture. No destructive lesion. Other findings: Postoperative changes in the supraclavicular region on the right appear to be related to removal of the venous access catheter and port. CT OF THE ABDOMEN AND PELVIS: LIVER: Hepatic steatosis. No focal masses. No intrahepatic bile duct dilatation or perihepatic ascites. GALLBLADDER AND BILE DUCTS: Collapsed gallbladder unremarkable. PANCREAS: Atrophic pancreas without focal or acute abnormality. SPLEEN: Multiple cystic areas within the spleen the etiology of which is uncertain. The best defined are well-circumscribed perhaps geographic ranging from 1.922.5 cm. These may represent areas of splenic infarction. Infectious/inflammatory neoplastic etiologies are less likely. ADRENALS: Unremarkable. OTHER FINDINGS: None. IMPRESSION: Progressive consolidative changes and increasing right pleural effusion. Increasing pericardial effusion. No acute findings in the neck to account for the clinical presentation. Hypo attenuating areas within the spleen of uncertain etiology and significance.
--- NOTE | 2017-07-12 17:47 | PN ---
SUBJECTIVE: I was asked by Dr. Bullard to follow up on this patient. The patient did experience a fall today. He denies passing out. The translation was obtained through the beater tender. The patient was started on Cardizem infusion. He denies any dizziness at this time. PHYSICAL EXAMINATION VITAL SIGNS: Blood pressure 163/90, heart rate 132, temperature 97.7, respiration 20. HEENT: Normocephalic. CHEST: Absent breath sounds over the right lung. HEART: S1 and S2 regular. ABDOMEN: Soft. EXTREMITIES: 1+ pitting edema. EKG reveal atrial flutter with variable AV conduction. Heart rate is 120. I did review the echocardiograph study which revealed moderate circumferential pericardial effusion; however, there was no evidence of tamponade. LABORATORY DATA: Hemoglobin and hematocrit 11.4 and 36.3, white count 11.8, platelet count 121,000. Yesterday, SMA-7 was within normal limits except for potassium of 3.5 and glucose 153. ASSESSMENT: 1. Atrial flutter with rapid ventricular response. 2. Moderate circumferential pericardial effusion. 3. Lung cancer with metastasis and significant right pleural effusion. RECOMMENDATIONS: Continue current Cardizem infusion at 10 mg per hour, continue Solu-Medrol 40 mg intravenously q.8 hours, continue current bronchodilators. I will discuss with Dr. Bullard the possibility of pericardiocentesis. I discussed the case with the patient's daughter on the phone; however, she provided no definite answer to me. Derrell Field MD
--- NOTE | 2017-07-12 19:59 | PN ---
DATE: 07/12/2017 LOCATION: The patient is in Room 276, Bed 2. SUBJECTIVE: This is a 67-year-old white male who was admitted to the hospital with progressive cough, intractable at times with cough-related syncope with multiple falls at home, failure to thrive, shortness of breath along with the coughing and wheezing without any evidence of hemoptysis, who has been admitted to the hospital for further management. Initial impression based on the CAT scan done recently as an outpatient showed complete white out on the right side with compression atelectasis and contraction of the lung on the right side. 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 Left lung appeared to be clear. Based on this after he came in to the hospital, his port was removed with a Port-A-Cath venous access on the right side of his chest infraclavicularly, which was removed. Further testing is still pending. The patient also was noted to have significant pericardial effusion and he had an echocardiogram done this morning, which shows the effusion is large and he may benefit from a pericardial window, though he is not compromised and the patient is currently not in pericardial tamponade. The patient's history dates back to 5 years ago when he had a stage II non-small cell carcinoma of the lung on the right side, status post resection and chemoradiation and then has had slow progressive recurrence over the last 14 months, initially treated with radiation for right upper lobe recurrence. Tumor has progressed to involve mediastinum and the hilum on the right side and based on this, the patient has been started on Keytruda. Treatments have been erratic, has 2 treatments last year in December and January and then the patient was not seen until December of this year, then treatments were resumed after rescanning him. More recently, the patient's coughing has worsened and we felt that some of the reasons for the falls were cough-related syncope, which may be causing some of those symptoms. Cough is intractable at times and makes him feel that he is going to pass out. He complains of chest pain at the time of the cough. Face becomes flushed and neck becomes swollen at the time of the intractable cough. Usually, the coughing fit lasts about 10 to 15 minutes. Subjectively, today, the patient tells me that he is still coughing, though the coughing is not as bad as it was when he came in yesterday. This could be accounted for because of the fact the patient is on IV steroids as well. PHYSICAL EXAMINATION: GENERAL: The patient is examined in bed. He is awake, alert and oriented. VITAL SIGNS: Today reveal a temperature of 97.7, pulse is 102, blood pressure is 163/90, and respirations are 20 per minute. HEENT: Head is normocephalic and atraumatic. NECK: And facial swelling appears to be slightly decreased. LUNGS: Decreased breath sounds at the right side posteriorly. Left lung is clear. CARDIOVASCULAR: Reveals heart rate has come down and the rhythm has become regular at this point in time. ABDOMEN: Soft and nontender. No masses are palpable per se at this point. EXTREMITIES: No significant cyanosis, clubbing or edema. NEUROLOGIC: Reveals no focal deficits. Plantars are flexors. GENITOURINARY: Rectal is deferred. LYMPHATICS: There is no evidence of adenopathy in the neck, axilla or groin. LABORATORY DATA: From yesterday was reviewed. White count is 11.8, hemoglobin 11.4, hematocrit 36 and platelet count 321,000. Chemistries from yesterday also were reviewed, except for borderline low of 3.5 of potassium nothing significant was seen. Total protein was 6.8 and albumin of 3.4. ASSESSMENT: The patient has progressive stage IV metastatic non-small cell carcinoma of the lung involving the right lung with progressive atelectasis related to progressive disease in the mediastinum, left pleural effusion, intractable cough associated with it. Chronic obstructive pulmonary disease, the patient is still smoking. New onset of atrial fibrillation in the background of finding of progressive pericardial effusion as well. PLAN: Spoken with Dr. Bullard. We reviewed the echocardiogram, which shows that the effusion is large. The patient may need a pericardial window even though he is not tamponade at this time. CAT scan of the abdomen reviewed. Also reviewed splenic lesions, which lid up on the PET/CT portion of the scan, which would be most consistent with metastatic disease. On the PET/CT that he had done recently, there was a suggestion of an adrenal metastasis. We will continue the Cardizem for now. Wait to see what the cardiology input is. The patient definitely in my opinion will need a pericardial window and pericardial drainage, which may be the most appropriate thing for the patient at this point in time. Continue current medications. Review the chemistries and proceed from there. I have explained all my findings in detail to the patient through his daughter who has been our official benefits consultant at this time. Blood work for a.m. has been requested. I have also renewed his codeine sulfate 30 mg tablet along with Protonix for his medication regimen in addition to the medications that he is currently on. Routine post-exam instructions have been given. Elaine Ram MD
--- NOTE | 2017-07-12 20:04 | HP ---
Date: 07/11/2017 LOCATION: The patient is in room 276, bed 2, after being admitted through the emergency room. 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 He is now admitted to the emergency room with progressive coughing, cough-related syncope with passing out a few times at home from the intractable cough, that is producing scant phlegm without any hemoptysis. The patient is also having right-sided chest pain at the side of the scar with a prior thoracotomy secondary to the coughing, which tends to be in spasms. The patient also has had multiple falls secondary to the violent episodes of cough at home. The patient has been noncompliant with some of the medications related to his coughing and breathing and the patient has not had received any treatments towards his lung cancer now for about 2 months because of issues at home with his family and also more importantly because of noncompliance. The patient has been seen by Pulmonary in the past, Dr. Ricardo had seen him as an outpatient, but that also has been more than 4 months prior to this admission. The patient had been taking inhalers, along with that he had been taking prednisone tapering doses, along with that he had been also on codeine medication for cough suppression. He had been on Ecotrin 81 mg daily, he was on vitamin D 2000 units daily, risperidone one 0.25 mg at bedtime, he is on diltiazem for blood pressure 120 mg daily, ranitidine, Zantac 150 mg b.i.d., sertraline 25 mg at bedtime and Tessalon cough medicine for cough along with codeine phosphate,also only for cough suppression. The patient is admitted now through the emergency room in addition to the cough and the episodes are intractable at times associated with chest pain. 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 His most recent CAT scan done in an outpatient facility about less than 3 weeks ago, showed persistent disease in the right lung with progression and demonstrated by collapsing of the superior vena cava on the CAT scan along with new-onset of pericardial effusion that was demonstrated on that CAT scan. Also, there was evidence on the CT of the abdomen portion of it that there was of possibility of adrenal metastasis and new splenic metastasis as well. The patient was supposed to continue Keytruda because of the symptoms, was advised to come into the hospital to be reassessed and proceed in the direction that would make his quality of life better. PAST MEDICAL HISTORY: Significant for the fact that 5 years ago, presented with a large tumor of the right lung involving the middle lobe extending into the hilum, stage II B, poorly differentiated carcinoma that has a ring of squamous features. After the resection, the patient received adjuvant chemotherapy, the result for about 3-1/2 to 4 years and then had evidence of recurrence about 18 months ago. The recurrence was initially monitored and the patient received elective radiation to that area and following the radiation, the patient was progressing at which point they recommended chemotherapy and Keytruda in one or two doses in 2015, then was not seen till 12/2016 or 01/2017, when diseases worsened and at that point in time, they had requested additional treatments. His prior cardiac workup during the last admission in 01/2017 where we had done echocardiography in 01/2017 or 02/2017, showed an ejection fraction of 55%, [id number] mitral regurgitation, trace tricuspid regurgitation, right ventricular pressure of 29, small circumferential pericardial effusion at that time. The most recent CAT scan done in the outpatient facility does reveal significant pericardial effusion, which extended to the anterior pericardium, probably more than 100 mL for which reason based on these findings, after talking to the family, it was advised that he come to the ER for further assessment, then be admitted. ALLERGIES: THE PATIENT DOES NOT HAVE ANY ALLERGIES. SOCIAL HISTORY: The patient is still smoking on and off, sometimes up to half a pack a day. No significant history of any alcohol abuse. The patient is working until he lost his job because of his current medical condition. FAMILY HISTORY: Noncontributory. CURRENT MEDICATION: Cardizem, Norvasc, Lexapro, enalapril, codeine and Xanax. REVIEW OF SYSTEMS: A 12-system review of systems was done. The patient denies any history of fever or chills, has been having intractable cough, sometimes with spasms lasting up to 15 minutes, and sometimes because of the coughing, the patient literally falls to the ground, coughing causes also significant right-sided chest pain along with thoracotomy scar of the prior lobectomy. The patient's appetite is decreased. He is complaining that his neck and face are swollen and sometimes the swelling gets worse when the coughing gets intractable. Denies any history of nausea, vomiting or diarrhea. No history of melena. No history of hematochezia. No history of chills. The patient does feel short of breath on exertion. He feels that when he tries to bend down to chart picker something, he feels like that he is going to pass out. Rest of the review of systems as per HPI. PHYSICAL EXAMINATION GENERAL: The patient is awake, alert. VITAL SIGNS: The patient is afebrile. HEENT: Head is normocephalic and atraumatic. Conjunctivae are pale. Sclerae are anicteric. Pupils are equally reactive to light and accommodation. Examination of the oropharynx reveals no oropharyngeal lesions. Tongue is coated. There are no ulcerations. NECK: Both sides of the neck are mildly engorged suggestive of early SVC. There is no palpable adenopathy. LUNGS: Reveal decreased breath sounds on the right side posteriorly. Left lung is relatively clear. HEART: Reveals S1 and S2 to be tachycardic. No gallop is heard. ABDOMEN: Soft, protuberant, nontender. The patient has been complaining of pain in the posterior chest wall along with the side of the thoracotomy in the right side posteriorly. Liver and spleen are not palpable on examination of the abdomen. No rebound, rigidity or guarding noted. EXTREMITIES: Reveal no significant cyanosis, clubbing or edema. NEUROLOGIC: Higher functions are normal. No focal deficits are noted. LABORATORY DATA: Reveals blood work with white count of 11.8, hemoglobin 11.4, hematocrit 36.3, platelet count 321,000. Chemistries reveal a sodium of 141, potassium 3.5, chloride 98, CO2 of 33, anion gap of 16, BUN of 13 and creatinine 0.9, troponin is 0.01. EKG done today shows atrial flutter 2:1 conduction. Telemetry now shows possible tachycardia, most likely flutter. ASSESSMENT AND PLAN: The patient has progressively worsening carcinoma of the right lung, status post resection, status post radiation, currently on Keytruda, he is now admitted with progressive changes in the right lung including complete atelectasis of the right middle and right lower lobes with increasing disease in the right upper lobe as well accounting from the most of the symptoms. 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 The patient has advanced chronic obstructive pulmonary disease on top of all of this. Based on all these assessments, the patient's prognosis is, however, guarded. Family is aware. The patient wants to leave, there is going to be as aggressive as it is feasible under the given circumstances. I have spoken to the daughter and to the patient in great detail through interpretation through the daughter and our plan is to currently make him more comfortable by controlling the heart rate, see if the pericardial effusion can be tapped, if necessary may be even a pericardial window and we will proceed from there. The question of continuing the Keytruda, which has been interrupted a few times is a valid point as the patient could respond to Keytruda, another form of chemotherapy, may be combination such as carboplatinum and gemcitabine and continuation of the Keytruda. Similar, the prognosis is guarded, we will try to get as aggressive as possible as per family's wishes. We will discuss about palliative care as well depending on what we find in the next 72 hours and forth. I have discussed all my findings with the patient through his daughter, I have put in a consult for ____ to see the patient, to assess the patient for placement of either a pericardiocentesis catheter or to assess the patient for pericardial window prior to which we will do a pericardial tap. Consultation with Insulation Helper, Dr. Vaca has also been obtained and I have also asked to take a look at the patient, so he can give his opinion from a vascular point of view. In the meanwhile, we will attempt taking up the Port-A-Cath and then do a venocavogram if necessary to assess the status of the vena cava and if feasible, the patient may be even planned to have a stent placed in the vena cava to open up the vein to help facilitate some of these current symptoms that he has. Routine post exam instructions have been given to the patient. Orders for a.m. have been requested. We will proceed accordingly and very cautiously. The patient has not been yet started on any blood thinners at this time in view of the significant positive pericardial effusion in the anterior part of the pericardium as well. We will speak to the consultants involved in the case and then make appropriate plans. We will speak to the daughter as well. Elaine Ram MD
--- NOTE | 2017-07-12 22:42 | CARD ---
APPROVED REPORT EXAM: LIMITED Two-dimensional and M-mode echocardiogram. INDICATION PERICARDIAL EFFUSION,R/O CARDIAC TAMPONADE LEFT VENTRICLE The left ventricle is normal size. There is normal left ventricular wall thickness. The left ventricular function is normal.EF-55-60% There is normal LV segmental wall motion. The left ventricular diastolic function is normal. No left ventricle thrombus noted on this study. There is no ventricular septal defect visualized. There is no left ventricular aneurysm. There is no mass noted in the left ventricle. RIGHT VENTRICLE The right ventricle is normal size. There is normal right ventricular wall thickness. The right ventricular systolic function is normal. ATRIA The left atrium size is normal. The right atrium size is normal. The interatrial septum is intact with no evidence for an atrial septal defect. GREAT VESSELS The aortic root is normal in size. The ascending aorta is normal in size. The pulmonary artery is normal. The IVC is normal in size and collapses >50% with inspiration. PERICARDIAL EFFUSION Large posterior and moderate anterior percardial effusion ,but no sign of tamponade. <Conclusion> Only 2 D images were obtained to assess Pericardial effusion and r/o Tamponade. preserved LV Fx. Large posterior and moderate anterior pericardial effusion noted , but no sign of tamponade.
--- NOTE | 2017-07-12 22:58 | CARD ---
APPROVED REPORT EKG Measurement Heart [id number] <Conclusion> Atrial Flutter with variable conduction Low voltage QRS Abnormal ECG
[2017-07-13] MEDS: Budesonide 0.5 mg/2 ml Inhal Susp UD IH SCH ×3 (01:11→19:41)
[2017-07-13] MEDS: Levalbuterol 0.63 MG/3 ML Inhal Soln UD IH SCH ×4 (01:11→19:41)
--- NOTE | 2017-07-13 01:13 | CP.PCM.PN ---
Subjective - Date & Time of Evaluation Date of Evaluation: 07/13/17 Time of Evaluation: 01:12 - Subjective Subjective: S:Patient requested something for sleep. Has no other complaints. Medical record was reviewed. Benadryl was ordered. when I went to see patient , he was asleep. O: Last Vital Signs 3 Temp 97.4 F L 07/13/17 00:01 Pulse 109 H 07/13/17 02:00 Resp 18 07/13/17 00:01 BP 129/76 07/13/17 00:01 Pulse Ox 98 07/13/17 00:01 Not in distress. LUNGS:Normal breathing pattern. A:Adjustment insomnia. P:Benadryl 25 mg PO was ordered earlier. Objective - Vital Signs/Intake and Output Vital Signs (last 24 hours): Temp Pulse Resp BP Pulse Ox 97.4 F L 120 H 18 129/76 98 07/13/17 00:01 07/13/17 00:01 07/13/17 00:01 07/13/17 00:01 07/13/17 00:01 Intake and Output: 07/12/17 07/13/17 18:59 06:59 Intake Total 100 100 Balance 100 100 - Medications Medications: Current Medications Acetaminophen (Tylenol 325mg Tab) 650 mg PO Q4 PRN PRN Reason: Pain, Mild (1-3) Budesonide (Pulmicort Respules) 0.5 mg IH [id number] [facility] Last Admin: 07/13/17 01:11 Dose: 0.5 mg Codeine Sulfate (Codeine) 30 mg PO QID PRN PRN Reason: Cough Last Admin: 07/12/17 22:09 Dose: 30 mg diltiaZEM IVPB 100mg in NS (Cardizem 100mg In Ns) 100 mls @ 10 mls/hr IV .Q10H PRN; Protocol; 10 MG/HR PRN Reason: TITRATE PER MD ORDER Last Admin: 07/12/17 22:09 Dose: 10 mg/hr, 10 mls/hr Ceftriaxone Sodium (Rocephin 1 Gram Ivpb) 1 gm in 100 mls @ 100 mls/hr IVPB DAILY [facility] PRN Reason: Protocol Azithromycin (Zithromax 500mg In Ns) 500 mg in 250 mls @ 167 mls/hr IVPB DAILY [facility] PRN Reason: Protocol Levalbuterol HCl (Xopenex) 0.63 mg IH [id number] [facility] Last Admin: 07/13/17 01:11 Dose: 0.63 mg Levalbuterol HCl (Xopenex) 0.63 mg IH Q2 PRN PRN Reason: Shortness of Breath Last Admin: 07/12/17 18:50 Dose: 0.63 mg Methylprednisolone (Solu-Medrol) 40 mg IVP Q8H [facility] Last Admin: 07/12/17 20:33 Dose: 40 mg Pantoprazole Sodium (Protonix Ec Tab) 20 mg PO 0600 [facility] Pregabalin (Lyrica) 25 mg PO Q12 [facility] Last Admin: 07/12/17 22:09 Dose: 25 mg - Labs Labs: PT 14.0 Seconds (9.9-11.8) H 07/11/17 11:00 INR 1.30 (0.93-1.08) H 07/11/17 11:00 APTT 77.9 Seconds (23.7-30.8) H* 07/11/17 11:00
[2017-07-13] MEDS: MethylPREDNISolone 40 mg Vial IVP SCH ×3 (04:20→21:53)
[2017-07-13] MEDS: Pantoprazole 20 mg EC Tab PO SCH (06:03)
[2017-07-13 07:24] LABS: GRAN # 20.6 (1.4-6.5); GRAN % 96.4 % (50.0-68.0); HEMATOCRIT 37.9 % (42.0-52.0); LYMPH # 0.3 (1.2-3.4); LYMPH % 1.4 % (22.0-35.0); MEAN CORPUSCULAR HEMOGLOBIN 28.8 pg (25.0-35.0); MEAN CORPUSCULAR HGB CONC 30.3 g/dl (31.0-37.0); MEAN PLATELET VOLUME 9.4 fl (7.0-11.0); MONO # 0.5 (0.1-0.6); MONO % 2.2 % (1.0-6.0); RED CELL DISTRIBUTION WIDTH 14.3 % (11.5-14.5); WHITE BLOOD COUNT 21.4 10^3/ul (4.5-11.0)
[2017-07-13 07:52] LABS: ALB/GLOB RATIO 1.1 (1.1-1.8); ALKALINE PHOSPHATASE 114 U/L (38-126); ALT/SGPT 39 U/L (7-56); AST/SGOT 30 U/L (17-59); BILIRUBIN,TOTAL 0.4 mg/dL (0.2-1.3); BLOOD UREA NITROGEN 26 mg/dL (7-21); CALCIUM 9.4 mg/dL (8.4-10.5); CARBON DIOXIDE 30 mmol/L (21-33); CHLORIDE 98 mmol/L (98-107); GFR AFRICAN-AMERICAN > 60; GLUCOSE,RANDOM 217 mg/dL (70-110); POTASSIUM 4.6 mmol/L (3.6-5.0); SODIUM 139 mmol/L (132-148); TOTAL PROTEIN 6.9 g/dL (5.8-8.3)
[2017-07-13] MEDS: diltiaZEM IVPB 100mg in NS 100 ML IV PRN ×2 (08:08→18:16)
[2017-07-13] MEDS: cefTRIAXone 1 gm 1 GM/100 ML BAG IVPB SCH (09:48)
[2017-07-13] MEDS: Azithromycin 500MG/NS 250ml 500 MG/250 ML BAG IVPB SCH (09:50)
--- NOTE | 2017-07-13 10:26 | PN ---
DATE: 07/13/2017 PULMONARY NOTE SUBJECTIVE: The patient appears comfortable this morning. He is not short of breath at rest. OBJECTIVE: VITAL SIGNS: Temperature is 97.4, pulse 115, respiratory rate 18, blood pressure 133/78. Oxygen saturation on nasal cannula is 97-98%. HEENT: Normocephalic, atraumatic. NECK: No JVD. There remains some swelling of his face and right neck area. CARDIOVASCULAR: Positive S1, S2. No S3 gallop. LUNGS: Bronchial breath sounds - right lung. There is significant decrease in the rhonchi and wheezing bilaterally. EXTREMITIES: No clubbing, cyanosis or edema. Calves are nontender to palpation. GASTROINTESTINAL: Abdomen is soft, nontender and nondistended. Bowel sounds are positive. SKIN: No acute rash. NEUROLOGIC: Exam limited at the present time. PERTINENT LABORATORY DATA: I did review the results from the neck and chest CAT scan. There is progressive consolidative change and volume loss within the right lung. The consolidative changes represent a combination of increasing tumor burden, post obstructive atelectasis, and right pleural effusion. There is also a large/increasing pericardial effusion. There are also multiple low attenuating lesions within the spleen. IMPRESSION: 1. Acute bronchitis. 2. Advanced chronic obstructive pulmonary disease. 3. 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 4. 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 5. Anemia. 6. Rapid atrial fibrillation/atrial flutter. 7. Large pericardial effusion. PLAN: The patient appears much more comfortable this morning. He is not short of breath at rest. He is coughing much less. He does state to feeling much better overall. Oxygen saturation on nasal cannula is 97-98%. On physical exam, his bronchospasm is significantly less. I will continue the current nebulizer treatments, and decrease the intravenous steroids this morning. The patient remains in rapid atrial fibrillation/atrial flutter. He remains on a Cardizem drip. CAT scan of the neck and chest is noted as above. Progressive disease is noted. In particular, a large pericardial effusion is now noted. Metastatic disease to the pericardium is quite possible at this point in time. I also reviewed the note by Dr. Ram. On the most recent PET/CAT scan, there are findings consistent with adrenal and splenic metastasis. Clinically, the patient is certainly improved - compared to the initial presentation. His bronchospasm is significantly less. There is no significant alveolar-arterial gradient. However, again, the future status/prognosis for this patient remains very poor. All are aware. I will discuss the above with the attending physician. Kenny Vaca MD MTDD
--- NOTE | 2017-07-13 15:01 | PN ---
SUBJECTIVE: The patient is comfortable. He denied any dizziness. PHYSICAL EXAMINATION: VITAL SIGNS: Blood pressure 136/88, heart rate 98, temperature 98.4, respirations 20. HEENT: Normocephalic. CHEST: Absent breath sounds over the right hemithorax. HEART: S1 and S2 regular. EXTREMITIES: 1+ pitting edema. LABORATORY DATA: Hemoglobin and hematocrit 11.5 and 37.9, white count 21.4, platelet count 372,000. Today's SMA-7 is within normal limits except for a glucose of 117 and a BUN of 26. Official echo report is large posterior and moderate anterior pericardial effusion, but no signs of tamponade. Normal ejection fraction. ASSESSMENT: 1. Atrial flutter, currently with controlled heart rate. 2. Moderate to large pericardial effusion, no evidence of tamponade. 3. Lung cancer with significant right pleural effusion. RECOMMENDATIONS: Continue current IV Cardizem at 10 mg per hour, continue IV Rocephin at 1 g daily, Solu-Medrol 40 mg intravenously twice a day, IV Zithromax 500 mg daily. I will further discuss any future intervention both on the pericardial as well as pleural effusion with Dr. Bullard. Derrell Field MD
--- NOTE | 2017-07-13 16:46 | CP.PCM.CON ---
History of Present Illness - History of Present Illness History of Present Illness: 67 year old male with PMH of non-small cell lung cancer stage 4 S/P right pneumonectomy, HTN, obesity with BMI 35 was brought in to [facility] because of continued and worsening shortness of breath as well as dyspnea on exertion. The patient denies fever or chills, no nausea or vomiting, no chest pain, no abdominal pain, no diarrhea, no dysuria. CXR and CT chest has been done which shows consolidative changes on the right. Infectious Diseases consult is requested to further evaluate and manage. Last time the patient was hospitalized was in February 2017. Review of Systems - Review of Systems All systems: reviewed and no additional remarkable complaints except (as per HPI ) Past Patient History - Infectious Disease Hx of Infectious Diseases: None - Past Social History Smoking Status: Light Smoker < 10 Cigarettes Daily - CARDIAC Hx Hypertension: Yes Hx Pacemaker: No Hx Peripheral Edema: Yes (ble +2 pitting) - PULMONARY Hx Respiratory Disorders: Yes (lung ca dx 2011 non small cell right) Hx Chronic Obstructive Pulmonary Disease (COPD): Yes Other/Comment: Stage 4 lung CA - NEUROLOGICAL Hx Paralysis: No - HEENT Hx HEENT Problems: Yes (eyeglasses) - RENAL Hx Chronic Kidney Disease: No - ENDOCRINE/METABOLIC Hx Endocrine Disorders: No - HEMATOLOGICAL/ONCOLOGICAL Hx Cancer: Yes (right sided lung) Hx Chemotherapy: Yes (2012) Other/Comment: non small lung ca r upper lobe. /3 lung removal 2011 - INTEGUMENTARY Hx Dermatological Problems: No - MUSCULOSKELETAL/RHEUMATOLOGICAL Hx Falls: No (past) - GASTROINTESTINAL Hx Gastrointestinal Disorders: No - GENITOURINARY/GYNECOLOGICAL Hx Genitourinary Disorders: No - PSYCHIATRIC Hx Substance Use: No - SURGICAL HISTORY Other/Comment: 08/2012 tumor removal from lung /3 removed. 2000 hernia, rcw pac removed today 07/11/17 - ANESTHESIA Hx Anesthesia Reactions: No Meds Allergies/Adverse Reactions: Allergies Allergy/AdvReac Type Severity Reaction Status Date / Time No Known Allergies Allergy Verified 07/11/17 10:01 - Medications Medications: Current Medications Acetaminophen (Tylenol 325mg Tab) 650 mg PO Q4 PRN PRN Reason: Pain, Mild (1-3) Budesonide (Pulmicort Respules) 0.5 mg IH [id number] [facility] Last Admin: 07/12/17 08:30 Dose: 0.5 mg Codeine Sulfate (Codeine) 30 mg PO QID PRN PRN Reason: Cough diltiaZEM IVPB 100mg in NS (Cardizem 100mg In Ns) 100 mls @ 10 mls/hr IV .Q10H PRN; Protocol; 10 MG/HR PRN Reason: TITRATE PER MD ORDER Last Admin: 07/12/17 12:23 Dose: 10 mg/hr, 10 mls/hr Ceftriaxone Sodium (Rocephin 1 Gram Ivpb) 1 gm in 100 mls @ 100 mls/hr IVPB DAILY [facility] PRN Reason: Protocol Azithromycin (Zithromax 500mg In Ns) 500 mg in 250 mls @ 167 mls/hr IVPB DAILY [facility] PRN Reason: Protocol Levalbuterol HCl (Xopenex) 0.63 mg IH [id number] [facility] Last Admin: 07/12/17 14:15 Dose: 0.63 mg Levalbuterol HCl (Xopenex) 0.63 mg IH Q2 PRN PRN Reason: Shortness of Breath Methylprednisolone (Solu-Medrol) 40 mg IVP Q8H [facility] Last Admin: 07/12/17 12:24 Dose: 40 mg Pantoprazole Sodium (Protonix Ec Tab) 20 mg PO 0600 [facility] Physical Exam - Constitutional Appears: Non-toxic, No Acute Distress - Head Exam Head Exam: NORMAL INSPECTION - ENT Exam ENT Exam: Mucous Membranes Moist - Neck Exam Neck exam: Negative for: Meningismus - Respiratory Exam Respiratory Exam: Decreased Breath Sounds (especially on the right side) - Cardiovascular Exam Cardiovascular Exam: +S1, +S2 - GI/Abdominal Exam GI & Abdominal Exam: Soft. absent: Tenderness Results - Vital Signs Recent Vital Signs: Last Vital Signs Temp 97.7 F 07/12/17 12:00 Pulse 102 H 07/12/17 14:00 Resp 20 07/12/17 12:00 BP 163/90 H 07/12/17 12:00 Pulse Ox 98 07/11/17 17:35 - Labs Result Diagrams: 07/13/17 07:00 07/13/17 07:00 Assessment & Plan - Assessment and Plan (Free Text) Plan: Assessment R/O community-acquired pneumonia on the right side on top of acute bronchitis history of right sided healthcare-associated pneumonia non-small cell lung cancer stage 4 S/P right pneumonectomy HTN obesity with BMI 34 Plan Started patient on Rocephin and Zithromax pending blood, sputum cx, PCT reviewed CT chest reviewed Pulmonary evaluation and recommendations will monitor clinically
--- NOTE | 2017-07-13 20:12 | PN ---
DATE: LOCATION: The patient is in room #276, bed #2. 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 Also had what appeared to be drastic outlet syndrome and his port removed on admission and still trying to workup for early SVC syndrome. This nuclear testing is requested by Dr. Oleg Williamson. In the meantime during the evaluation with the CAT scan, the patient has significant right pleural effusion in addition to pericardial effusion, which is moderate to large without any evidence of pericardial tamponade. The patient currently is on medications to control his heart rate for his atrial flutter and he is on medications for his coughing and COPD. The patient feels that his cough is slightly bit better after being put on Lyrica. Subjectively, the patient noted that the cough is definitely less compared to yesterday. Denies any history of dizziness. No further falls. PHYSICAL EXAMINATION: VITAL SIGNS: Stable. Blood pressure is 136/88, heart rate is 98, T-max is 98.4, and respirations 20. HEENT: Head is normocephalic and atraumatic. Conjunctivae is pale. Sclerae is anicteric. Pupils are equally reactive to light and accommodation. Examination of the oropharynx reveals no oropharyngeal lesions. NECK: Supple. There is no adenopathy. LUNGS: Reveals decreased breath sounds on the right side posteriorly. Left lung is clear. HEART: Reveals S1 and S2 to be regular. ABDOMEN: Soft, protuberant, and nontender. EXTREMITIES: Reveals 1+ pitting edema. NEUROLOGIC: Reveals no focal deficits. LABORATORY DATA: Reveals a hemoglobin of 11.5, hematocrit 37, platelet count 372,000 with a white count of 21.4. Electrolytes are within normal limits except sugar of 117 and BUN of 26. Official report on the echo is a large posterior and moderate anterior pericardial effusion without any signs of tamponade. ASSESSMENT NOTES AND PLAN: The patient has stage IV metastatic non-small cell carcinoma of the lung with thoracic inlet syndrome, but actually seen being compressed secondary to multiple causes of atrial flutter with controlled heart rate, moderate to large pericardial effusion, right pleural effusion, and the background history of stage IV metastatic non-small cell carcinoma of the lung and chronic obstructive pulmonary disease. Plan, we will continue intravenous Cardizem for now. We will continue intravenous Rocephin, Solu-Medrol, and Zithromax. We will plan to see the patient as a candidate for pericardial window with pericardiocentesis. We are going to also speak to Dr. Oleg Williamson. The patient can be a candidate for doing a superior vena cava study because if that is the case, he may need to have stents put in, so he can breathe better because every time he coughs, his neck and the face becomes so swollen that he almost chokes and he feels like he is going to black out. We will also speak to Dr. Bullard regarding possible window pericardiocentesis. Routine plus exam instructions have been given to the patient. I spoke with the patient's daughter, Quoc who interpreted for me, my communication with him. Hopefully, we should resolve some of these issues, so the patient can feel better and then we can continue this treatment as an outpatient with Keytruda. We may have to have another drug along with the Keytruda to synergize and help him control the disease better. Labs have been requested for the a.m. Elaine Ram MD
--- NOTE | 2017-07-14 00:32 | CP.PCM.PN ---
Subjective - Date & Time of Evaluation Date of Evaluation: 07/14/17 Time of Evaluation: 00:30 - Subjective Subjective: S:Requested a sleeping pill. Has no other complaints. Medical record was reviewed. Seen at bedside. O: Last Vital Signs 3 Temp 98.7 F 07/14/17 00:01 Pulse 111 H 07/14/17 00:01 Resp 19 07/14/17 00:01 BP 141/88 07/14/17 00:01 Pulse Ox 99 07/14/17 00:01 Awake, alert,not in distress. LUNGS: Normal breathing pattern. A:Adjustment insomnia. P:Benadryl 25 mg PO stat. Objective - Vital Signs/Intake and Output Vital Signs (last 24 hours): Temp Pulse Resp BP Pulse Ox 98.7 F 111 H 19 141/88 99 07/14/17 00:01 07/14/17 00:01 07/14/17 00:01 07/14/17 00:01 07/14/17 00:01 Intake and Output: 07/13/17 07/14/17 18:59 06:59 Intake Total 800 Balance 800 - Medications Medications: Current Medications Acetaminophen (Tylenol 325mg Tab) 650 mg PO Q4 PRN PRN Reason: Pain, Mild (1-3) Budesonide (Pulmicort Respules) 0.5 mg IH [id number] [facility]AL[facility] Last Admin: 07/13/17 19:41 Dose: 0.5 mg Codeine Sulfate (Codeine) 30 mg PO QID PRN PRN Reason: Cough Last Admin: 07/13/17 21:53 Dose: 30 mg diltiaZEM IVPB 100mg in NS (Cardizem 100mg In Ns) 100 mls @ 10 mls/hr IV .Q10H PRN; Protocol; 10 MG/HR PRN Reason: TITRATE PER MD ORDER Last Admin: 07/13/17 18:16 Dose: 10 mg/hr, 10 mls/hr Ceftriaxone Sodium (Rocephin 1 Gram Ivpb) 1 gm in 100 mls @ 100 mls/hr IVPB DAILY [facility] PRN Reason: Protocol Last Admin: 07/13/17 09:48 Dose: 100 mls/hr Azithromycin (Zithromax 500mg In Ns) 500 mg in 250 mls @ 167 mls/hr IVPB DAILY [facility] PRN Reason: Protocol Last Admin: 07/13/17 09:50 Dose: 167 mls/hr Levalbuterol HCl (Xopenex) 0.63 mg IH [id number] [facility] Last Admin: 07/13/17 19:41 Dose: 0.63 mg Levalbuterol HCl (Xopenex) 0.63 mg IH Q2 PRN PRN Reason: Shortness of Breath Last Admin: 07/12/17 18:50 Dose: 0.63 mg Methylprednisolone (Solu-Medrol) 40 mg IVP Q12 [facility] Last Admin: 07/13/17 21:53 Dose: 40 mg Pantoprazole Sodium (Protonix Ec Tab) 20 mg PO 0600 [facility] Last Admin: 07/13/17 06:03 Dose: 20 mg Pregabalin (Lyrica) 25 mg PO Q12 [facility] Last Admin: 07/13/17 09:48 Dose: 25 mg - Labs Labs: 07/13/17 07:00 07/13/17 07:00 PT 14.0 Seconds (9.9-11.8) H 07/11/17 11:00 INR 1.30 (0.93-1.08) H 07/11/17 11:00 APTT 77.9 Seconds (23.7-30.8) H* 07/11/17 11:00
[2017-07-14] MEDS: Levalbuterol 0.63 MG/3 ML Inhal Soln UD IH SCH ×4 (01:19→19:59)
[2017-07-14] MEDS: diltiaZEM IVPB 100mg in NS 100 ML IV PRN (04:10)
[2017-07-14] MEDS: Pantoprazole 20 mg EC Tab PO SCH (05:44)
[2017-07-14 06:51] LABS: GRAN # 17.6 (1.4-6.5); GRAN % 95.9 % (50.0-68.0); HEMATOCRIT 38.4 % (42.0-52.0); LYMPH # 0.4 (1.2-3.4); MEAN CELL VOLUME 95.5 fl (80.0-105.0); MEAN CORPUSCULAR HEMOGLOBIN 28.9 pg (25.0-35.0); MEAN CORPUSCULAR HGB CONC 30.2 g/dl (31.0-37.0); MEAN PLATELET VOLUME 9.1 fl (7.0-11.0); MONO # 0.4 (0.1-0.6); MONO % 2.1 % (1.0-6.0); RED CELL DISTRIBUTION WIDTH 14.3 % (11.5-14.5); WHITE BLOOD COUNT 18.4 10^3/ul (4.5-11.0)
[2017-07-14 07:07] LABS: ALB/GLOB RATIO 1.1 (1.1-1.8); ALKALINE PHOSPHATASE 113 U/L (38-126); ALT/SGPT 58 U/L (7-56); AST/SGOT 54 U/L (17-59); BILIRUBIN,TOTAL 0.4 mg/dL (0.2-1.3); BLOOD UREA NITROGEN 27 mg/dL (7-21); CALCIUM 9.1 mg/dL (8.4-10.5); CARBON DIOXIDE 31 mmol/L (21-33); CHLORIDE 97 mmol/L (98-107); GFR AFRICAN-AMERICAN > 60; GLUCOSE,RANDOM 281 mg/dL (70-110); POTASSIUM 4.5 mmol/L (3.6-5.0); SODIUM 138 mmol/L (132-148); TOTAL PROTEIN 6.7 g/dL (5.8-8.3)
--- NOTE | 2017-07-14 07:54 | PN ---
PULMONARY STORMY DATE: 07/14/2017 SUBJECTIVE: The patient appears comfortable this morning. He is not short of breath at rest. PHYSICAL EXAMINATION: VITAL SIGNS: Temperature is 98.4, pulse 74, respirations 19, blood pressure 138/74. Oxygen saturation on nasal cannula is 98-99%. HEENT: Normocephalic, atraumatic. No JVD. There remains some swelling of his face and right neck area. CARDIOVASCULAR: Positive S1, S2. No S3 gallop. LUNGS: Bronchial breath sounds - right lung. Very minimal/less rhonchi. No wheezing. EXTREMITIES: No clubbing, cyanosis or edema. Calves are nontender to palpation. GI: Abdomen is soft, nontender and nondistended. Bowel sounds are positive. SKIN: No acute rash. NEUROLOGIC: Exam limited at the present time. IMPRESSION: 1. Acute bronchitis. 2. Advanced chronic obstructive pulmonary disease. 3. 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 4. 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 5. Anemia. 6. Rapid atrial fibrillation/atrial flutter. PLAN: The patient appears much more comfortable this morning. He is not short of breath at rest. He is coughing much less. He does state to feeling much better overall. On physical exam, there is a significant decrease in his bronchospasm. In addition, the oxygen saturation on nasal cannula is now 98-99%. I will continue the current nebulizer treatments and current intravenous steroids (decreased yesterday) for now. Inputs by Oncology and Cardiology are noted. Clinical status of the patient is significantly improved - compared to the initial presentation. However, again, the future status/prognosis for this patient, unfortunately, is very poor. I will discuss the above with Dr. Ram this morning. Kenny Vaca MD [email or web address]
--- NOTE | 2017-07-14 08:11 | PN ---
PULMONARY NOTE DATE: 07/12/2017 SUBJECTIVE: The patient appears more comfortable this morning. He is much less short of breath. PHYSICAL EXAMINATION: VITAL SIGNS: Temperature is 97.8, pulse 124, respirations 18/20, blood pressure 131/79. Oxygen saturation on room air is 98%. HEENT: Normocephalic, atraumatic. No JVD. There remains some swelling of his face and right neck area. CARDIOVASCULAR: Positive S1, S2. No S3. LUNGS: Bronchial breath sounds - right lung. Less rhonchi. Less wheezing. EXTREMITIES: No clubbing, cyanosis or edema. Calves are nontender to palpation. GI: Abdomen is soft, nontender and nondistended. Bowel sounds are positive. SKIN: No acute rash. NEUROLOGIC: Exam limited at the present time. IMPRESSION 1. Acute bronchitis. 2. Advanced chronic obstructive pulmonary disease. 3. 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 4. 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 5. Atrial fibrillation/atrial flutter. 6. Anemia. PLAN: The patient appears much more comfortable this morning. He is much less short of breath. He is also coughing less. He does state to feeling a little better overall. On physical exam, there is less bronchospasm noted. In addition, there is no significant alveolar-arterial gradient. Oxygen saturation on room air is 98%. I will continue the current nebulizer treatments and current intravenous steroids for now. Input by Cardiology (Dr. Bullard) is noted. The patient is currently on a Cardizem drip. The patient did have a CT scan of the neck and chest done yesterday. Official results are pending. Again, I did discuss the case with the daughter at length yesterday. Her main concern is that her father be kept comfortable. She understands fully the nature of his terminal disease. Clinically, he is improved - compared to yesterday. However, again, the overall status/prognosis for this patient remains very poor. All are aware. I will discuss the above with the attending physician. Kenny Vaca MD RUBIA
[2017-07-14] MEDS: Budesonide 0.5 mg/2 ml Inhal Susp UD IH SCH ×2 (08:12→19:59)
[2017-07-14] MEDS: cefTRIAXone 1 gm 1 GM/100 ML BAG IVPB SCH (10:10)
[2017-07-14] MEDS: MethylPREDNISolone 40 mg Vial IVP SCH ×2 (10:10→21:42)
[2017-07-14] MEDS: Azithromycin 500MG/NS 250ml 500 MG/250 ML BAG IVPB SCH (11:35)
--- NOTE | 2017-07-14 12:53 | PN ---
DATE: REASON FOR CONSULTATION: Atrial fibrillation and flutter, pericardial effusion, and recurrent metastatic lung CA. SUBJECTIVE: The patient denies any chest pain. Mild short of breath. Neck vein engorged. PHYSICAL EXAMINATION: VITAL SIGNS: Temperature afebrile, heart rate 74, and blood pressure 138/74. HEENT: PERRLA, intact. NECK: Supple. No carotid bruits. No thyromegaly. CHEST: Clear to auscultation. HEART: S1 and S2 regular. ABDOMEN: Soft. EXTREMITIES: Clubbing and cyanosis negative. LABORATORY DATA: Blood workup as follows: WBC 18.5, hemoglobin 11.6, hematocrit 38.4, and platelet count 331. Chemistry shows sodium 130, potassium 4.5, chloride 97, carbon dioxide 31, anion gap of 15, BUN of 27, and creatinine 0.7. IMPRESSION: A 67-year-old male with a past medical history significant for recurrent lung carcinoma admitted with shortness of breath, pericardial effusion, pleural effusion, anterior moderate pericardial effusion, large portion of pericardial effusion with no sign of tamponade, chronic bronchitis, possible superior vena cava syndrome, possible thoracic outlet obstruction, atrial fibrillation is rapid now is rate controlled. RECOMMENDATIONS: Discussed with Dr. Ram twice. He called me twice over the weekend about the plan since the patient has no signs of the tamponade, but definitely needs pericardial window. Discussed about the patient's prognosis is survival is more than 6 months or year, consider pericardial window, though the patient again is not in tamponade, no sense of urgency, but since it is large portion of pericardial has been anterior, moderate pericardial effusion and if survival is more than a year consider pericardial window. Also he mentioned that he is going to ask doctors to make possibly a stent in superior vena cava. We will discontinue Cardizem , though the patient is atrial fibrillation/flutter was not a candidate for anticoagulation because the patient's large pericardial effusion. It can worsen and the effusion can change to tamponade. We will discuss with Dr. Ram. We will discuss with the family. Overall, the patient's condition is critical, long-term prognosis is extremely poor. We will give a stat dose of Cardizem and discontinue Cardizem intravenous one hour after the first dose. Chante Bullard MD
--- NOTE | 2017-07-14 13:10 | CT ---
PROCEDURE: CT HEAD WITHOUT CONTRAST. HISTORY: dizziness/syncope COMPARISON: None available. TECHNIQUE: Axial computed tomography images were obtained through the head/brain without intravenous contrast. Radiation dose: Total exam DLP = 823 mGy-cm. This CT exam was performed using one or more of the following dose reduction techniques: Automated exposure control, adjustment of the mA and/or kV according to patient size, and/or use of iterative reconstruction technique. FINDINGS: HEMORRHAGE: No intracranial hemorrhage. BRAIN: No mass effect or edema. Chronic microvascular changes are seen in the periventricular white matter. VENTRICLES: Unremarkable. No hydrocephalus. CALVARIUM: Unremarkable. PARANASAL SINUSES: Unremarkable as visualized. No significant inflammatory changes. MASTOID AIR CELLS: Unremarkable as visualized. No inflammatory changes. OTHER FINDINGS: None. IMPRESSION: Chronic microvascular changes in the periventricular white matter. No acute intracranial findings
--- NOTE | 2017-07-14 14:47 | CP.PCM.CON ---
<Sandy Gonzalez - Last Filed: 07/14/17 16:08> History of Present Illness - History of Present Illness History of Present Illness: Neurology Consult Note for Travis Finney PGY2 Reason for consult: Dizziness/syncope This is a 67Y Tog[place] M with PMH metastatic non-small cell lung ca s/p resection and chemo/radiation, COPD, a.flutter, HTN, GERD and medication non- compliance who was admitted for progressive cough and associated syncope. 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 Patient reports that when he gets into coughing fits he ends up passing out. This has happened several times in the past. He once passed out and hit his head after a coughing fit. Patient denies having any vision changes, weakness, numbness/tingling, CP, SOB, fever or chills. Patient has been having increased coughing since he had his thoracotomy to remove the cancer. Patient has noted to have increased face and neck swelling. Recent CT of chest showed possible SVC syndrome with collapsing of SVC with new onset pericardial effusion and increasing R pleural effusion. Head CT was noted to be negative for acute pathology. 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 PSH: R pneumonectomy Home meds: As per DEC All: NKDA SH: + tobacco abuse, denies EtOH or drug use Review of Systems - Review of Systems All systems: reviewed and no additional remarkable complaints except Review of Systems: + cough and syncope Past Patient History - Infectious Disease Hx of Infectious Diseases: None - Past Social History Smoking Status: Light Smoker < 10 Cigarettes Daily Alcohol: None Drugs: Denies Home Situation {Lives}: With Family - CARDIAC Hx Hypertension: Yes Hx Pacemaker: No Hx Peripheral Edema: Yes (ble +2 pitting) - PULMONARY Hx Respiratory Disorders: Yes (lung ca dx 2011 non small cell right) Hx Chronic Obstructive Pulmonary Disease (COPD): Yes Other/Comment: Stage 4 lung CA - NEUROLOGICAL Hx Paralysis: No - HEENT Hx HEENT Problems: Yes (eyeglasses) - RENAL Hx Chronic Kidney Disease: No - ENDOCRINE/METABOLIC Hx Endocrine Disorders: No - HEMATOLOGICAL/ONCOLOGICAL Hx Cancer: Yes (right sided lung) Hx Chemotherapy: Yes (2012) Other/Comment: non small lung ca r upper lobe. 10/08 lung removal 2011 - INTEGUMENTARY Hx Dermatological Problems: No - MUSCULOSKELETAL/RHEUMATOLOGICAL Hx Falls: No (past) - GASTROINTESTINAL Hx Gastrointestinal Disorders: No - GENITOURINARY/GYNECOLOGICAL Hx Genitourinary Disorders: No - PSYCHIATRIC Hx Substance Use: No - SURGICAL HISTORY Other/Comment: 08/2012 tumor removal from lung /3 removed. 2000 hernia, rcw pac removed today 07/11/17 - ANESTHESIA Hx Anesthesia Reactions: No Meds Allergies/Adverse Reactions: Allergies Allergy/AdvReac Type Severity Reaction Status Date / Time No Known Allergies Allergy Verified 07/11/17 10:01 - Medications Medications: Current Medications Acetaminophen (Tylenol 325mg Tab) 650 mg PO Q4 PRN PRN Reason: Pain, Mild (1-3) Budesonide (Pulmicort Respules) 0.5 mg IH [id number] [facility] Last Admin: 07/14/17 08:12 Dose: 0.5 mg Codeine Sulfate (Codeine) 30 mg PO QID PRN PRN Reason: Cough Last Admin: 07/13/17 21:53 Dose: 30 mg Diltiazem HCl (Cardizem) 30 mg PO QID [facility] Ceftriaxone Sodium (Rocephin 1 Gram Ivpb) 1 gm in 100 mls @ 100 mls/hr IVPB DAILY [facility] PRN Reason: Protocol Last Admin: 07/14/17 10:10 Dose: 100 mls/hr Azithromycin (Zithromax 500mg In Ns) 500 mg in 250 mls @ 167 mls/hr IVPB DAILY [facility] PRN Reason: Protocol Last Admin: 07/14/17 11:35 Dose: 167 mls/hr Levalbuterol HCl (Xopenex) 0.63 mg IH [id number] [facility] Last Admin: 07/14/17 13:41 Dose: 0.63 mg Levalbuterol HCl (Xopenex) 0.63 mg IH Q2 PRN PRN Reason: Shortness of Breath Last Admin: 07/12/17 18:50 Dose: 0.63 mg Methylprednisolone (Solu-Medrol) 40 mg IVP Q12 [facility] Last Admin: 07/14/17 10:10 Dose: 40 mg Pantoprazole Sodium (Protonix Ec Tab) 20 mg PO 0600 [facility] Last Admin: 07/14/17 05:44 Dose: 20 mg Pregabalin (Lyrica) 25 mg PO Q12 [facility] Last Admin: 07/14/17 10:11 Dose: 25 mg Physical Exam - Constitutional Appears: Chronically Ill - Head Exam Head Exam: ATRAUMATIC, NORMOCEPHALIC Additional comments: Slight purple color to skin on face - Eye Exam Eye Exam: Normal appearance, PERRL Pupil Exam: NORMAL ACCOMODATION, PERRL - ENT Exam ENT Exam: Mucous Membranes Moist - Respiratory Exam Respiratory Exam: Clear to Auscultation Bilateral, NORMAL BREATHING PATTERN. absent: Rales, Rhonchi, Wheezes - Cardiovascular Exam Cardiovascular Exam: Irregular Rhythm, +S1, +S2. absent: Gallop, Rubs, Systolic Murmur - GI/Abdominal Exam GI & Abdominal Exam: Normal Bowel Sounds, Soft. absent: Rebound, Rigid, Tenderness - Extremities Exam Extremities exam: Positive for: pedal edema (+ 1 bilaterally ) - Neurological Exam Neurological exam: Alert, CN II-XII Intact, Oriented x3 - Psychiatric Exam Psychiatric exam: Normal Affect, Normal Mood - Skin Skin Exam: Dry, Intact, Normal Color, Warm Results - Vital Signs Recent Vital Signs: Last Vital Signs Temp 98.3 F 07/14/17 12:00 Pulse 134 H 07/14/17 14:00 Resp 20 07/14/17 12:00 BP 168/97 H 07/14/17 12:28 Pulse Ox 98 07/14/17 06:00 - Labs Result Diagrams: 07/14/17 06:00 07/14/17 06:00 Labs: Laboratory Results - last 24 hr 07/14/17 07/14/17 06:00 06:00 WBC 18.4 H RBC 4.02 Hgb 11.6 L Hct 38.4 L MCV 95.5 MCH 28.9 MCHC 30.2 L RDW 14.3 Plt Count 331 MPV 9.1 Gran % 95.9 H Lymph % (Auto) 2.0 L [place] % (Auto) 2.1 Eos % (Auto) 0.0 L Baso % (Auto) 0.0 Gran # 17.60 H Lymph # 0.4 L [place] # 0.4 Eos # 0.0 Baso # 0.00 Sodium 138 Potassium 4.5 Chloride 97 L Carbon Dioxide 31 Anion Gap 15 BUN 27 H Creatinine 0.7 L Est GFR ( Amer) > 60 Est GFR (Non-Af Amer) > 60 Random Glucose 281 H Calcium 9.1 Total Bilirubin 0.4 AST 54 ALT 58 H Alkaline Phosphatase 113 Total Protein 6.7 Albumin 3.5 Globulin 3.2 Albumin/Globulin Ratio 1.1 Assessment & Plan - Assessment and Plan (Free Text) Assessment: This is a 67Y [place]og[place] M with PMH metastatic non-small cell lung ca s/p resection and chemo/radiation, COPD, a.flutter, HTN, GERD and medication non- compliance who was admitted for progressive cough and associated syncope. This can be secondary to SVC syndrome versus vasovagal episodes associated with coughing. Plan: - IR evaluation of SVC - Continue cardiac work up to rule out arrhythmia causing syncopal episode - Avoid sudden drops in BP- Maintain SBP in 130s - Physical therapy - Further treatment as per heme/onc No further neurological work up at this time. Thank you for this consultation. Will sign off. Please re-consult if needed. Case seen, discussed and reviewed with Dr. Leroy. Travis Gonzalez PGY2 - Date & Time Date: 07/14/17 Time: 14:49 <Cole Leroy - Last Filed: 07/14/17 16:26> Meds - Medications Medications: Current Medications Acetaminophen (Tylenol 325mg Tab) 650 mg PO Q4 PRN PRN Reason: Pain, Mild (1-3) Budesonide (Pulmicort Respules) 0.5 mg IH [id number] [facility] Last Admin: 07/14/17 08:12 Dose: 0.5 mg Codeine Sulfate (Codeine) 30 mg PO QID PRN PRN Reason: Cough Last Admin: 07/13/17 21:53 Dose: 30 mg Diltiazem HCl (Cardizem) 30 mg PO QID [facility] Last Admin: 07/14/17 15:02 Dose: 30 mg Ceftriaxone Sodium (Rocephin 1 Gram Ivpb) 1 gm in 100 mls @ 100 mls/hr IVPB DAILY [facility] PRN Reason: Protocol Last Admin: 07/14/17 10:10 Dose: 100 mls/hr Azithromycin (Zithromax 500mg In Ns) 500 mg in 250 mls @ 167 mls/hr IVPB DAILY [facility] PRN Reason: Protocol Last Admin: 07/14/17 11:35 Dose: 167 mls/hr Levalbuterol HCl (Xopenex) 0.63 mg IH [id number] [facility] Last Admin: 07/14/17 13:41 Dose: 0.63 mg Levalbuterol HCl (Xopenex) 0.63 mg IH Q2 PRN PRN Reason: Shortness of Breath Last Admin: 07/12/17 18:50 Dose: 0.63 mg Methylprednisolone (Solu-Medrol) 40 mg IVP Q12 [facility] Last Admin: 07/14/17 10:10 Dose: 40 mg Pantoprazole Sodium (Protonix Ec Tab) 20 mg PO 0600 [facility] Last Admin: 07/14/17 05:44 Dose: 20 mg Pregabalin (Lyrica) 25 mg PO Q12 [facility] Last Admin: 07/14/17 10:11 Dose: 25 mg Results - Vital Signs Recent Vital Signs: Last Vital Signs Temp 98.3 F 07/14/17 12:00 Pulse 136 H 07/14/17 15:02 Resp 20 07/14/17 12:00 BP 135/89 07/14/17 15:02 Pulse Ox 98 07/14/17 06:00 - Labs Result Diagrams: 07/14/17 06:00 07/14/17 06:00 Labs: Laboratory Results - last 24 hr 07/14/17 07/14/17 06:00 06:00 WBC 18.4 H RBC 4.02 Hgb 11.6 L Hct 38.4 L MCV 95.5 MCH 28.9 MCHC 30.2 L RDW 14.3 Plt Count 331 MPV 9.1 Gran % 95.9 H Lymph % (Auto) 2.0 L [place] % (Auto) 2.1 Eos % (Auto) 0.0 L Baso % (Auto) 0.0 Gran # 17.60 H Lymph # 0.4 L [place] # 0.4 Eos # 0.0 Baso # 0.00 Sodium 138 Potassium 4.5 Chloride 97 L Carbon Dioxide 31 Anion Gap 15 BUN 27 H Creatinine 0.7 L Est GFR ( Amer) > 60 Est GFR (Non-Af Amer) > 60 Random Glucose 281 H Calcium 9.1 Total Bilirubin 0.4 AST 54 ALT 58 H Alkaline Phosphatase 113 Total Protein 6.7 Albumin 3.5 Globulin 3.2 Albumin/Globulin Ratio 1.1 Attending/Attestation - Attestation I have personally seen and examined this patient.: Yes I have fully participated in the care of the patient.: Yes I have reviewed all pertinent clinical information: Yes
--- NOTE | 2017-07-14 15:40 | CP.PCM.PN ---
<Tutu Rondon - Last Filed: 07/14/17 21:21> Subjective - Date & Time of Evaluation Date of Evaluation: 07/14/17 Time of Evaluation: 15:37 - Subjective Subjective: Progress note for Dr. Ram's service Patient seen and examined at bedside this morning. He endorsed feeling unwell from the constant coughing and discussed that he feels his face/head swelling when he coughs. He reported 2 prior episodes of passing out from coughing heavily. Otherwise, he denied chest pain, palpitations, abdominal pain, nausea, vomiting. No overnight events or new complaints were reported. Objective - Vital Signs/Intake and Output Vital Signs (last 24 hours): Temp Pulse Resp BP Pulse Ox 98.3 F 136 H 20 135/89 98 07/14/17 12:00 07/14/17 15:02 07/14/17 12:00 07/14/17 15:02 07/14/17 06:00 Intake and Output: 07/14/17 07/14/17 06:59 18:59 Intake Total 1217 Output Total 3 Balance 1214 - Medications Medications: Current Medications Acetaminophen (Tylenol 325mg Tab) 650 mg PO Q4 PRN PRN Reason: Pain, Mild (1-3) Budesonide (Pulmicort Respules) 0.5 mg IH [id number] [facility] Last Admin: 07/14/17 08:12 Dose: 0.5 mg Codeine Sulfate (Codeine) 30 mg PO QID PRN PRN Reason: Cough Last Admin: 07/13/17 21:53 Dose: 30 mg Diltiazem HCl (Cardizem) 30 mg PO QID [facility] Last Admin: 07/14/17 15:02 Dose: 30 mg Ceftriaxone Sodium (Rocephin 1 Gram Ivpb) 1 gm in 100 mls @ 100 mls/hr IVPB DAILY [facility] PRN Reason: Protocol Last Admin: 07/14/17 10:10 Dose: 100 mls/hr Azithromycin (Zithromax 500mg In Ns) 500 mg in 250 mls @ 167 mls/hr IVPB DAILY [facility] PRN Reason: Protocol Last Admin: 07/14/17 11:35 Dose: 167 mls/hr Levalbuterol HCl (Xopenex) 0.63 mg IH [id number] [facility] Last Admin: 07/14/17 13:41 Dose: 0.63 mg Levalbuterol HCl (Xopenex) 0.63 mg IH Q2 PRN PRN Reason: Shortness of Breath Last Admin: 07/12/17 18:50 Dose: 0.63 mg Methylprednisolone (Solu-Medrol) 40 mg IVP Q12 [facility] Last Admin: 07/14/17 10:10 Dose: 40 mg Pantoprazole Sodium (Protonix Ec Tab) 20 mg PO 0600 [facility] Last Admin: 07/14/17 05:44 Dose: 20 mg Pregabalin (Lyrica) 25 mg PO Q12 [facility] Last Admin: 07/14/17 10:11 Dose: 25 mg - Labs Labs: 07/14/17 06:00 07/14/17 06:00 PT 14.0 Seconds (9.9-11.8) H 07/11/17 11:00 INR 1.30 (0.93-1.08) H 07/11/17 11:00 APTT 77.9 Seconds (23.7-30.8) H* 07/11/17 11:00 - Constitutional Appears: No Acute Distress, Chronically Ill - Head Exam Head Exam: ATRAUMATIC, NORMOCEPHALIC - Eye Exam Eye Exam: EOMI, PERRL - ENT Exam ENT Exam: Mucous Membranes Moist - Neck Exam Additional comments: neck/face swelling upon coughing episodes - Respiratory Exam Respiratory Exam: Decreased Breath Sounds. absent: Rales, Rhonchi, Wheezes - Cardiovascular Exam Cardiovascular Exam: +S1, +S2. absent: Gallop, Rubs, Murmur - GI/Abdominal Exam GI & Abdominal Exam: Soft. absent: Distended, Firm, Guarding, Rigid, Tenderness , Rebound - Extremities Exam Extremities Exam: Pedal Edema (1-2+ pedal edema). absent: Calf Tenderness, Tenderness - Neurological Exam Neurological Exam: Alert, Awake, CN II-XII Intact (grossly intact), Oriented x3 - Psychiatric Exam Psychiatric exam: Normal Affect, Normal Mood - Skin Skin Exam: Dry, Intact, Normal Color, Warm Assessment and Plan - Assessment and Plan (Free Text) Plan: 67yo male with history of stage IV metastatic non-small cell lung carcinoma s/p resection and chemo/radiation, COPD, atrial flutter, hypertension and GERD admitted for progressive cough with associated syncope 1. Coughing/Syncope -Will request evaluation by IR for early developing SVC syndrome and possible stenting 2. Stage IV non-small cell lung carcinoma -Patient is s/p resection and chemoradiation -Progressively worsening carcinoma of the right lung -Currently being treated with Keytruda given the extensiveness of his malignancy 3. Pericardial effusion -Cardiology consulted; recommendations appreciated; No clinical symptoms of cardiac tamponade at this time however given the extent of his pericardial effusion, he may need either a pericardial window or pericardiocentesis. 4. Atrial flutter -Telemetry monitoring -Continue with cardizem as per cardiology recommendations 5. COPD -Continue with bronchodilators and steroid taper as per pulmonary recommendations 6. Hypertension 7. GERD -Continue protonix 8. Disposition -Given all of these complex medical issues, the prognosis for this patient is guarded. Patient seen and case discussed with attending, Dr. Ram <Elaine Ram P - Last Filed: 07/19/17 10:48> Objective - Vital Signs/Intake and Output Vital Signs (last 24 hours): Temp Pulse Resp BP Pulse Ox 98.8 F 91 H 20 138/71 96 07/19/17 06:00 07/19/17 08:49 07/19/17 06:00 07/19/17 08:49 07/19/17 06:00 Intake and Output: 07/19/17 07/19/17 06:59 18:59 Intake Total 640 Output Total 1950 Balance -1310 - Medications Medications: Current Medications Acetaminophen (Tylenol 325mg Tab) 650 mg PO Q4 PRN PRN Reason: Pain, Mild (1-3) Last Admin: 07/16/17 18:00 Dose: 650 mg Azithromycin (Zithromax) 500 mg PO DAILY [facility] PRN Reason: Protocol Stop: 07/23/17 10:01 Last Admin: 07/18/17 10:46 Dose: 500 mg Budesonide (Pulmicort Respules) 0.5 mg IH [id number] [facility] Last Admin: 07/19/17 07:48 Dose: Not Given Diphenhydramine HCl (Benadryl) 50 mg IVP HS PRN PRN Reason: Insomnia Last Admin: 07/16/17 21:51 Dose: 50 mg diltiaZEM IVPB 100mg in NS (Cardizem 100mg In Ns) 100 mls @ 10 mls/hr IV .Q10H PRN; Protocol; 10 MG/HR PRN Reason: TITRATE PER MD ORDER Last Admin: 07/19/17 04:17 Dose: 10 mg/hr, 10 mls/hr Levalbuterol HCl (Xopenex) 0.63 mg IH [id number] [facility] Last Admin: 07/19/17 07:48 Dose: Not Given Levalbuterol HCl (Xopenex) 0.63 mg IH Q2 PRN PRN Reason: Shortness of Breath Last Admin: 07/12/17 18:50 Dose: 0.63 mg Methylprednisolone (Solu-Medrol) 30 mg IVP Q12 [facility] Last Admin: 07/18/17 22:06 Dose: 30 mg Metoprolol Tartrate (Lopressor) 50 mg PO BRKDIN [facility] Last Admin: 07/19/17 08:49 Dose: 50 mg Pantoprazole Sodium (Protonix Ec Tab) 20 mg PO 0600 [facility] Last Admin: 07/19/17 06:05 Dose: 20 mg Pregabalin (Lyrica) 25 mg PO Q12 [facility] Last Admin: 07/18/17 22:06 Dose: 25 mg - Labs Labs: 07/18/17 09:00 07/18/17 09:00 PT 13.0 Seconds (9.9-11.8) H 07/16/17 13:00 INR 1.20 (0.93-1.08) H 07/16/17 13:00 APTT 23.7 Seconds (23.7-30.8) 07/16/17 13:00 Attending/Attestation - Attestation I have personally seen and examined this patient.: Yes I have fully participated in the care of the patient.: Yes I have reviewed all pertinent clinical information, including history, physical exam and plan: Yes
--- NOTE | 2017-07-14 17:57 | CP.PCM.PN ---
Subjective - Date & Time of Evaluation Date of Evaluation: 07/14/17 Time of Evaluation: 10:00 - Subjective Subjective: Still with shortness of breath and cough, no fevers overnight. Objective - Vital Signs/Intake and Output Vital Signs (last 24 hours): Temp Pulse Resp BP Pulse Ox 98.4 F 74 19 138/74 98 07/14/17 06:00 07/14/17 06:00 07/14/17 06:00 07/14/17 06:00 07/14/17 06:00 Intake and Output: 07/14/17 07/14/17 06:59 18:59 Intake Total 1217 Output Total 3 Balance 1214 - Medications Medications: Current Medications Acetaminophen (Tylenol 325mg Tab) 650 mg PO Q4 PRN PRN Reason: Pain, Mild (1-3) Budesonide (Pulmicort Respules) 0.5 mg IH [id number] [facility] Last Admin: 07/14/17 08:12 Dose: 0.5 mg Codeine Sulfate (Codeine) 30 mg PO QID PRN PRN Reason: Cough Last Admin: 07/13/17 21:53 Dose: 30 mg diltiaZEM IVPB 100mg in NS (Cardizem 100mg In Ns) 100 mls @ 10 mls/hr IV .Q10H PRN; Protocol; 10 MG/HR PRN Reason: TITRATE PER MD ORDER Last Admin: 07/14/17 04:10 Dose: 10 mg/hr, 10 mls/hr Ceftriaxone Sodium (Rocephin 1 Gram Ivpb) 1 gm in 100 mls @ 100 mls/hr IVPB DAILY [facility] PRN Reason: Protocol Last Admin: 07/13/17 09:48 Dose: 100 mls/hr Azithromycin (Zithromax 500mg In Ns) 500 mg in 250 mls @ 167 mls/hr IVPB DAILY [facility] PRN Reason: Protocol Last Admin: 07/13/17 09:50 Dose: 167 mls/hr Levalbuterol HCl (Xopenex) 0.63 mg IH [id number] [facility] Last Admin: 07/14/17 08:12 Dose: 0.63 mg Levalbuterol HCl (Xopenex) 0.63 mg IH Q2 PRN PRN Reason: Shortness of Breath Last Admin: 07/12/17 18:50 Dose: 0.63 mg Methylprednisolone (Solu-Medrol) 40 mg IVP Q12 [facility] Last Admin: 07/13/17 21:53 Dose: 40 mg Pantoprazole Sodium (Protonix Ec Tab) 20 mg PO 0600 [facility] Last Admin: 07/14/17 05:44 Dose: 20 mg Pregabalin (Lyrica) 25 mg PO Q12 [facility] Last Admin: 07/13/17 21:53 Dose: 25 mg - Labs Labs: 07/14/17 06:00 07/14/17 06:00 PT 14.0 Seconds (9.9-11.8) H 07/11/17 11:00 INR 1.30 (0.93-1.08) H 07/11/17 11:00 APTT 77.9 Seconds (23.7-30.8) H* 07/11/17 11:00 - Constitutional Appears: Non-toxic, No Acute Distress - Head Exam Head Exam: NORMAL INSPECTION - Neck Exam Neck Exam: absent: Meningismus - Respiratory Exam Respiratory Exam: Decreased Breath Sounds - Cardiovascular Exam Cardiovascular Exam: +S1, +S2 - GI/Abdominal Exam GI & Abdominal Exam: Soft. absent: Tenderness Assessment and Plan - Assessment and Plan (Free Text) Plan: Assessment R/O community-acquired pneumonia on the right side on top of acute bronchitis history of right sided healthcare-associated pneumonia non-small cell lung cancer stage 4 S/P right pneumonectomy HTN obesity with BMI 34 Plan blood cx are negative, PCT is only 0.08 - will continue Zithromax day 2 and d/c Rocephin; reviewed CT chest reviewed Pulmonary evaluation and recommendations will continue to monitor clinically overall prognosis is poor
[2017-07-15] MEDS: Levalbuterol 0.63 MG/3 ML Inhal Soln UD IH SCH ×4 (03:01→20:55)
[2017-07-15] MEDS: Pantoprazole 20 mg EC Tab PO SCH (05:24)
--- NOTE | 2017-07-15 06:54 | CP.PCM.PN ---
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 and afib ,pt, hr on monitor is 130-134. bp 166/78.pt apears mildly sob. Objective - Vital Signs/Intake and Output Vital Signs (last 24 hours): Temp Pulse Resp BP Pulse Ox 97.7 F 134 H 22 139/94 H 96 07/15/17 06:00 07/15/17 06:00 07/15/17 06:00 07/15/17 06:00 07/15/17 06:00 Intake and Output: 07/14/17 07/15/17 18:59 06:59 Intake Total 325 240 Balance 325 240 - Medications Medications: Current Medications Acetaminophen (Tylenol 325mg Tab) 650 mg PO Q4 PRN PRN Reason: Pain, Mild (1-3) Budesonide (Pulmicort Respules) 0.5 mg IH [id number] [facility] Last Admin: 07/14/17 19:59 Dose: 0.5 mg Codeine Sulfate (Codeine) 30 mg PO QID PRN PRN Reason: Cough Last Admin: 07/15/17 01:46 Dose: 30 mg Diltiazem HCl (Cardizem) 30 mg PO QID [facility] Last Admin: 07/14/17 21:42 Dose: 30 mg Azithromycin (Zithromax 500mg In Ns) 500 mg in 250 mls @ 167 mls/hr IVPB DAILY [facility] PRN Reason: Protocol Last Admin: 07/14/17 11:35 Dose: 167 mls/hr Levalbuterol HCl (Xopenex) 0.63 mg IH [id number] [facility] Last Admin: 07/15/17 03:01 Dose: 0.63 mg Levalbuterol HCl (Xopenex) 0.63 mg IH Q2 PRN PRN Reason: Shortness of Breath Last Admin: 07/12/17 18:50 Dose: 0.63 mg Methylprednisolone (Solu-Medrol) 40 mg IVP Q12 [facility] Last Admin: 07/14/17 21:42 Dose: 40 mg Pantoprazole Sodium (Protonix Ec Tab) 20 mg PO 0600 [facility] Last Admin: 07/15/17 05:24 Dose: 20 mg Pregabalin (Lyrica) 25 mg PO Q12 [facility] Last Admin: 07/14/17 21:42 Dose: 25 mg - Labs Labs: 07/14/17 06:00 07/14/17 06:00 PT 14.0 Seconds (9.9-11.8) H 07/11/17 11:00 INR 1.30 (0.93-1.08) H 07/11/17 11:00 APTT 77.9 Seconds (23.7-30.8) H* 07/11/17 11:00 - Constitutional Appears: Other - Head Exam Head Exam: NORMOCEPHALIC - Eye Exam Eye Exam: Normal appearance - ENT Exam ENT Exam: Mucous Membranes Moist - Neck Exam Neck Exam: Full ROM - Respiratory Exam Respiratory Exam: Decreased Breath Sounds - Cardiovascular Exam Cardiovascular Exam: Tachycardia, +S1, +S2 - GI/Abdominal Exam GI & Abdominal Exam: Soft - Rectal Exam Rectal Exam: Deferred - Extremities Exam Extremities Exam: Full ROM - Neurological Exam Neurological Exam: Alert, CN II-XII Intact, Oriented x3 - Skin Skin Exam: Dry, Warm Assessment and Plan - Assessment and Plan (Free Text) Assessment: -fib with rapid vent rate . hx of copd. lung ca stage 4 s/p chemo radiation. svc. Plan: pt was given cardiazem 10mg bolus x1 improved. to 106.
[2017-07-15] MEDS: Budesonide 0.5 mg/2 ml Inhal Susp UD IH SCH ×2 (07:36→20:55)
--- NOTE | 2017-07-15 08:20 | PN ---
PULMONARY NOTE DATE: 07/15/2017 SUBJECTIVE: The patient appears comfortable at rest. He is not short of breath. PHYSICAL EXAMINATION: VITAL SIGNS: Temperature is 97.7, pulse on the monitor is 117, respiratory rate 18/20, blood pressure 139/94. Oxygen saturation on nasal cannula is 97%. HEENT: Normocephalic, atraumatic. No JVD. There remains some swelling of his face and right neck area. CARDIOVASCULAR: Positive S1, S2. No S3 gallop. LUNGS: Bronchial breath sounds - right lung. Minimal/less rhonchi. No wheezing. EXTREMITIES: No clubbing, cyanosis or edema. Calves are nontender to palpation. GI: Abdomen is soft, nontender and nondistended. Bowel sounds are positive. SKIN: No acute rash. NEUROLOGIC: Exam limited at the present time. IMPRESSION: 1. Acute bronchitis. 2. Advanced chronic obstructive pulmonary disease. 3. 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 4. 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 5. Anemia. 6. Rapid atrial fibrillation/atrial flutter. PLAN: The patient appears comfortable this morning. He is not short of breath at rest. He states he is feeling much better overall. I did discuss the case with the nursing staff at length. The nurse does confirm that the patient is coughing much less. However, he has had several runs of rapid atrial fibrillation during the last shift. He is currently on Cardizem. Input by Cardiology (Dr. Bullard) is noted. On physical exam, there is significantly less bronchospasm. I will continue the current nebulizer treatments and low-dose intravenous steroids for now. Inputs by Infectious Disease and Oncology are noted. Clinical status of the patient is certainly improved - compared to the initial presentation. However, again, the future status/prognosis for this patient remains very poor. All are aware. I will discuss the above with the attending physician. Kenny Vaca MD MTDD
--- NOTE | 2017-07-15 09:09 | CP.PCM.PN ---
<Sandy Gonzalez - Last Filed: 07/15/17 09:05> Subjective - Date & Time of Evaluation Date of Evaluation: 07/15/17 Time of Evaluation: 09:05 - Subjective Subjective: Neurology Progress Note for Travis Finney PGY2 Patient seen and examined at bedside. As per nursing, patient had a bout of a.fib and was given Cardizem bolus. He was asymptomatic at the time. Patient was evaluated with [place] forensic science technician at bedside. Patient reports he has noticed his weight has been increasing the past few days. He also has SOB with exertion. He denies having CP, n/v/d, numbness/tingling, fever/chills or pain. He reports that he would like to go home and relax instead of being in the hospital. Objective - Vital Signs/Intake and Output Vital Signs (last 24 hours): Temp Pulse Resp BP Pulse Ox 97.7 F 134 H 22 139/94 H 96 07/15/17 06:00 07/15/17 06:47 07/15/17 06:00 07/15/17 06:47 07/15/17 06:00 Intake and Output: 07/15/17 07/15/17 06:59 18:59 Intake Total 240 Balance 240 - Medications Medications: Current Medications Acetaminophen (Tylenol 325mg Tab) 650 mg PO Q4 PRN PRN Reason: Pain, Mild (1-3) Budesonide (Pulmicort Respules) 0.5 mg IH [id number] [facility] Last Admin: 07/15/17 07:36 Dose: 0.5 mg Codeine Sulfate (Codeine) 30 mg PO QID PRN PRN Reason: Cough Last Admin: 07/15/17 01:46 Dose: 30 mg Diltiazem HCl (Cardizem) 30 mg PO QID [facility] Last Admin: 07/14/17 21:42 Dose: 30 mg Azithromycin (Zithromax 500mg In Ns) 500 mg in 250 mls @ 167 mls/hr IVPB DAILY [facility] PRN Reason: Protocol Last Admin: 07/14/17 11:35 Dose: 167 mls/hr Levalbuterol HCl (Xopenex) 0.63 mg IH [id number] [facility] Last Admin: 07/15/17 07:36 Dose: 0.63 mg Levalbuterol HCl (Xopenex) 0.63 mg IH Q2 PRN PRN Reason: Shortness of Breath Last Admin: 07/12/17 18:50 Dose: 0.63 mg Methylprednisolone (Solu-Medrol) 40 mg IVP Q12 [facility] Last Admin: 07/14/17 21:42 Dose: 40 mg Pantoprazole Sodium (Protonix Ec Tab) 20 mg PO 0600 [facility] Last Admin: 07/15/17 05:24 Dose: 20 mg Pregabalin (Lyrica) 25 mg PO Q12 [facility] Last Admin: 07/14/17 21:42 Dose: 25 mg - Labs Labs: 07/14/17 06:00 07/14/17 06:00 PT 14.0 Seconds (9.9-11.8) H 07/11/17 11:00 INR 1.30 (0.93-1.08) H 07/11/17 11:00 APTT 77.9 Seconds (23.7-30.8) H* 07/11/17 11:00 - Constitutional Appears: No Acute Distress - Head Exam Head Exam: ATRAUMATIC, NORMOCEPHALIC Additional comments: Purple color to face somewhat swollen in appearance - Eye Exam Eye Exam: Normal appearance, PERRL Pupil Exam: NORMAL ACCOMODATION, PERRL - ENT Exam ENT Exam: Mucous Membranes Moist - Respiratory Exam Respiratory Exam: Rales, NORMAL BREATHING PATTERN. absent: Rhonchi, Wheezes - Cardiovascular Exam Cardiovascular Exam: REGULAR RHYTHM, +S1, +S2. absent: Gallop, Rubs, Murmur - GI/Abdominal Exam GI & Abdominal Exam: Soft, Normal Bowel Sounds. absent: Tenderness, Mass, Rebound - Extremities Exam Extremities Exam: Full ROM, Pedal Edema (+ 4 bilaterally ) - Neurological Exam Neurological Exam: Alert, Awake, CN II-XII Intact, Oriented x3 - Psychiatric Exam Psychiatric exam: Normal Affect, Normal Mood - Skin Skin Exam: Dry, Normal Color, Warm Assessment and Plan - Assessment and Plan (Free Text) Assessment: This is a 67Y [place] M with PMH metastatic non-small cell lung ca s/p resection and chemo/radiation, COPD, a.flutter, HTN, GERD and medication non- compliance who was admitted for progressive cough and associated syncope. Patient is noted to have pericardial effusion. Because of this, when patient coughs, his intrathoracic pressure decreases which stimulates the vagal nerve which causes the patient to have syncopal episodes. This is also exacerbated with compression of the SVC. As per cardiology, a pericardial window can temporarily relieve symptoms, but patient prognosis is poor. Plan: - Physical therapy - Avoid sudden drops in BP- Maintain SBP in 130s - Further treatment as per heme/onc Prognosis is poor. No further neurological work up at this time. Thank you for this consultation. Will sign off. Please re-consult if needed. Case seen, discussed and reviewed with Dr. Leroy. Travis Gonzalez PGY2 <Cole Leroy - Last Filed: 07/15/17 16:15> Objective - Vital Signs/Intake and Output Vital Signs (last 24 hours): Temp Pulse Resp BP Pulse Ox 98.6 F 135 H 20 150/98 H 96 07/15/17 12:00 07/15/17 14:33 07/15/17 12:00 07/15/17 15:53 07/15/17 06:00 Intake and Output: 07/15/17 07/15/17 06:59 18:59 Intake Total 240 850 Output Total 600 Balance 240 250 - Medications Medications: Current Medications Acetaminophen (Tylenol 325mg Tab) 650 mg PO Q4 PRN PRN Reason: Pain, Mild (1-3) Azithromycin (Zithromax) 500 mg PO DAILY [facility] PRN Reason: Protocol Stop: 07/23/17 10:01 Budesonide (Pulmicort Respules) 0.5 mg IH [id number] [facility] Last Admin: 07/15/17 07:36 Dose: 0.5 mg Codeine Sulfate (Codeine) 30 mg PO QID PRN PRN Reason: Cough Last Admin: 07/15/17 01:46 Dose: 30 mg Levalbuterol HCl (Xopenex) 0.63 mg IH [id number] [facility] Last Admin: 07/15/17 13:56 Dose: 0.63 mg Levalbuterol HCl (Xopenex) 0.63 mg IH Q2 PRN PRN Reason: Shortness of Breath Last Admin: 07/12/17 18:50 Dose: 0.63 mg Methylprednisolone (Solu-Medrol) 40 mg IVP Q12 [facility] Last Admin: 07/15/17 10:01 Dose: 40 mg Pantoprazole Sodium (Protonix Ec Tab) 20 mg PO 0600 [facility] Last Admin: 07/15/17 05:24 Dose: 20 mg Pregabalin (Lyrica) 25 mg PO Q12 [facility] Last Admin: 07/15/17 10:01 Dose: 25 mg Verapamil HCl (Calan Tab) 40 mg PO TID [facility] Last Admin: 07/15/17 14:33 Dose: 40 mg - Labs Labs: 07/14/17 06:00 07/14/17 06:00 PT 14.0 Seconds (9.9-11.8) H 07/11/17 11:00 INR 1.30 (0.93-1.08) H 07/11/17 11:00 APTT 77.9 Seconds (23.7-30.8) H* 07/11/17 11:00 Attending/Attestation - Attestation I have personally seen and examined this patient.: Yes I have fully participated in the care of the patient.: Yes I have reviewed all pertinent clinical information, including history, physical exam and plan: Yes
[2017-07-15] MEDS ORDERED: Digoxin 500 mcg/2ml (0.5 mg/2ml) Inj IVP ONE (09:37)
[2017-07-15] MEDS: Azithromycin 500MG/NS 250ml 500 MG/250 ML BAG IVPB SCH (10:01)
[2017-07-15] MEDS: MethylPREDNISolone 40 mg Vial IVP SCH ×2 (10:01→21:22)
[2017-07-15 10:02] VITALS: PULSE 135
--- NOTE | 2017-07-15 11:39 | CARD ---
APPROVED REPORT EKG Measurement Heart [id number] NE 140P [id number] <Conclusion> A flutter with 2:1 conduction Low voltage QRS Nonspecific ST and T wave abnormality Abnormal ECG
--- NOTE | 2017-07-15 14:17 | PN ---
DATE: 07/15/2017 SUBJECTIVE: The patient is in bed, in no acute distress, nontoxic. PHYSICAL EXAMINATION: VITAL SIGNS: Temperature is 98, blood pressure is 149/89, respiratory rate is 20 and heart rate is 92. HEENT: Unremarkable. NECK: Supple. LUNGS: Decreased breath sounds. HEART: Normal S1 and S2. ABDOMEN: Soft and nontender. LABORATORY DATA: Reveals a white count of 18,000, hemoglobin of 11 and platelets of 331. BUN of 27, creatinine of 0.7 and procalcitonin 0.8. Microbiology; his blood cultures are no growth. The patient had an EKG. QTc is 448. ASSESSMENT AND PLAN: This is a 67-year-old male with rule out community-acquired pneumonia on top of acute bronchitis, history of right-sided healthcare-associated pneumonia and non-small cell lung cancer, status post right pneumonectomy, hypertension, obesity with a body mass index of 34 with a negative blood cultures, negative procalcitonin and on day #3 of Zithromax. Review of orders reveals the patient's Zithromax to be active. The patient was seen early this morning and much improved. Review of the CAT scan of the chest, progressive consolidative changes and volume loss, completely occupied collapsed right lung and right pleural effusion. Unremarkable procalcitonin. Dr. Vaca's note is reviewed from today. The patient is also on methylprednisolone and Solu-Medrol at 40 mg q. 12 hours which may explain the persistent leukocytosis. We will change the IV Zithromax to p.o. Osvaldo Lyons MD
--- NOTE | 2017-07-15 15:10 | PN ---
REASON FOR CONSULTATION AND FOLLOWUP: Atrial fibrillation/flutter, pericardial effusion, recurrent metastatic lung CA, cough, syncope. SUBJECTIVE: The patient denies any chest pain, feels better, though speaks [place], he spoke to the utility teller, a resident. OBJECTIVE: GENERAL: Sitting at the bedside, not in apparent distress. VITAL SIGNS: Examination as follows; temperature afebrile, heart rate 134, blood pressure 139/94. HEENT: PERRLA intact. NECK: Supple. No carotid bruits or thyromegaly. CHEST: Clear to auscultation. HEART: S1 and S2, regular. ABDOMEN: Soft. EXTREMITIES: Clubbing and cyanosis negative. LABORATORY DATA: Blood workup as follows: WBC 18.5, hemoglobin 11.6, hematocrit 38.4, and platelet count 331. Chemistry shows sodium 130, potassium 4.5, chloride 97, carbon dioxide 31, anion gap of 15, BUN of 27, and creatinine 0.7. IMPRESSION: Atrial fibrillation with rapid ventricular rate, not well controlled; metastatic recurrent carcinoma with metastasis to the spine all over; pericardial effusion, possibly secondary to metastatic disease as well as cannot rule out secondary to chemotherapy, but hemodynamically not compromised, no sign of tamponade, moderate anterior pericardial effusion, large posterior pericardial effusion. Cough syncope, most likely secondary to vasovagal because of thoracic outlet obstruction, superior vena cava syndrome, and [id number] pericardial effusion that impedes total cardiac venous return and decrease the cardiac output due to cough and cause to the syncope. RECOMMENDATIONS: For the heart control, we changed Cardizem to verapamil, give 2.5 mg IV push and digoxin one dose and then start p.o. verapamil. Discussed with neurologic resident taking care of the patient about the syncope and also mechanism of syncope and also discussed with Heme/Onc resident working with Dr. Ram that at this point if survival is expected less than 6 months or a year, no benefit in doing the pericardial window. Since the patient is hemodynamically stable, it does not need emergent pericardiocentesis in the cardiac cath lab manager, but if the situation arise and the patient becomes hemodynamically comprised, you can take to the patient to the cardiac cath lab manager and do the pericardiocentesis or do the pericardial window that is a farm equipment engineer if the survival is more than a year. Also discussed with pulmonary physician, Dr. Kenny Vaca. He also thinks that prognosis is very poor and since the patient is not hemodynamically compromised, we will treat conservatively and follow up echo in 2 weeks, discussed with Dr. Ram yesterday. We will discontinue Cardizem and change to verapamil 40 t.i.d. stat dose now followed by t.i.d. Also, give one dose of digoxin 0.25 and give verapamil at 2.5 mg if the heart rate in the 130. We will follow with you. Also, please note the patient is not a candidate for anticoagulation because of the large posterior and moderate pericardial effusion, high-risk cough converting to hemorrhagic pericarditis. As in the echo also shows anterior cannot rule out in the pericardial space. Although, discussed with Dr. Vaca. So, if there are chance of pericardial invasion, probably pericardial window would be the better choice as mentioned above for long-term and recurrent effusion, but if the survival is less than 6 months, palliative treatment would be strongly considered. Thank you Dr. Ram for providing us the opportunity in taking care of the patient. Chante Bullard MD
[2017-07-16] MEDS: Levalbuterol 0.63 MG/3 ML Inhal Soln UD IH SCH ×4 (02:30→21:16)
[2017-07-16] MEDS: Pantoprazole 20 mg EC Tab PO SCH ×2 (05:25→13:07)
[2017-07-16] MEDS ORDERED: Lidocaine 2% Inj (20ml) ONE (07:06)
[2017-07-16] MEDS ORDERED: Iodixanol 320 MG/ML 200 ML BOTTLE IV ONE (07:07)
[2017-07-16] MEDS ORDERED: Iodixanol 320 MG/ML 100 ML BOTTLE IV ONE (07:07)
[2017-07-16] MEDS ORDERED: Nitroglycerin 50mg in D5W 50 MG/250 ML BOTTLE IV ONE (07:07)
[2017-07-16] MEDS ORDERED: Digoxin 500 mcg/2ml (0.5 mg/2ml) Inj IVP ONE (07:41)
[2017-07-16] MEDS ORDERED: diltiaZEM IVPB 100mg in NS 100 ML IV PRN ×2 (07:41→08:19)
[2017-07-16] MEDS: Budesonide 0.5 mg/2 ml Inhal Susp UD IH SCH ×2 (07:54→21:17)
--- NOTE | 2017-07-16 08:08 | PN ---
SUBJECTIVE: The patient appears comfortable this morning. He is not short of breath at rest. PHYSICAL EXAMINATION: VITAL SIGNS: Temperature is 97.8, pulse on the monitor is 122, respiratory rate 18-20, blood pressure 156/101. Oxygen saturation on nasal cannula is between 92% and 97%. HEENT: Normocephalic, atraumatic. NECK: No JVD. There is mild swelling of his face and right neck area. CARDIOVASCULAR: Positive S1, S2. No S3. LUNGS: Bronchial breath sounds-right lung. No rhonchi. No wheezing. EXTREMITIES: No clubbing, cyanosis or edema. Calves are nontender to palpation. GASTROINTESTINAL: Abdomen is soft, nontender and nondistended. Bowel sounds are positive. SKIN: No acute rash. NEUROLOGIC: Limited at the present time. IMPRESSION: 1. Acute bronchitis. 2. Advanced chronic obstructive pulmonary disease. 3. 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 4. 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 5. Anemia. 6. Rapid atrial fibrillation/atrial flutter. PLAN: The patient appears comfortable this morning. He is not short of breath at rest. He is coughing less. He does state to feeling much better overall. I did discuss the case with the night nurse at length. The night nurse confirmed that he is certainly doing much better than he was. On physical exam, his bronchospasm continues to resolve. In addition, there is no significant alveolar/arterial gradient. I will continue with the current nebulizer treatments and decrease the intravenous steroids this morning. Input by Dr. Bullard is noted. I did discuss the case with him yesterday at length. Decisions concerning the pericardial effusion are pending. Inputs by Oncology and Infectious Disease are also noted. Clinical status of the patient is definitely improved-compared to the initial presentation. However, again, future status/prognosis for this patient remains very poor. All are aware. I will discuss the above with the attending physician. Kenny Vaca MD [facility]ITALRonnie
[2017-07-16] MEDS ORDERED: Midazolam 2 MG/2 ML VIAL ONE ×2 (08:55→12:37)
[2017-07-16] MEDS ORDERED: Phenylephrine 10 mg/ml Inj ONE (09:14)
[2017-07-16] MEDS ORDERED: Morphine 2 mg/ml ISec ONE (09:28)
--- NOTE | 2017-07-16 11:44 | PN ---
DATE: LOCATION: The patient is in room 276, bed 2. 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 SUBJECTIVE: The patient denies any chest pain, feels better, coughing is definitely decreased since starting the patient on Lyrica. Although, this patient speaks Beninese, I got all the information through his daughter, who has interpreted all the symptoms for me throughout the examination. OBJECTIVE: GENERAL: The patient is sitting at the bedside, in no acute distress. VITAL SIGNS: Stable. T-max is 98.4, heart rate is 134, and blood pressure is 139/94. HEENT: Head is normocephalic, atraumatic. Facial swelling appears to be decreased. Neck swelling appears to be decreased. The patient is status post removal of port on the right side. Conjunctivae are pale. Sclerae are anicteric. Pupils are equally reactive to light and accommodation. Examination of the oropharynx reveals no oropharyngeal lesions. Tongue is moist. There are no ulcerations. NECK: Supple. There is no carotid bruit or thyromegaly. LUNGS: Relatively clear to percussion and auscultation on the left side. Decreased breath sounds on the right side with bronchial breath sounds in the right upper lobe posteriorly. HEART: Reveals S1 and S2 to be normal. No gallop or murmur is heard. ABDOMEN: Soft and nontender. EXTREMITIES: The patient has edema of the lower extremities. There is no clubbing or any cyanosis. LABORATORY DATA: Reveals a white count of 18.5, hemoglobin 11.6, hematocrit 38, and platelet count is 330,000. Sodium is 130, K is 4.5, chloride is 97, CO2 is 31, anion gap is 15, BUN is 27, and creatinine is 0.7. MEDICATIONS: The patient's medicines were reviewed and no new changes have been made. ASSESSMENT NOTES AND PLAN: The patient has atrial fibrillation with rapid ventricular response, not well controlled; metastatic recurrent progressive non-small cell carcinoma of the right lung with documented metastasis causing pleural effusion, pericardial effusion, which could be primarily related to progression of disease rather than effects of chemotherapy. The patient is hemodynamically not compromised at this time, without any evidence of cardiac tamponade based on the most recent echocardiogram. The patient has both anterior and posterior myocardial infusion. Cough, syncope are most likely secondary to vasovagal because of thoracic outlet obstruction, superior vena cava syndrome, and [id number] pericardial effusion that impedes total cardiac venous return, reduces the cardiac output due to cough and causes the syncope. A detailed discussion with Dr. Bullard, I spoke to Dr. Oleg Williamson as well. Plan is to do a superior vena cavogram in the a.m., and if necessary, place stents in both the subclavian veins, if necessary to alleviate some of the symptoms of the thoracic outlet syndrome. In the meantime, for heart rate control, we will change the Cardizem to verapamil 2.5 mg IV push, digoxin one dose, and started on oral verapamil as well. The patient was seen by the neurologist. We recommend conservative treatment at this time. The patient has already been started on Cardizem and has been changed over to verapamil. We will try to see if the testing for the stenting can be put in tomorrow after the superior vena cavogram, and then once that is done, we will discharge the patient and try to follow him as an outpatient and make further decisions regarding the pericardiocentesis or pericardial window through both Pulmonary and Cardiology at this point in time. There is no urgency to do it in view of the fact that he is not compromised. I will reach out to Dr. Bergman, who operated on him initially and present the case to him as well and see what he wants to do. In the meantime, we are going to continue with the Keytruda once the assessment for the SVC syndrome and placement of stent is resolved tomorrow morning. We discussed all these findings in detail with the patient through the daughter, who interpreted everything for me, and even though the prognosis is guarded, in general, please make a note that after the diagnosis of recurrence and progression of disease, the patient was still having persistent disease for the past 16 to 18 months. There is no overt metastases seen elsewhere, at least on the CAT scan to suggest to us that his disease has escalated to the point that he has only a few weeks to live. The patient could still continue to do well with current manipulation, albeit that it would be small. Routine post-exam instructions have been given to the patient and Nanci, his daughter, as well, who is also going to talk to the patient so there is completely understanding of what needs to be done in a.m. I have spoken to the nurses as well, and the patient is going to kept n.p.o. in preparation for the planned procedure tomorrow. Elaine Ram MD
--- NOTE | 2017-07-16 12:59 | PN ---
DATE: 07/16/2017 REASON FOR CONSULTATION: Followup atrial fibrillation ,flutter, large pericardial effusion, recurrent metastatic lung carcinoma, cough, syncope, status post pericardiocentesis, 1.1 L straw-colored fluid drained. SUBJECTIVE: The patient denies any chest pain, but having cough during the pericardiocentesis and heart rate was faster, now feels better, having venogram to rule out SVC syndrome. PHYSICAL EXAMINATION: VITAL SIGNS: Heart rate 120, blood pressure 160/90. HEENT: PERRLA, intact. NECK: Supple. No carotid bruits or thyromegaly. Neck vein engorged. CHEST: Clear to auscultation. HEART: S1 and S2, regular. ABDOMEN: Soft. EXTREMITIES: Clubbing and cyanosis negative. LABORATORY DATA: Blood workup as follows, WBC 18.5, hemoglobin 11.6, hematocrit 38.4, and platelet count 331. Chemistry shows sodium 130, potassium 4.5, chloride 97, carbon dioxide 31, anion gap of 15, BUN of 27, and creatinine 0.7. IMPRESSION: Recurrent lung carcinoma with metastasis, atrial fibrillation with rapid ventricular rate, atrial flutter, lung carcinoma with metastasis to the spine, spleen, pericardial effusion, large posterior, moderate anterior, rule out metastasis to the pericardium, status post pericardiocentesis, 1100 mL fluid was drained this morning in [facility] by Dr. Williamson,rule out thoracic outlet obstruction, status post repeat echo stat at the [facility], trivial pericardial effusion. RECOMMENDATIONS: We will leave the pigtail catheter. We will re-scan tomorrow echo to assess residual accumulation of the pericardial fluid and now it would be drained with a pigtail catheter. The patient will have angiogram to rule out SVC syndrome. We will leave the Cardizem drip 10 mL an hour and also give Ancef 1 g q. 8 hours. Further recommend hospital course. We will transfer the patient to ICU. Pericardiocentesis done at the [facility] by Dr. Williamson assisted by me. Chante Bullard MD
[2017-07-16] MEDS: diltiaZEM IVPB 100mg in NS 100 ML IV PRN ×2 (13:00→21:53)
[2017-07-16 13:06] LABS: GRAN # 16.56 (1.4-6.5); GRAN % 92.3 % (50.0-68.0); HEMATOCRIT 40.6 % (42.0-52.0); LYMPH # 0.6 (1.2-3.4); LYMPH % 3.3 % (22.0-35.0); MEAN CELL VOLUME 93.3 fl (80.0-105.0); MEAN CORPUSCULAR HEMOGLOBIN 29.2 pg (25.0-35.0); MEAN CORPUSCULAR HGB CONC 31.3 g/dl (31.0-37.0); MONO # 0.8 (0.1-0.6); MONO % 4.4 % (1.0-6.0); PLATELET COUNT 309 10^3/uL (120.0-450.0); WHITE BLOOD COUNT 17.9 10^3/ul (4.5-11.0)
[2017-07-16] MEDS: MethylPREDNISolone 40 mg Vial IVP SCH ×2 (13:09→21:52)
[2017-07-16 13:17] LABS: ALB/GLOB RATIO 1.2 (1.1-1.8); ALKALINE PHOSPHATASE 103 U/L (38-126); ALT/SGPT 109 U/L (7-56); AST/SGOT 58 U/L (17-59); BILIRUBIN,TOTAL 0.4 mg/dL (0.2-1.3); BLOOD UREA NITROGEN 23 mg/dL (7-21); CALCIUM 8.7 mg/dL (8.4-10.5); CARBON DIOXIDE 36 mmol/L (21-33); CHLORIDE 95 mmol/L (98-107); GFR AFRICAN-AMERICAN > 60; GLUCOSE,RANDOM 179 mg/dL (70-110); PHOSPHOROUS 2.8 mg/dL (2.5-4.5); POTASSIUM 3.9 mmol/L (3.6-5.0); SODIUM 139 mmol/L (132-148); TOTAL PROTEIN 6.3 g/dL (5.8-8.3)
[2017-07-16 13:29] LABS: INR 1.2 (0.93-1.08); PARTIAL THROMBOPLASTIN TIME 23.7 Seconds (23.7-30.8)
--- NOTE | 2017-07-16 13:39 | CP.CCUPN ---
CCU Subjective - Physician Review Events Since Last Encounter (Free Text): 07/16/17 13:35 67 y/o M w/ advanced Lung ca admitted to the MICU after pericardiocentesis . Post -op patient is not in any distress and doing well. CCU Objective - Vital Signs / Intake & Output Vital Signs (Last 4 hours): Vital Signs Pulse Resp BP Pulse Ox 07/16/17 13:02 134 H 116/73 07/16/17 12:20 134 H 28 H 98 07/16/17 12:10 134 H 26 H 96 07/16/17 12:00 133 H 142/82 96 07/16/17 11:50 112 H 36 H 98 07/16/17 11:40 100 H 29 H 96 07/16/17 10:00 135 H 07/16/17 09:56 128 H 185/99 H Intake and Output (Last 8hrs): Intake & Output 07/15/17 07/16/17 07/16/17 22:59 06:59 14:59 Intake Total 0 Output Total 0 Balance 0 Weight 219 lb Intake: Oral 0 Output: Stool 0 Other: # Voids Urine, Voided 4 - Physical Exam Pupils: Positive for: PERRL Extroacular Muscles: Positive for: EOMI Conjunctiva: Positive for: Normal Mouth: Positive for: Moist Mucous Membranes Pharnyx: Positive for: Normal Neck: Positive for: Normal Range of Motion Respiratory/Chest: Positive for: Clear to Auscultation, Good Air Exchange Cardiovascular: Positive for: Regular Rate and Rhythm, Other (pericardial drain in place ) Upper Extremity: Positive for: Normal Inspection Lower Extremity: Positive for: Normal Inspection Neurological: Positive for: GCS=15, CN II-XII Intact - Medications Active Medications: Active Medications Generic Name Dose Route Start Last Admin Trade Name Freq PRN Reason Stop Dose Admin Acetaminophen 650 mg 07/11/17 16:47 07/15/17 21:28 Tylenol 325mg Tab PO 650 mg Q4 PRN Administration Pain, Mild (1-3) Azithromycin 500 mg 07/16/17 10:00 07/16/17 13:07 Zithromax PO 07/23/17 10:01 500 mg DAILY MITALI Administration Protocol Budesonide 0.5 mg 07/11/17 20:00 07/16/17 07:54 Pulmicort Respules IH 0.5 mg [id number] MITALI Administration Codeine Sulfate 30 mg 07/12/17 14:22 07/15/17 21:28 Codeine PO 30 mg QID PRN Administration Cough diltiaZEM IVPB 100mg in NS 100 mls @ 10 mls/hr 07/16/17 09:53 Cardizem 100mg In Ns IV .Q10H PRN TITRATE PER MD ORDER Protocol 10 MG/HR Cefazolin Sodium 1 gm in 100 mls @ 100 mls/hr 07/16/17 14:00 Ancef 1gm In Ns IVPB Q8 MITALI Protocol Levalbuterol HCl 0.63 mg 07/11/17 14:00 07/16/17 13:17 Xopenex IH Not Given [id number] MITALI Levalbuterol HCl 0.63 mg 07/11/17 11:29 07/12/17 18:50 Xopenex IH 0.63 mg Q2 PRN Administration Shortness of Breath Methylprednisolone 30 mg 07/16/17 10:00 07/16/17 13:09 Solu-Medrol IVP 30 mg Q12 MITALI Administration Pantoprazole Sodium 20 mg 07/13/17 06:00 07/16/17 13:07 Protonix Ec Tab PO 20 mg 0600 MITALI Administration Pregabalin 25 mg 07/12/17 22:00 07/15/17 21:22 Lyrica PO 25 mg Q12 MITALI Administration - Patient Studies Lab Studies: Lab Studies 07/16/17 07/16/17 07/16/17 Range/Units 13:00 13:00 13:00 WBC 17.9 H (4.5-11.0) 10^3/ul RBC 4.35 (3.5-6.1) 10^6/uL Hgb 12.7 L (14.0-18.0) g/dL Hct 40.6 L (42.0-52.0) % MCV 93.3 (80.0-105.0) fl MCH 29.2 (25.0-35.0) pg MCHC 31.3 (31.0-37.0) g/dl RDW 14.0 (11.5-14.5) % Plt Count 309 (120.0-450.0) 10^3/uL MPV 9.0 (7.0-11.0) fl Gran % 92.3 H (50.0-68.0) % Lymph % (Auto) 3.3 L (22.0-35.0) % Webb % (Auto) 4.4 (1.0-6.0) % Eos % (Auto) 0.0 L (1.5-5.0) % Baso % (Auto) 0.0 (0.0-3.0) % Gran # 16.56 H (1.4-6.5) Lymph # 0.6 L (1.2-3.4) Webb # 0.8 H (0.1-0.6) Eos # 0.0 (0.0-0.7) Baso # 0.00 (0.0-2.0) K/mm3 PT 13.0 H (9.9-11.8) Seconds INR 1.20 H (0.93-1.08) APTT 23.7 (23.7-30.8) Seconds Sodium 139 (132-148) mmol/L Potassium 3.9 (3.6-5.0) mmol/L Chloride 95 L (98-107) mmol/L Carbon Dioxide 36 H (21-33) mmol/L Anion Gap 12 (10-20) BUN 23 H (7-21) mg/dL Creatinine 0.6 L (0.8-1.5) mg/dL Est GFR ( Amer) > 60 Est GFR (Non-Af Amer) > 60 Random Glucose 179 H (70-110) mg/dL Calcium 8.7 (8.4-10.5) mg/dL Phosphorus 2.8 (2.5-4.5) mg/dL Magnesium 2.0 (1.7-2.2) mg/dL Total Bilirubin 0.4 (0.2-1.3) mg/dL AST 58 (17-59) U/L ALT 109 H (7-56) U/L Alkaline Phosphatase 103 (38-126) U/L Total Protein 6.3 (5.8-8.3) g/dL Albumin 3.4 (3.0-4.8) g/dL Globulin 2.9 gm/dL Albumin/Globulin Ratio 1.2 (1.1-1.8) Laboratory Results - last 24 hr 07/16/17 07/16/17 07/16/17 13:00 13:00 13:00 WBC 17.9 H RBC 4.35 Hgb 12.7 L Hct 40.6 L MCV 93.3 MCH 29.2 MCHC 31.3 RDW 14.0 Plt Count 309 MPV 9.0 Gran % 92.3 H Lymph % (Auto) 3.3 L Webb % (Auto) 4.4 Eos % (Auto) 0.0 L Baso % (Auto) 0.0 Gran # 16.56 H Lymph # 0.6 L Webb # 0.8 H Eos # 0.0 Baso # 0.00 PT 13.0 H INR 1.20 H APTT 23.7 Sodium 139 Potassium 3.9 Chloride 95 L Carbon Dioxide 36 H Anion Gap 12 BUN 23 H Creatinine 0.6 L Est GFR ( Amer) > 60 Est GFR (Non-Af Amer) > 60 Random Glucose 179 H Calcium 8.7 Phosphorus 2.8 Magnesium 2.0 Total Bilirubin 0.4 AST 58 ALT 109 H Alkaline Phosphatase 103 Total Protein 6.3 Albumin 3.4 Globulin 2.9 Albumin/Globulin Ratio 1.2 Review of Systems - EENT Eyes: UNREMARKABLE Nose/Mouth/Throat: UNREMARKABLE - Cardiovascular Cardiovascular: UNREMARKABLE - Respiratory Respiratory: UNREMARKABLE - Gastrointestinal Gastrointestinal: UNREMARKABLE - Genitourinary Genitourinary: UNREMARKABLE - Musculoskeletal Musculoskeletal: UNREMARKABLE - Integumentary Integumentary: UNREMARKABLE Critical Care Progress Note - Ventilator Checklist Head of Bed 30 Degrees: Yes Daily Sedation Vacation: Yes Daily Assessment of Readiness to Wean: Yes Daily Spontaneous Breathing Trial: Yes PUD Prophalyxis: Yes DVT Prophylaxis: Yes Oral Care with Chlorhexidine Gluconate {CHG}: Yes - Nutrition Nutrition: Nutrition Category Date Time Status Heart Healthy Diet [DIET] Diets 07/16/17 Lunch Ordered Assessment/Plan - Assessment and Plan (Free Text) Assessment: 67 y/o M w/ Advanced Lung ca S/P pericardiocentesis / 100 cc drainage. cytology and cx sent. Likely malignancy related. A.fib rate controled on several medications such as ca+ blockers and DIgoxin per cardiology . Repeat ECHo needed in the a.m to evaluate heart function and pericardial fluid. Palliative care in place. PT/OT Onc management per Dr Sharma. cc time 35 mn
[2017-07-16 13:50] LABS: NEUTROPHIL 92 % (50.0-70.0)
[2017-07-16] MEDS: ceFAZolin 1 gm in NS 1 GM/100 ML BAG IVPB SCH ×2 (14:33→21:51)
--- NOTE | 2017-07-16 15:51 | CP.PCM.PN ---
<Tutu Rondon - Last Filed: 07/16/17 21:25> Subjective - Date & Time of Evaluation Date of Evaluation: 07/16/17 Time of Evaluation: 15:47 - Subjective Subjective: Progress note for Dr. Ram's service Patient seen and examined at bedside. He is s/p pericardiocentesis and reported feeling some mild improvement post procedure. Denied any new complaints or overnight events. Denied chest pain, palpitations, SOB. Objective - Vital Signs/Intake and Output Vital Signs (last 24 hours): Temp Pulse Resp BP Pulse Ox 97.8 F 84 28 H 122/68 98 07/16/17 06:00 07/16/17 15:11 07/16/17 12:20 07/16/17 15:11 07/16/17 12:20 Intake and Output: 07/16/17 07/16/17 06:59 18:59 Intake Total 0 20 Output Total 0 Balance 0 20 - Medications Medications: Current Medications Acetaminophen (Tylenol 325mg Tab) 650 mg PO Q4 PRN PRN Reason: Pain, Mild (1-3) Last Admin: 07/15/17 21:28 Dose: 650 mg Azithromycin (Zithromax) 500 mg PO DAILY [facility] PRN Reason: Protocol Stop: 07/23/17 10:01 Last Admin: 07/16/17 13:07 Dose: 500 mg Budesonide (Pulmicort Respules) 0.5 mg [facility] [id number] [facility] Last Admin: 07/16/17 07:54 Dose: 0.5 mg diltiaZEM IVPB 100mg in NS (Cardizem 100mg In Ns) 100 mls @ 10 mls/hr IV .Q10H PRN; Protocol; 10 MG/HR PRN Reason: TITRATE PER MD ORDER Last Titration: 07/16/17 15:06 Dose: 10 mg/hr, 10 mls/hr Cefazolin Sodium (Ancef 1gm In Ns) 1 gm in 100 mls @ 100 mls/hr IVPB Q8 [facility] PRN Reason: Protocol Last Admin: 07/16/17 14:33 Dose: 100 mls/hr Levalbuterol HCl (Xopenex) 0.63 mg [facility] [id number] [facility] Last Admin: 07/16/17 13:17 Dose: Not Given Levalbuterol HCl (Xopenex) 0.63 mg IH Q2 PRN PRN Reason: Shortness of Breath Last Admin: 07/12/17 18:50 Dose: 0.63 mg Methylprednisolone (Solu-Medrol) 30 mg IVP Q12 [facility] Last Admin: 07/16/17 13:09 Dose: 30 mg Metoprolol Tartrate (Lopressor) 50 mg PO BRKDIN [facility] Pantoprazole Sodium (Protonix Ec Tab) 20 mg PO 0600 [facility] Last Admin: 07/16/17 13:07 Dose: 20 mg Pregabalin (Lyrica) 25 mg PO Q12 [facility] Last Admin: 07/16/17 14:35 Dose: 25 mg - Labs Labs: 07/16/17 13:00 07/16/17 13:00 PT 13.0 Seconds (9.9-11.8) H 07/16/17 13:00 INR 1.20 (0.93-1.08) H 07/16/17 13:00 APTT 23.7 Seconds (23.7-30.8) 07/16/17 13:00 - Constitutional Appears: No Acute Distress - Head Exam Head Exam: ATRAUMATIC, NORMAL INSPECTION, NORMOCEPHALIC - Eye Exam Eye Exam: EOMI, PERRL - ENT Exam ENT Exam: Mucous Membranes Moist - Respiratory Exam Respiratory Exam: Decreased Breath Sounds. absent: Rales, Rhonchi, Wheezes - Cardiovascular Exam Cardiovascular Exam: +S1, +S2. absent: Gallop, Rubs, Murmur - GI/Abdominal Exam GI & Abdominal Exam: Soft. absent: Distended, Firm, Guarding, Rigid, Tenderness , Rebound - Neurological Exam Neurological Exam: Alert, Awake, Oriented x3 - Psychiatric Exam Psychiatric exam: Normal Affect, Normal Mood - Skin Skin Exam: Dry, Intact, Normal Color, Warm Assessment and Plan - Assessment and Plan (Free Text) Plan: 67yo male with history of stage IV metastatic non-small cell lung carcinoma s/p resection and chemo/radiation, COPD, atrial flutter, hypertension and GERD admitted for progressive cough with associated syncope 1. Pericardial effusion -Patient is s/p pericardiocentesis; fluid sent for further testing including PDL1 stain; likely malignancy related -Will discuss for potential pericardial window -Cardiology consulted 2. Stage IV non-small cell lung carcinoma -Patient is s/p resection and chemoradiation -Progressively worsening carcinoma of the right lung -Currently being treated with Keytruda given the extensiveness of his malignancy 3. Atrial flutter -Telemetry monitoring -Continue with cardizem drip and metoprolol 50mg PO BID as per cardiology recommendations 4. COPD -Continue with bronchodilators and steroid taper as per pulmonary recommendations 5. GERD -Continue protonix Patient seen and case discussed with attending, Dr. Ram <Elaine Ram - Last Filed: 07/19/17 10:49> Objective - Vital Signs/Intake and Output Vital Signs (last 24 hours): Temp Pulse Resp BP Pulse Ox 98.8 F 91 H 20 138/71 96 07/19/17 06:00 07/19/17 08:49 07/19/17 06:00 07/19/17 08:49 07/19/17 06:00 Intake and Output: 07/19/17 07/19/17 06:59 18:59 Intake Total 640 Output Total 1950 Balance -1310 - Medications Medications: Current Medications Acetaminophen (Tylenol 325mg Tab) 650 mg PO Q4 PRN PRN Reason: Pain, Mild (1-3) Last Admin: 07/16/17 18:00 Dose: 650 mg Azithromycin (Zithromax) 500 mg PO DAILY [facility]ALI PRN Reason: Protocol Stop: 07/23/17 10:01 Last Admin: 07/18/17 10:46 Dose: 500 mg Budesonide (Pulmicort Respules) 0.5 mg IH [id number] [facility] Last Admin: 07/19/17 07:48 Dose: Not Given Diphenhydramine HCl (Benadryl) 50 mg IVP HS PRN PRN Reason: Insomnia Last Admin: 07/16/17 21:51 Dose: 50 mg diltiaZEM IVPB 100mg in NS (Cardizem 100mg In Ns) 100 mls @ 10 mls/hr IV .Q10H PRN; Protocol; 10 MG/HR PRN Reason: TITRATE PER MD ORDER Last Admin: 07/19/17 04:17 Dose: 10 mg/hr, 10 mls/hr Levalbuterol HCl (Xopenex) 0.63 mg IH [id number] [facility] Last Admin: 07/19/17 07:48 Dose: Not Given Levalbuterol HCl (Xopenex) 0.63 mg IH Q2 PRN PRN Reason: Shortness of Breath Last Admin: 07/12/17 18:50 Dose: 0.63 mg Methylprednisolone (Solu-Medrol) 30 mg IVP Q12 [facility] Last Admin: 07/18/17 22:06 Dose: 30 mg Metoprolol Tartrate (Lopressor) 50 mg PO BRKDIN [facility] Last Admin: 07/19/17 08:49 Dose: 50 mg Pantoprazole Sodium (Protonix Ec Tab) 20 mg PO 0600 [facility] Last Admin: 07/19/17 06:05 Dose: 20 mg Pregabalin (Lyrica) 25 mg PO Q12 [facility] Last Admin: 07/18/17 22:06 Dose: 25 mg - Labs Labs: 07/18/17 09:00 07/18/17 09:00 PT 13.0 Seconds (9.9-11.8) H 07/16/17 13:00 INR 1.20 (0.93-1.08) H 07/16/17 13:00 APTT 23.7 Seconds (23.7-30.8) 07/16/17 13:00 Attending/Attestation - Attestation I have personally seen and examined this patient.: Yes I have fully participated in the care of the patient.: Yes I have reviewed all pertinent clinical information, including history, physical exam and plan: Yes
--- NOTE | 2017-07-16 17:29 | PN ---
DATE: 07/16/2017 SUBJECTIVE: The patient was seen early this morning in room 276, bed 2 with weakness. No fevers. The patient had been comfortable with no shortness of breath. No fevers and chills. However, he was weak. OBJECTIVE: VITAL SIGNS: On exam, temperature is 98, blood pressure is 116/70, respiratory rate of 26, heart rate of 113. HEENT: Unremarkable. NECK: Supple. LUNGS: Have decreased breath sounds. HEART: Exam has normal S1, S2. ABDOMEN: Examination is soft, nontender. LABORATORY EXAMINATION: Reveals a white count of 17,900, hemoglobin of 12, platelets of 309. Coagulation is noted. Chemistries reveals a BUN of 23, creatinine of 0.6, procalcitonin 0.08. Microbiology reveals the blood cultures are negative and Dr. Bullard's note is reviewed. 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 Williamson and this patient currently is in the ICU, was transferred to the ICU post procedure with acute bronchitis and right-sided healthcare associated pneumonia, non-small cell lung cancer, pneumonectomy hypertension, obesity with a BMI of 34. Day #4 of Zithromax and status post pericardiocentesis, 1100 fluids. The patient was started on cefazolin by Dr. Bullard and on p.o. Zithromax. Overall, prognosis is poor for this patient. Osvaldo Lyons MD
[2017-07-16] MEDS ORDERED: DiphenhydrAMINE 50 mg/ml Inj IVP PRN (18:33)
--- NOTE | 2017-07-16 19:24 | VASCULAR ---
PROCEDURE: 1. Right upper extremity venogram. 2. SVC gram. 3. Right subclavian vein angioplasty. HISTORY: Metastatic lung CA. Head and neck swelling. Evaluate for SVC thrombosis and syndrome PHYSICIAN(S): Oleg Williamson M.D. TECHNIQUE: The relative risks and indications of the procedure were explained to the patient and his daughter and consent obtained. The patient was placed supine on angiogram table and the right arm prepped and draped usual sterile fashion. Conscious sedation monitoring were provided throughout the procedure by a nurse. A tourniquet was applied the right axilla. Under ultrasound guidance, the right basilic vein above the elbow was punctured with a micropuncture set. A 5 Moroccan sheath was placed. An overlapping right upper extremity venogram was performed. 7 Moroccan sheath was placed. Central venous imaging was performed. 0.035 support wire was placed in the IVC. The right subclavian vein stenosis was dilated with a 12 mm balloon. Completion venograms were obtained. The sheath was removed hemostasis obtained. The patient tolerated the procedure well. FINDINGS: The right basilic and axillary veins are patent and normal. There is a tapered severe stenosis of the proximal right subclavian vein. The superior vena cava is patent without significant occlusive disease or collaterals. IMPRESSION: 1.No radiographic evidence for SVC syndrome. 2. Severe focal right subclavian vein stenosis. 3. Successful right subclavian vein angioplasty
[2017-07-17] MEDS: Levalbuterol 0.63 MG/3 ML Inhal Soln UD IH SCH ×4 (02:50→21:31)
[2017-07-17] MEDS: Pantoprazole 20 mg EC Tab PO SCH (05:28)
[2017-07-17] MEDS: ceFAZolin 1 gm in NS 1 GM/100 ML BAG IVPB SCH ×3 (05:28→21:19)
[2017-07-17] MEDS: diltiaZEM IVPB 100mg in NS 100 ML IV PRN ×2 (07:50→23:53)
[2017-07-17] MEDS: Budesonide 0.5 mg/2 ml Inhal Susp UD IH SCH ×2 (08:05→21:31)
[2017-07-17] MEDS: MethylPREDNISolone 40 mg Vial IVP SCH ×2 (10:00→21:20)
--- NOTE | 2017-07-17 11:38 | CP.PCM.PN ---
<Tutu Rondon - Last Filed: 07/17/17 11:32> Subjective - Date & Time of Evaluation Date of Evaluation: 07/17/17 Time of Evaluation: 11:39 - Subjective Subjective: Progress note for Dr. Ram's service Patient seen and examined at bedside. No acute overnight events or new complaints. Denies cp, palpitations, SOB. Objective - Vital Signs/Intake and Output Vital Signs (last 24 hours): Temp Pulse Resp BP Pulse Ox 97.4 F L 90 26 H 135/67 94 L 07/17/17 04:26 07/17/17 07:52 07/17/17 06:10 07/17/17 07:52 07/17/17 06:30 Intake and Output: 07/17/17 07/17/17 06:59 18:59 Intake Total 1000 100 Output Total 3350 Balance -2350 100 - Medications Medications: Current Medications Acetaminophen (Tylenol 325mg Tab) 650 mg PO Q4 PRN PRN Reason: Pain, Mild (1-3) Last Admin: 07/16/17 18:00 Dose: 650 mg Azithromycin (Zithromax) 500 mg PO DAILY [facility] PRN Reason: Protocol Stop: 07/23/17 10:01 Last Admin: 07/17/17 10:00 Dose: 500 mg Budesonide (Pulmicort Respules) 0.5 mg IH [id number] [facility] Last Admin: 07/17/17 08:05 Dose: Not Given Diphenhydramine HCl (Benadryl) 50 mg IVP HS PRN PRN Reason: Insomnia Last Admin: 07/16/17 21:51 Dose: 50 mg diltiaZEM IVPB 100mg in NS (Cardizem 100mg In Ns) 100 mls @ 10 mls/hr IV .Q10H PRN; Protocol; 10 MG/HR PRN Reason: TITRATE PER MD ORDER Last Admin: 07/17/17 07:50 Dose: 10 mg/hr, 10 mls/hr Cefazolin Sodium (Ancef 1gm In Ns) 1 gm in 100 mls @ 100 mls/hr IVPB Q8 [facility] PRN Reason: Protocol Last Admin: 07/17/17 05:28 Dose: 100 mls/hr Levalbuterol HCl (Xopenex) 0.63 mg IH [id number] [facility] Last Admin: 07/17/17 08:05 Dose: Not Given Levalbuterol HCl (Xopenex) 0.63 mg IH Q2 PRN PRN Reason: Shortness of Breath Last Admin: 07/12/17 18:50 Dose: 0.63 mg Methylprednisolone (Solu-Medrol) 30 mg IVP Q12 [facility] Last Admin: 07/17/17 10:00 Dose: 30 mg Metoprolol Tartrate (Lopressor) 50 mg PO BRKDIN [facility] Last Admin: 07/17/17 07:52 Dose: 50 mg Pantoprazole Sodium (Protonix Ec Tab) 20 mg PO 0600 [facility] Last Admin: 07/17/17 05:28 Dose: 20 mg Pregabalin (Lyrica) 25 mg PO Q12 [facility] Last Admin: 07/17/17 10:00 Dose: 25 mg - Labs Labs: 07/16/17 13:00 07/16/17 13:00 PT 13.0 Seconds (9.9-11.8) H 07/16/17 13:00 INR 1.20 (0.93-1.08) H 07/16/17 13:00 APTT 23.7 Seconds (23.7-30.8) 07/16/17 13:00 - Constitutional Appears: No Acute Distress - Head Exam Head Exam: ATRAUMATIC, NORMAL INSPECTION, NORMOCEPHALIC - Eye Exam Eye Exam: EOMI, PERRL - ENT Exam ENT Exam: Mucous Membranes Moist - Respiratory Exam Respiratory Exam: Decreased Breath Sounds. absent: Rales, Rhonchi, Wheezes - Cardiovascular Exam Cardiovascular Exam: +S1, +S2. absent: Gallop, Rubs, Murmur - GI/Abdominal Exam GI & Abdominal Exam: Soft. absent: Firm, Guarding, Rigid, Tenderness, Rebound - Extremities Exam Extremities Exam: Normal Inspection - Neurological Exam Neurological Exam: Alert, Awake, Oriented x3 - Psychiatric Exam Psychiatric exam: Normal Affect, Normal Mood - Skin Skin Exam: Dry, Intact, Normal Color, Warm Assessment and Plan - Assessment and Plan (Free Text) Plan: 67yo male with history of stage IV metastatic non-small cell lung carcinoma s/p resection and chemo/radiation, COPD, atrial flutter, hypertension and GERD admitted for progressive cough with associated syncope 1. Pericardial effusion -Patient is s/p pericardiocentesis; 1100cc fluid drained; fluid sent for further testing including PDL1 stain; likely malignancy related -Echocardiogram ordered post pericardiocentesis -Case discussed with cardiothoracic surgeon, Dr. Jin Prabhakar regarding potential transfer for pericardial window. Recommended to keep drain in place for the time being and assess for fluid reacculumation -Cardiology consulted 2. Stage IV non-small cell lung carcinoma -Patient is s/p resection and chemoradiation -Progressively worsening carcinoma of the right lung -Currently being treated with Keytruda given the extensiveness of his malignancy 3. Atrial flutter -Telemetry monitoring -Continue with cardizem drip and metoprolol 50mg PO BID as per cardiology recommendations 4. COPD -Continue with bronchodilators and steroid taper as per pulmonary recommendations 5. GERD -Continue protonix Patient seen and case discussed with attending, Dr. Ram <Elaine Ram P - Last Filed: 07/19/17 10:51> Objective - Vital Signs/Intake and Output Vital Signs (last 24 hours): Temp Pulse Resp BP Pulse Ox 98.8 F 91 H 20 138/71 96 07/19/17 06:00 07/19/17 08:49 07/19/17 06:00 07/19/17 08:49 07/19/17 06:00 Intake and Output: 07/19/17 07/19/17 06:59 18:59 Intake Total 640 Output Total 1950 Balance -1310 - Medications Medications: Current Medications Acetaminophen (Tylenol 325mg Tab) 650 mg PO Q4 PRN PRN Reason: Pain, Mild (1-3) Last Admin: 07/16/17 18:00 Dose: 650 mg Azithromycin (Zithromax) 500 mg PO DAILY MITALI PRN Reason: Protocol Stop: 07/23/17 10:01 Last Admin: 07/18/17 10:46 Dose: 500 mg Budesonide (Pulmicort Respules) 0.5 mg IH [id number] [facility] Last Admin: 07/19/17 07:48 Dose: Not Given Diphenhydramine HCl (Benadryl) 50 mg IVP HS PRN PRN Reason: Insomnia Last Admin: 07/16/17 21:51 Dose: 50 mg diltiaZEM IVPB 100mg in NS (Cardizem 100mg In Ns) 100 mls @ 10 mls/hr IV .Q10H PRN; Protocol; 10 MG/HR PRN Reason: TITRATE PER MD ORDER Last Admin: 07/19/17 04:17 Dose: 10 mg/hr, 10 mls/hr Levalbuterol HCl (Xopenex) 0.63 mg IH [id number] [facility] Last Admin: 07/19/17 07:48 Dose: Not Given Levalbuterol HCl (Xopenex) 0.63 mg IH Q2 PRN PRN Reason: Shortness of Breath Last Admin: 07/12/17 18:50 Dose: 0.63 mg Methylprednisolone (Solu-Medrol) 30 mg IVP Q12 [facility] Last Admin: 07/18/17 22:06 Dose: 30 mg Metoprolol Tartrate (Lopressor) 50 mg PO BRKDIN [facility] Last Admin: 07/19/17 08:49 Dose: 50 mg Pantoprazole Sodium (Protonix Ec Tab) 20 mg PO 0600 [facility] Last Admin: 07/19/17 06:05 Dose: 20 mg Pregabalin (Lyrica) 25 mg PO Q12 [facility] Last Admin: 07/18/17 22:06 Dose: 25 mg - Labs Labs: 07/18/17 09:00 07/18/17 09:00 PT 13.0 Seconds (9.9-11.8) H 07/16/17 13:00 INR 1.20 (0.93-1.08) H 07/16/17 13:00 APTT 23.7 Seconds (23.7-30.8) 07/16/17 13:00 Attending/Attestation - Attestation I have personally seen and examined this patient.: Yes I have fully participated in the care of the patient.: Yes I have reviewed all pertinent clinical information, including history, physical exam and plan: Yes
--- NOTE | 2017-07-17 11:47 | PN ---
PULMONARY NOTE DATE: 07/17/2017 SUBJECTIVE: The patient appears comfortable this morning. He is not short of breath at rest. OBJECTIVE: VITAL SIGNS: Temperature is 97.4, pulse 90, respirations 20, blood pressure 135/67. Oxygen saturation on nasal cannula is 95%. HEENT: Normocephalic and atraumatic. NECK: No JVD. There remains mild swelling of his face and right neck area. CARDIOVASCULAR: Positive S1 and S2. No S3 or gallop. LUNGS: Bronchial breath sounds - right lung. No rhonchi. No wheezing. EXTREMITIES: No clubbing, cyanosis, or edema. Calves are nontender to palpation. GASTROINTESTINAL: Abdomen is soft, nontender, and nondistended. Bowel sounds are positive. SKIN: No acute rash. There is a pericardial drain in place. NEUROLOGIC: Limited at the present time. IMPRESSION: 1. Acute bronchitis. 2. Advanced chronic obstructive pulmonary disease. 3. 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 4. 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 5. Anemia. 6. Rapid atrial fibrillation/atrial flutter. 7. Pericardial effusion, status post drain. PLAN: The patient appears comfortable this morning. He is not short of breath at rest. He is coughing much less overall. He states that he is feeling much better overall. I did discuss the case with the night nurse at length. The night nurse stated that the patient had a good night. He is status post pericardial drainage procedure. Approximately 1300 mL has been drained so far. Specimens have been sent for further analysis. On physical exam, his bronchospasm is significantly less-- compared to the initial presentation. I will continue the current nebulizer treatments and low-dose intravenous steroids for now. I would continue with the cardiology evaluation. Input by Dr. uBllard is noted. Clinical status of the patient is certainly improved - compared to the initial presentation. However, again, the overall status/prognosis for this patient remains very poor. All are aware. I will discuss the above with the attending physician. Kenny Vaca MD [facility]
--- NOTE | 2017-07-17 13:33 | CP.PCM.PN ---
Subjective - Date & Time of Evaluation Date of Evaluation: 07/17/17 Time of Evaluation: 07:45 - Subjective Subjective: Patient seen and examined, reprots no major complaints. Denies fever, chills, cough, chest pain, sob. Objective - Vital Signs/Intake and Output Vital Signs (last 24 hours): Temp Pulse Resp BP Pulse Ox 97.4 F L 90 26 H 135/67 94 L 07/17/17 04:26 07/17/17 07:52 07/17/17 06:10 07/17/17 07:52 07/17/17 06:30 Intake and Output: 07/17/17 07/17/17 06:59 18:59 Intake Total 1000 100 Output Total 3350 Balance -2350 100 - Medications Medications: Current Medications Acetaminophen (Tylenol 325mg Tab) 650 mg PO Q4 PRN PRN Reason: Pain, Mild (1-3) Last Admin: 07/16/17 18:00 Dose: 650 mg Azithromycin (Zithromax) 500 mg PO DAILY [facility] PRN Reason: Protocol Stop: 07/23/17 10:01 Last Admin: 07/17/17 10:00 Dose: 500 mg Budesonide (Pulmicort Respules) 0.5 mg IH [id number] [facility] Last Admin: 07/17/17 08:05 Dose: Not Given Diphenhydramine HCl (Benadryl) 50 mg IVP HS PRN PRN Reason: Insomnia Last Admin: 07/16/17 21:51 Dose: 50 mg diltiaZEM IVPB 100mg in NS (Cardizem 100mg In Ns) 100 mls @ 10 mls/hr IV .Q10H PRN; Protocol; 10 MG/HR PRN Reason: TITRATE PER MD ORDER Last Admin: 07/17/17 07:50 Dose: 10 mg/hr, 10 mls/hr Cefazolin Sodium (Ancef 1gm In Ns) 1 gm in 100 mls @ 100 mls/hr IVPB Q8 [facility] PRN Reason: Protocol Last Admin: 07/17/17 05:28 Dose: 100 mls/hr Levalbuterol HCl (Xopenex) 0.63 mg IH [id number] [facility] Last Admin: 07/17/17 13:07 Dose: Not Given Levalbuterol HCl (Xopenex) 0.63 mg IH Q2 PRN PRN Reason: Shortness of Breath Last Admin: 07/12/17 18:50 Dose: 0.63 mg Methylprednisolone (Solu-Medrol) 30 mg IVP Q12 [facility] Last Admin: 07/17/17 10:00 Dose: 30 mg Metoprolol Tartrate (Lopressor) 50 mg PO BRKDIN [facility] Last Admin: 07/17/17 07:52 Dose: 50 mg Pantoprazole Sodium (Protonix Ec Tab) 20 mg PO 0600 [facility] Last Admin: 07/17/17 05:28 Dose: 20 mg Pregabalin (Lyrica) 25 mg PO Q12 [facility] Last Admin: 07/17/17 10:00 Dose: 25 mg - Labs Labs: 07/16/17 13:00 07/16/17 13:00 PT 13.0 Seconds (9.9-11.8) H 07/16/17 13:00 INR 1.20 (0.93-1.08) H 07/16/17 13:00 APTT 23.7 Seconds (23.7-30.8) 07/16/17 13:00 - Constitutional Appears: Well, Non-toxic, No Acute Distress - Head Exam Head Exam: NORMAL INSPECTION - Eye Exam Eye Exam: EOMI - ENT Exam ENT Exam: Mucous Membranes Moist - Neck Exam Neck Exam: Normal Inspection - Respiratory Exam Respiratory Exam: Clear to Ausculation Bilateral, NORMAL BREATHING PATTERN - Cardiovascular Exam Cardiovascular Exam: REGULAR RHYTHM, +S1, +S2 Additional comments: +pericardial drain - GI/Abdominal Exam GI & Abdominal Exam: Soft, Normal Bowel Sounds - Extremities Exam Extremities Exam: Normal Inspection Assessment and Plan - Assessment and Plan (Free Text) Assessment: 67 year old male with PMH of non-small cell lung cancer stage 4 S/P right pneumonectomy, HTN, obesity, with pericardial effusion s/p drain, and SVC stent - currently afebrile, HD stable, comfortable, HR controlled 80s, on Cardizem drip Afib Non Small Cell Lung Ca with mets SVC stent Pericardial effusion s/p drain Recommend: - supp o2 as needed - monitor HH - follow up caridology - AV parminder blocking agents - DVT ppx - GI ppx - palliative care follow up - transition to PO AV parminder blocking agents - transfer to telemetry
--- NOTE | 2017-07-17 13:36 | PN ---
DATE: 07/17/2017 SUBJECTIVE: The patient is in bed in no acute distress and was seen earlier this morning in 129, bed #6. Uneventful night. PHYSICAL EXAMINATION: VITAL SIGNS: Temperature is 97, blood pressure is 130/60, respiratory rate of 26, heart rate of 88. HEENT: Unremarkable. NECK: Supple. LUNGS: Decreased breath sounds. HEART: Normal S1, S2. ABDOMEN: Soft, nontender. LABORATORY DATA: Reveals the patient's white count of 17,900, hemoglobin of 12, platelets of 309. BUN of 23, creatinine of 0.6, procalcitonin of 0.08. Blood cultures are no growth. progress note from this morning is reviewed. Dr. Portillo's note is reviewed. 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 The patient still has a drainage tube, currently on day #5 of Zithromax. The patient with right-sided healthcare-associated pneumonia, non-small cell lung cancer, pneumonectomy, hypertension, obesity with a body mass index of 35, day #5 of antibiotics. The patient is on p.o. Zithromax, and blood cultures are negative and cytology for pathology is pending. The patient is also on Ancef, which is cefazolin. Overall prognosis is poor. We will follow closely with you. Osvaldo Lyons MD
--- NOTE | 2017-07-17 15:03 | CARD ---
APPROVED REPORT EXAM: Two-dimensional and M-mode echocardiogram with Doppler and color Doppler. INDICATION Pericardial Effusion <Conclusion> limited study only 2 D images were obtained, S/p Pericardiocentesis. No pericardial effusion noted.
--- NOTE | 2017-07-17 15:05 | PN ---
DATE: 07/17/2017 REASON FOR CONSULTATION: Followup atrial fibrillation ,flutter, large pericardial effusion, status post pericardiocentesis, 1.1 liter of fluid drained, having pigtail catheter in the pericardial space, drained 330 mL about 24 hours. SUBJECTIVE: The patient feels better, less short of breath. OBJECTIVE/PHYSICAL EXAMINATION: As follows: GENERAL: Lying in the bed flat, but not in distress. VITAL SIGNS: Heart rate of 90 and blood pressure of 135/60. HEENT: PERRLA. Extraocular muscles are intact. NECK: Supple. No carotid bruits or thyromegaly. CHEST: Clear to auscultation. HEART: S1 and S2, regular. ABDOMEN: Soft. EXTREMITIES: Clubbing and cyanosis negative. LABORATORY DATA: Blood workup as follows, WBC of 17.9, hemoglobin of 12.6, hematocrit of 40.6, and platelet count of 309. Chemistry shows sodium of 130, potassium of 3.9, chloride of 95, carbon dioxide of 36, anion gap of 12, BUN of 26, and creatinine of 0.6. 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 pigtail catheter drained 330 mL, 180 mL last 12 hours from 7:00 p.m to 7:00 a.m. and 7:00 a.m. to 7:00 p.m 150 mL, total 330 mL of fluid, the patient drained in the pericardial bag. RECOMMENDATIONS: We will leave for next 24 hours. Continue Cardizem 10 mL an hour to control the heart rate with EKG. The patient is an atrial flutter with 2:1 conduction. Continue beta-thelma, hold p.o. Cardizem, and continue IV Cardizem. Monitor next 24 hours of drainage. If :it started decrease, we will get echo tomorrow and possible removal of the pigtail catheter tomorrow. Overall, the patient's condition is critical, long-term prognosis is guarded. If the survival is more than 6 months or year, then consider pericardial window. I discussed with Dr. Ram. Thank you Dr. Ram for providing us the opportunity in taking care of Alona Hargrove. If the survival less than 6 months or short, consider palliative treatment. Chante Bullard MD
--- NOTE | 2017-07-17 17:36 | CARD ---
APPROVED REPORT EKG Measurement Heart [id number] CA 200P [id number] <Conclusion> A Flutter with 3;1 conduction.
[2017-07-18] MEDS: Levalbuterol 0.63 MG/3 ML Inhal Soln UD IH SCH ×4 (01:25→19:32)
[2017-07-18] MEDS: Pantoprazole 20 mg EC Tab PO SCH (06:44)
[2017-07-18] MEDS: ceFAZolin 1 gm in NS 1 GM/100 ML BAG IVPB SCH (06:44)
--- NOTE | 2017-07-18 07:39 | PN ---
SUBJECTIVE: The patient appears comfortable this morning. He is not short of breath at rest. PHYSICAL EXAMINATION: Vital Signs: Temperature is 97.7, pulse is 101, respirations 18-20, blood pressure 132/67. Oxygen saturation on nasal cannula is 96%. HEENT: Normocephalic, atraumatic. NECK: No JVD. There is less swelling of his face and right neck area. CARDIOVASCULAR: Positive S1, S2. No S3 gallop. LUNGS: Bronchial breath sounds-right lung. Very minimal/much less rhonchi-left lung. No wheezing. EXTREMITIES: No clubbing, cyanosis or edema. Calves are nontender to palpation. GASTROINTESTINAL: Abdomen is soft, nontender and nondistended. Bowel sounds are positive. SKIN: No acute rash. There is a pericardial drain in place. NEUROLOGIC: Limited at the present time. IMPRESSION: 1. Acute bronchitis. 2. Advanced chronic obstructive pulmonary disease. 3. 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 4. 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 5. Anemia. 6. Rapid atrial fibrillation/atrial flutter. 7. Pericardial effusion, status post drain. PLAN: The patient appears comfortable this morning. He is not short of breath at rest. He is coughing much less. He states that he is feeling much better overall. I did discuss the case with the night nurse at length. The night nurse stated that the patient had a very good night. The pericardial drainage is decreasing significantly. Pericardial fluid analysis is pending. On physical exam, he has significantly less bronchospasm. I will continue the current nebulizer treatments and low-dose intravenous steroids for now. Inputs by Cardiology and Infectious Disease are noted. Clinical status of the patient is significantly improved-compared to the initial presentation. However, again, the future status/prognosis for this patient remains very poor. All are aware. I will discuss the above with the attending physician. Kenny Vaca MD MTDD
[2017-07-18] MEDS: Budesonide 0.5 mg/2 ml Inhal Susp UD IH SCH ×2 (08:00→19:32)
[2017-07-18] MEDS: diltiaZEM IVPB 100mg in NS 100 ML IV PRN ×2 (08:06→18:07)
[2017-07-18 09:08] LABS: BASO # 0.02 K/mm3 (0.0-2.0); BASO % 0.1 % (0.0-3.0); GRAN # 20.51 (1.4-6.5); HEMATOCRIT 44.2 % (42.0-52.0); LYMPH # 0.8 (1.2-3.4); LYMPH % 3.7 % (22.0-35.0); MEAN CELL VOLUME 92.3 fl (80.0-105.0); MEAN CORPUSCULAR HEMOGLOBIN 29.2 pg (25.0-35.0); MEAN CORPUSCULAR HGB CONC 31.7 g/dl (31.0-37.0); MEAN PLATELET VOLUME 9.2 fl (7.0-11.0); MONO # 0.7 (0.1-0.6); MONO % 3.2 % (1.0-6.0); RED CELL DISTRIBUTION WIDTH 13.9 % (11.5-14.5); WHITE BLOOD COUNT 22.1 10^3/ul (4.5-11.0)
[2017-07-18 09:17] LABS: ALB/GLOB RATIO 1.2 (1.1-1.8); ALKALINE PHOSPHATASE 86 U/L (38-126); ALT/SGPT 100 U/L (7-56); AST/SGOT 39 U/L (17-59); BILIRUBIN,TOTAL 0.4 mg/dL (0.2-1.3); BLOOD UREA NITROGEN 24 mg/dL (7-21); CALCIUM 8.6 mg/dL (8.4-10.5); CARBON DIOXIDE 36 mmol/L (21-33); CHLORIDE 95 mmol/L (98-107); GFR AFRICAN-AMERICAN > 60; GLUCOSE,RANDOM 195 mg/dL (70-110); PHOSPHOROUS 2.9 mg/dL (2.5-4.5); SODIUM 136 mmol/L (132-148); TOTAL PROTEIN 6.3 g/dL (5.8-8.3)
[2017-07-18] MEDS: MethylPREDNISolone 40 mg Vial IVP SCH ×2 (10:46→22:06)
--- NOTE | 2017-07-18 11:04 | CP.PCM.PN ---
<Tutu Rondon - Last Filed: 07/18/17 17:24> Subjective - Date & Time of Evaluation Date of Evaluation: 07/18/17 Time of Evaluation: 10:59 - Subjective Subjective: Progress note for Dr. Ram's service Patient seen and examined at bedside this morning. No acute overnight events or new complaints reported. He has been frustrated that he is unable to leave his bed without assistance. Discussed risk of fall with patient. Pig-tail catheter s /p pericardiocentesis drained 120cc over the last 24hrs. Fluid tapering down. Discussed with cardiology this morning and drain will likely be removed tomorrow. Echocardiogram today to be reviewed. Explained to patient current plan. Denied chest pain, palpitations, SOB. Objective - Vital Signs/Intake and Output Vital Signs (last 24 hours): Temp Pulse Resp BP Pulse Ox 97.7 F 107 H 20 140/76 96 07/18/17 06:00 07/18/17 08:28 07/18/17 06:00 07/18/17 08:28 07/18/17 06:00 Intake and Output: 07/18/17 07/18/17 06:59 18:59 Intake Total 100 Balance 100 - Medications Medications: Current Medications Acetaminophen (Tylenol 325mg Tab) 650 mg PO Q4 PRN PRN Reason: Pain, Mild (1-3) Last Admin: 07/16/17 18:00 Dose: 650 mg Azithromycin (Zithromax) 500 mg PO DAILY MITALI PRN Reason: Protocol Stop: 07/23/17 10:01 Last Admin: 07/18/17 10:46 Dose: 500 mg Budesonide (Pulmicort Respules) 0.5 mg IH [id number] MITALI Last Admin: 07/18/17 08:00 Dose: Not Given Diphenhydramine HCl (Benadryl) 50 mg IVP HS PRN PRN Reason: Insomnia Last Admin: 07/16/17 21:51 Dose: 50 mg diltiaZEM IVPB 100mg in NS (Cardizem 100mg In Ns) 100 mls @ 10 mls/hr IV .Q10H PRN; Protocol; 10 MG/HR PRN Reason: TITRATE PER MD ORDER Last Admin: 07/18/17 08:06 Dose: 10 mg/hr, 10 mls/hr Levalbuterol HCl (Xopenex) 0.63 mg IH [id number] [facility] Last Admin: 07/18/17 08:00 Dose: Not Given Levalbuterol HCl (Xopenex) 0.63 mg IH Q2 PRN PRN Reason: Shortness of Breath Last Admin: 07/12/17 18:50 Dose: 0.63 mg Methylprednisolone (Solu-Medrol) 30 mg IVP Q12 [facility] Last Admin: 07/18/17 10:46 Dose: 30 mg Metoprolol Tartrate (Lopressor) 50 mg PO BRKDIN [facility] Last Admin: 07/18/17 08:28 Dose: 50 mg Pantoprazole Sodium (Protonix Ec Tab) 20 mg PO 0600 [facility] Last Admin: 07/18/17 06:44 Dose: 20 mg Pregabalin (Lyrica) 25 mg PO Q12 [facility] Last Admin: 07/18/17 10:46 Dose: 25 mg - Labs Labs: 07/18/17 09:00 07/18/17 09:00 PT 13.0 Seconds (9.9-11.8) H 07/16/17 13:00 INR 1.20 (0.93-1.08) H 07/16/17 13:00 APTT 23.7 Seconds (23.7-30.8) 07/16/17 13:00 - Constitutional Appears: No Acute Distress - Head Exam Head Exam: ATRAUMATIC, NORMAL INSPECTION, NORMOCEPHALIC - Eye Exam Eye Exam: EOMI Pupil Exam: PERRL - ENT Exam ENT Exam: Mucous Membranes Moist - Respiratory Exam Respiratory Exam: Clear to Ausculation Bilateral. absent: Rales, Rhonchi, Wheezes - Cardiovascular Exam Cardiovascular Exam: +S1, +S2. absent: Gallop, Rubs, Murmur - GI/Abdominal Exam GI & Abdominal Exam: Soft. absent: Distended, Firm, Guarding, Rigid, Tenderness , Rebound - Extremities Exam Extremities Exam: Normal Inspection. absent: Pedal Edema - Neurological Exam Neurological Exam: Alert, Awake, Oriented x3 - Psychiatric Exam Psychiatric exam: Normal Affect, Normal Mood - Skin Skin Exam: Dry, Intact, Normal Color, Warm Assessment and Plan - Assessment and Plan (Free Text) Plan: 67yo male with history of stage IV metastatic non-small cell lung carcinoma s/p resection and chemo/radiation, COPD, atrial flutter, hypertension and GERD admitted for progressive cough with associated syncope 1. Pericardial effusion -Patient is s/p pericardiocentesis; 1100cc fluid drained; fluid sent for further testing including PDL1 stain; likely malignancy related -Echocardiogram ordered post pericardiocentesis; pending read -Case discussed with cardiothoracic surgeon, Dr. Jin Prabhakar regarding potential transfer for pericardial window. Recommended to keep drain in place for the time being and assess for fluid reacculumation -Pig-tail catheter likely to be removed tomorrow should the fluid continue to taper down as it has been; echocardiogram to be reviewed -Pig-tail catheter drained 120cc over the last 24 hours from 1.1L drained on insertion. Previous day ~300cc of fluid was drained. -Cardiology consulted - Dr. Bullard 2. Stage IV non-small cell lung carcinoma -Patient is s/p resection and chemoradiation -Progressively worsening carcinoma of the right lung -Currently being treated with Keytruda given the extensiveness of his malignancy 3. Atrial flutter -Telemetry monitoring -Continue with cardizem drip and metoprolol 50mg PO BID as per cardiology recommendations 4. COPD -Continue with bronchodilators and steroid taper as per pulmonary recommendations 5. GERD -Continue protonix Patient seen and case discussed with attending, Dr. Ram <Elaine Ram P - Last Filed: 07/19/17 10:53> Objective - Vital Signs/Intake and Output Vital Signs (last 24 hours): Temp Pulse Resp BP Pulse Ox 98.8 F 91 H 20 138/71 96 07/19/17 06:00 07/19/17 08:49 07/19/17 06:00 07/19/17 08:49 07/19/17 06:00 Intake and Output: 07/19/17 07/19/17 06:59 18:59 Intake Total 640 Output Total 1950 Balance -1310 - Medications Medications: Current Medications Acetaminophen (Tylenol 325mg Tab) 650 mg PO Q4 PRN PRN Reason: Pain, Mild (1-3) Last Admin: 07/16/17 18:00 Dose: 650 mg Azithromycin (Zithromax) 500 mg PO DAILY MITALI PRN Reason: Protocol Stop: 07/23/17 10:01 Last Admin: 07/18/17 10:46 Dose: 500 mg Budesonide (Pulmicort Respules) 0.5 mg IH [id number] [facility] Last Admin: 07/19/17 07:48 Dose: Not Given Diphenhydramine HCl (Benadryl) 50 mg IVP HS PRN PRN Reason: Insomnia Last Admin: 07/16/17 21:51 Dose: 50 mg diltiaZEM IVPB 100mg in NS (Cardizem 100mg In Ns) 100 mls @ 10 mls/hr IV .Q10H PRN; Protocol; 10 MG/HR PRN Reason: TITRATE PER MD ORDER Last Admin: 07/19/17 04:17 Dose: 10 mg/hr, 10 mls/hr Levalbuterol HCl (Xopenex) 0.63 mg IH [id number] [facility] Last Admin: 07/19/17 07:48 Dose: Not Given Levalbuterol HCl (Xopenex) 0.63 mg IH Q2 PRN PRN Reason: Shortness of Breath Last Admin: 07/12/17 18:50 Dose: 0.63 mg Methylprednisolone (Solu-Medrol) 30 mg IVP Q12 [facility] Last Admin: 07/18/17 22:06 Dose: 30 mg Metoprolol Tartrate (Lopressor) 50 mg PO BRKDIN [facility] Last Admin: 07/19/17 08:49 Dose: 50 mg Pantoprazole Sodium (Protonix Ec Tab) 20 mg PO 0600 [facility] Last Admin: 07/19/17 06:05 Dose: 20 mg Pregabalin (Lyrica) 25 mg PO Q12 [facility] Last Admin: 07/18/17 22:06 Dose: 25 mg - Labs Labs: 07/18/17 09:00 07/18/17 09:00 PT 13.0 Seconds (9.9-11.8) H 07/16/17 13:00 INR 1.20 (0.93-1.08) H 07/16/17 13:00 APTT 23.7 Seconds (23.7-30.8) 07/16/17 13:00 Attending/Attestation - Attestation I have personally seen and examined this patient.: Yes I have fully participated in the care of the patient.: Yes I have reviewed all pertinent clinical information, including history, physical exam and plan: Yes
--- NOTE | 2017-07-18 11:15 | PN ---
DATE: 07/18/2017 SUBJECTIVE: The patient is in bed, in no acute distress. He is awake and alert, doing well. PHYSICAL EXAMINATION: VITAL SIGNS: Temperature is 97, blood pressure is 130/60, respiratory rate of 20, heart rate of 112. HEENT: Unremarkable. NECK: Supple. LUNGS: Decreased breath sounds. HEART: Normal S1 and S2. ABDOMEN: Soft and nontender. LABORATORY DATA: Reveals a white count of 17,900, hemoglobin of 12, platelets of 309. Chemistries reveals a BUN of 23, creatinine of 0.6, procalcitonin 0.08. Blood cultures are negative. Dr. Kenny Vaca's, progress note is reviewed. ASSESSMENT AND PLAN: This is a 67-year-old male with obesity, body mass index of 35 with recurrent lung cancer with metastasis, atrial fibrillation, rapid ventricular response. The lung cancer has metastasized to spleen, spine, pericardial effusion, status post pericardiocentesis with 1100 mL removed, has a drainage tube in there. Today is day number 6 of Zithromax. Blood cultures negative. We will discontinue the Ancef and Dr. Bullard's note is reviewed. Dr. Vaca's note is reviewed. Dr. Vladimir Millan's note is reviewed. Overall prognosis is quite poor. Osvaldo Lyons MD
--- NOTE | 2017-07-18 13:06 | CARD ---
APPROVED REPORT EKG Measurement Heart [id number] <Conclusion> Atrial flutter with variable AV block Nonspecific ST abnormality Abnormal ECG
--- NOTE | 2017-07-18 18:37 | CARD ---
APPROVED REPORT EXAM: LIMITED Two-dimensional and M-mode echocardiogram. INDICATION PERICARDIAL EFFUSION CHECK <Conclusion> Limited 2D Echo for F/u after Pericardocentesis, 48 hours after. No pericardial effusion noted.
--- NOTE | 2017-07-18 18:53 | PN ---
DATE: 07/18/2017 REASON FOR CONSULTATION: Followup. Atrial fibrillation flutter, 2:1 conduction, a large pericardial effusion that is status post pericardiocentesis of 1.1 L fluid during the stress, post 330 mL of fluid yesterday and the night before 120 mL. SUBJECTIVE: The patient denies any chest pain, wanted to go home, wanted to discontinue the pigtail catheter, otherwise feels okay, complaining of difficulty in mobilizing. OBJECTIVE: VITAL SIGNS: Temperature afebrile, heart rate 90, blood pressure 118/72. HEENT: PERRLA. Extraocular muscles are intact. NECK: Supple. No carotid bruits or thyromegaly. CHEST: Clear to auscultation. HEART: S1 and S2 regular. ABDOMEN: Soft. EXTREMITIES: Clubbing and cyanosis negative. LABORATORY DATA: Blood workup as follows: WBC 22.1, hemoglobin 14, hematocrit 42.4, platelet count 343. Chemistry shows sodium 130, potassium 4, chloride 95, carbon dioxide 36, anion gap of 9, BUN 26, and creatinine 0.6. IMPRESSION: A 67-year-old male with past medical history significant for lung cancer status post recurrence of lung cancer, large pericardial effusion status post pericardiocentesis 1.1 liter was drained last night. Yesterday, the patient had a 330 mL of drainage. Still, the patient has an indwelling pigtail catheter for drainage. 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 RECOMMENDATIONS: We will get an echo today to access the residual fluid. Continue IV Cardizem to control the heart rate. If the residual fluid keeps on decreasing, we will possibly pull the pigtail tomorrow. Discussed with the patient and I explained the patient's overall condition with the help of an forming machine upkeep mechanic who speaks Vietnamese. The patient ultimately agreed. Interim, continue Ancef till the indwelling pigtail catheter is there. Continue Cardizem IV. WBC is elevated because of prednisone. We will follow with you. Continue antibiotics. Thank you Dr. Ram for providing us the opportunity in taking care of the patient, Alona Hargrove. Chante Bullard MD
[2017-07-19] MEDS: Levalbuterol 0.63 MG/3 ML Inhal Soln UD IH SCH ×4 (01:16→20:00)
[2017-07-19] MEDS: diltiaZEM IVPB 100mg in NS 100 ML IV PRN ×2 (04:17→14:40)
[2017-07-19] MEDS: Pantoprazole 20 mg EC Tab PO SCH (06:05)
[2017-07-19] MEDS: Budesonide 0.5 mg/2 ml Inhal Susp UD IH SCH ×2 (07:48→20:00)
[2017-07-19] MEDS: MethylPREDNISolone 40 mg Vial IVP SCH ×2 (10:54→21:20)
--- NOTE | 2017-07-19 11:04 | PN ---
DATE: 07/19/2017 SUBJECTIVE: The patient is seen in bed, in no acute distress, nontoxic. No fevers or chills. PHYSICAL EXAMINATION VITAL SIGNS: Temperature is 98, blood pressure is 130/70, respiratory rate of 16. HEENT: Unremarkable. NECK: Supple. LUNGS: Decreased breath sounds. HEART: Normal S1 and S2. ABDOMEN: Soft and nontender. LABORATORY DATA: Reveals a white count of 22,000, hemoglobin of 14, platelets of 343. BUN of 24, creatinine of 0.6, procalcitonin 0.08. Microbiology reveals cultures are negative. Blood cultures review orders. MEDICATIONS: The patient is on p.o. Zithromax. The patient is on Solu-Medrol. ASSESSMENT AND PLAN: This is a 67-year-old male with obesity, body mass index of 35 with recurrent lung cancer with metastasis, atrial fibrillation with rapid ventricular response. The lung cancer has metastasized to spleen, spine, pericardial effusion, status post pericardiocentesis,a 1100 mL was removed and drain tube is present. Today is day number 7 of azithromycin and Zithromax. We will discontinue that after today's dose. Dr. Bullard's note is reviewed. Dr. Tutu Rondon's note is reviewed. We will follow with you. Osvaldo Lyons MD
--- NOTE | 2017-07-19 12:53 | PN ---
PULMONARY PROGRESS NOTE DATE: 07/19/2017 LOCATION: Room 264, bed 1. SUBJECTIVE: The patient remains somewhat dyspneic at rest. He still states he does not feel well. He is definitely uncomfortable as would be expected with his vast pulmonary history. PHYSICAL EXAMINATION: GENERAL: On physical exam, he is resting comfortably. VITAL SIGNS: His heart rate is 100, he is afebrile, respiratory rate 22, blood pressure 130/60, O2 sat is 96% with supplemental oxygen via nasal cannula. HEENT: Normocephalic and atraumatic. NECK: Supple without changes. CARDIOVASCULAR: Regular rhythm, S1 and S2 without murmur, gallop or rub. LUNGS: Decreased breath sounds throughout. The right lung has decreased rhonchi throughout; on the left, no rhonchi. There is wheezing noted. No murmur or gallop. ABDOMEN: Soft, bowel sounds normoactive without mass, guarding, rebound or organomegaly. EXTREMITIES: Reveal no clubbing, cyanosis, or edema. There is protuberance negative Homans sign. SKIN: No rash or excoriation. NEUROLOGIC: No focal findings. Otherwise, within normal limits. CLINICAL IMPRESSION: 1. Bronchitis. 2. Chronic obstructive pulmonary disease with exacerbation. 3. Small cell carcinoma of the right lung. 4. Pleural effusion. 5. Superior vena cava syndrome. 6. Anemia. 7. Rapid atrial fibrillation. 8. Atrial flutter. 9. Pericardial effusion. PLAN: The patient needs continuous support. Decision is need to be made what kind of outpatient treatment the patient requires. I do not see a DNR or DNI statement on the chart with severe COPD and cancer. I will need to defer to the people who know him best. I have a difficult time conversing with him due to language barrier, but a long talk regarding long-term status needs to be done with the patient and his family as well as decision made for appropriate treatment in the near future and in the more distant future. We will be ready to help out whenever possible. Thank you for the opportunity to help out at this time. We will be ready to do whatever is necessary to help this skip gentleman. Jw Mccabe MD RUBIA
--- NOTE | 2017-07-19 16:53 | PN ---
DATE: 07/19/2017 REASON FOR CONSULTATION AND FOLLOWUP: Atrial fibrillation, 2:1 conduction, large pericardial effusion with pericardiocentesis, is still draining pericardial fluid. SUBJECTIVE: The patient denies any chest pain, shortness of breath, or any palpitations. Wanted to get rid of this pericardial catheter. PHYSICAL EXAMINATION GENERAL: Not in apparent distress. VITAL SIGNS: As follows: Temperature afebrile, heart rate 91, and blood pressure 132/71. HEENT: PERRLA. Extraocular muscles intact. NECK: Supple. No carotid bruit or thyromegaly. CHEST: Clear to auscultation. HEART: S1 and S2 regular. ABDOMEN: Soft. EXTREMITIES: Clubbing and cyanosis negative. LABORATORY DATA: Blood workup as follows: WBC 22.1, hemoglobin 14, hematocrit 44.2 and platelet count 343. Chemistry shows sodium 130, potassium 4, chloride , carbon dioxide 36, anion gap of 9, BUN 26, and creatinine 0.6. IMPRESSION: A 67-year-old male with past medical history significant for recurrent lung cancer with metastasis, has a large pericardial effusion status post pericardiocentesis, 1.1 liter was drained on the day and after that 330 mL, yesterday was 150 mL. This morning, plan to discontinue the catheter, drained 30 mL since morning, so postponed the removal of pigtail catheter. The patient had yesterday echo done; no significant pericardial effusion noted status post right subclavian angioplasty. RECOMMENDATIONS: We will remove the pericardial catheter for the next 24 hours. Most likely, we will remove tomorrow if the drainage is less than 30 to 40 mL. Continue for now Cardizem. Once the catheter is drained, after that we will try to switch over to p.o. Cardizem. Continue p.o. beta thelma. Discussed with daughter, Lucretia on the phone about the patient's condition and the plan for removal of catheter. The patient is not a candidate for anticoagulation at this time because of large pericardial effusion that is draining tamponade. We will follow with you for now. Once the pericardial fluid becomes stable, consider anticoagulation. Overall, the patient's condition is critical. [facility] prognosis is guarded. Discussed with pulmonary doctor, Dr. Vaca day before yesterday. Thank you Dr. Ram for providing us the opportunity in taking care of the patient, Alona Hargrove. Chante Bullard MD
[2017-07-20] MEDS: diltiaZEM IVPB 100mg in NS 100 ML IV PRN ×2 (00:56→11:38)
[2017-07-20] MEDS: Levalbuterol 0.63 MG/3 ML Inhal Soln UD IH SCH ×4 (02:00→22:02)
[2017-07-20] MEDS: Pantoprazole 20 mg EC Tab PO SCH (06:07)
[2017-07-20] MEDS: Budesonide 0.5 mg/2 ml Inhal Susp UD IH SCH (08:00)
[2017-07-20] MEDS: MethylPREDNISolone 40 mg Vial IVP SCH ×2 (09:34→22:53)
--- NOTE | 2017-07-20 13:56 | PN ---
DATE: 07/20/2017 SUBJECTIVE: The patient is in bed in no acute distress, nontoxic. OBJECTIVE: GENERAL: Is awake and alert. Seen in 261, bed 1. VITAL SIGNS: Temperature is 97, blood pressure is 130/80, respiratory rate of 16. HEENT: Unremarkable. NECK: Supple. LUNGS: Have decreased breath sounds. HEART: Normal S1, S2. ABDOMEN: Soft, nontender. LABORATORY EXAMINATION: Reveals a WBC count of 22,000, hemoglobin of 14, platelets of 343, BUN of 24, creatinine of 0.6, procalcitonin 0.08. Microbiology: Blood cultures are negative. Naris MRSA is not detected. Review of orders reveals the patient to be on . ASSESSMENT AND PLAN: This is a 67-year-old male with obesity, body mass index of 35, recurrent lung cancer with metastases, atrial fibrillation, rapid ventricular response, lung cancer is metastasized to the spleen and spine. The patient had pericardial effusion, status post pericardiocentesis, 1100 mL was removed and a drain tube is present and was given 7 days of Zithromax. We will discontinue Zithromax. No further need for any antibiotics. All cultures are negative. The cytology of the pericardial fluid is still pending to rule out a malignancy and unfortunately, no culture on the pericardial fluid is available. We will follow with you. The patient is at risk for developing nosocomial infection. Osvaldo Lyons MD
--- NOTE | 2017-07-20 14:50 | PN ---
DATE: 07/19/2017 PULMONARY PROGRESS NOTE SUBJECTIVE: The patient is resting comfortably. Today, he is better than yesterday, although he remains tachypneic and still appears to be uncomfortable when aroused. He states that he is feeling very poorly, but there is clearly improvement noted today from that of yesterday. PHYSICAL EXAMINATION: GENERAL: He is resting comfortably. VITAL SIGNS: Stable. Heart rate is 90, respiratory rate is 18, blood pressure is 130/60, and oxygen saturation is 96%. HEENT: Normocephalic and atraumatic. NECK: Supple without JVD. CARDIOVASCULAR: Regular rhythm. S1 and S2 without murmur, gallop, or rub. CHEST: Good air movement. Decreased breath sounds at the right. Decreased breath sounds at the right base. Minimal wheezing. No murmur. HEART: Regular rhythm without murmur. ABDOMEN: Soft. Positive bowel sounds. Without mass, guarding or rebound. EXTREMITIES: Reveal no clubbing, cyanosis or edema. Negative Homans' sign. SKIN: No rash or excoriation. NEUROLOGIC: No focal findings. CLINICAL IMPRESSION: 1. Status post acute bronchitis, doing better. 2. The patient has small cell carcinoma of the right lung. 3. 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 4. Superior vena cava syndrome. 4. Anemia. 5. Rapid atrial fibrillation. 6. Atrial flutter. 7. Pericardial effusion. There is no overall deterioration in this patient's status whose prognosis is grim. PLAN: Continue vigorous supportive care. His code status needs to be addressed appropriately on the chart and there are no members of the family here at the present time. We will discuss with the attending as to what ever papers need to be signed that present on the chart. At this time continue vigorous supportive care, but the overall outcome is suspected to remain poor. Thank you for the opportunity to take care for this gentleman. Jw Mccabe MD [facility]
[2017-07-20 18:08] VITALS: RESP 20
--- NOTE | 2017-07-20 19:33 | PN ---
DATE: 07/20/2017 REASON FOR CONSULTATION: Followup atrial fibrillation, 2:1 conduction, large pericardial effusion status post pericardiocentesis, status post removal of the pigtail catheter this morning. SUBJECTIVE: The patient denies any chest pain, shortness of breath, or any palpitation. OBJECTIVE: GENERAL: Not in apparent distress. VITAL SIGNS: As follows: Temperature afebrile, heart rate 91, blood pressure 130/65. HEENT: PERRLA. Extraocular muscles are intact. NECK: Supple. No carotid bruits. No thyromegaly. CHEST: Clear to auscultation. HEART: S1 and S2 regular. ABDOMEN: Soft. EXTREMITIES: Clubbing and cyanosis negative. LABORATORY DATA: Blood workup: WBC 22.1, hemoglobin 14, hematocrit 44.2, platelet count 343. Chemistry shows sodium of 133, potassium 4, chloride 95, carbon dioxide 36, anion gap of 9, BUN 24, and creatinine 0.9. IMPRESSION: Atrial flutter, large pericardial effusion status post pericardiocentesis, status post removal this morning of pigtail catheter. On aspiration, no fluid was aspirated, yesterday was 30 mL. So pigtail catheter was removed, pressure applied. The patient tolerated the procedure well. Status post superior vena cava syndrome, status post right subclavian angioplasty. RECOMMENDATION: Repeat echo in the morning to see if any residual or collection of pericardial effusion. Change Cardizem to p.o. Not a candidate at this time for anticoagulation because of large pericardial effusion, but if no further, may consider later on. We will change Cardizem to p.o., ambulate, will bedrest for 15 minutes, after that the patient can be ambulated. Discussed with the nurse taking care. We will discontinue Cardizem at 4 p.m. one hour after first dose of p.o. Cardizem. We will discontinue Ancef after a dose because we pulled out the pigtail catheter, was given empirically for pigtail catheter. We will repeat tomorrow his echo. Chante Bullard MD
--- NOTE | 2017-07-20 22:21 | CP.PCM.PN ---
Subjective - Date & Time of Evaluation Date of Evaluation: 07/19/17 Time of Evaluation: 17:00 - Subjective Subjective: No acute events. Patient on cardizem gtt and still has pigtail in place due to persistent output. ROS: 12 ROS negative Pain: denies Objective - Vital Signs/Intake and Output Vital Signs (last 24 hours): Temp Pulse Resp BP Pulse Ox 98.2 F 78 20 124/72 96 07/20/17 18:00 07/20/17 19:04 07/20/17 18:00 07/20/17 19:04 07/20/17 05:59 Intake and Output: 07/20/17 07/21/17 18:59 06:59 Intake Total 640 Output Total 1000 Balance -360 - Medications Medications: Current Medications Acetaminophen (Tylenol 325mg Tab) 650 mg PO Q4 PRN PRN Reason: Pain, Mild (1-3) Last Admin: 07/19/17 13:21 Dose: 650 mg Budesonide (Pulmicort Respules) 0.5 mg [facility] [id number] [facility] Last Admin: 07/20/17 08:00 Dose: Not Given Diltiazem HCl (Cardizem) 60 mg PO TID [facility] Last Admin: 07/20/17 19:04 Dose: 60 mg Diphenhydramine HCl (Benadryl) 50 mg IVP HS PRN PRN Reason: Insomnia Last Admin: 07/16/17 21:51 Dose: 50 mg Levalbuterol HCl (Xopenex) 0.63 mg [facility] [id number] [facility] Last Admin: 07/20/17 22:02 Dose: Not Given Levalbuterol HCl (Xopenex) 0.63 mg [facility] Q2 PRN PRN Reason: Shortness of Breath Last Admin: 07/12/17 18:50 Dose: 0.63 mg Methylprednisolone (Solu-Medrol) 30 mg IVP Q12 [facility] Last Admin: 07/20/17 09:34 Dose: 30 mg Metoprolol Tartrate (Lopressor) 50 mg PO BRKDIN [facility] Last Admin: 07/20/17 18:20 Dose: 50 mg Pantoprazole Sodium (Protonix Ec Tab) 20 mg PO 0600 [facility] Last Admin: 07/20/17 06:07 Dose: 20 mg Pregabalin (Lyrica) 25 mg PO Q12 [facility] Last Admin: 07/20/17 09:32 Dose: 25 mg - Labs Labs: 07/18/17 09:00 07/18/17 09:00 PT 13.0 Seconds (9.9-11.8) H 07/16/17 13:00 INR 1.20 (0.93-1.08) H 07/16/17 13:00 APTT 23.7 Seconds (23.7-30.8) 07/16/17 13:00 - Constitutional Appears: Well - Respiratory Exam Respiratory Exam: Clear to Ausculation Bilateral, NORMAL BREATHING PATTERN - Cardiovascular Exam Cardiovascular Exam: Irregular Rhythm, +S1, +S2. absent: Tachycardia, Murmur - GI/Abdominal Exam GI & Abdominal Exam: Soft, Normal Bowel Sounds. absent: Tenderness - Extremities Exam Extremities Exam: Calf Tenderness Assessment and Plan - Assessment and Plan (Free Text) Assessment: 67yo male with history of stage IV metastatic non-small cell lung carcinoma s/p resection and chemo/radiation, COPD, atrial flutter, hypertension and GERD admitted for progressive cough with associated syncope 1. Pericardial effusion -Patient is s/p pericardiocentesis; 1100cc fluid drained; fluid sent for further testing including PDL1 stain; likely malignancy related -Echocardiogram ordered post pericardiocentesis; pending read -Case discussed with cardiothoracic surgeon, Dr. Jin Prabhkaar regarding potential transfer for pericardial window. Recommended to keep drain in place for the time being and assess for fluid reacculumation -Pig-tail catheter likely to be removed tomorrow should the fluid continue to taper down as it has been; echocardiogram to be reviewed -Pig-tail catheter continues to have output; will leave in place per cardio recs -Cardiology consulted - Dr. Bullard 2. Stage IV non-small cell lung carcinoma -Patient is s/p resection and chemoradiation -Progressively worsening carcinoma of the right lung -Currently being treated with Keytruda given the extensiveness of his malignancy 3. Atrial flutter -Telemetry monitoring -Continue with cardizem drip and metoprolol 50mg PO BID as per cardiology recommendations 4. COPD -Continue with bronchodilators and steroid taper as per pulmonary recommendations 5. GERD -Continue protonix
--- NOTE | 2017-07-20 22:27 | CP.PCM.PN ---
Subjective - Date & Time of Evaluation Date of Evaluation: 07/20/17 Time of Evaluation: 18:00 - Subjective Subjective: No acute events. Cardizem gtt stopped by cardio switched to oral regimen. Pigtail catheter removed b/c of decrease output ROS: 12 ROs negative Pain :denies Objective - Vital Signs/Intake and Output Vital Signs (last 24 hours): Temp Pulse Resp BP Pulse Ox 98.2 F 78 20 124/72 96 07/20/17 18:00 07/20/17 19:04 07/20/17 18:00 07/20/17 19:04 07/20/17 05:59 Intake and Output: 07/20/17 07/21/17 18:59 06:59 Intake Total 640 Output Total 1000 Balance -360 - Medications Medications: Current Medications Acetaminophen (Tylenol 325mg Tab) 650 mg PO Q4 PRN PRN Reason: Pain, Mild (1-3) Last Admin: 07/19/17 13:21 Dose: 650 mg Budesonide (Pulmicort Respules) 0.5 mg IH [id number] [facility] Last Admin: 07/20/17 08:00 Dose: Not Given Diltiazem HCl (Cardizem) 60 mg PO TID [facility] Last Admin: 07/20/17 19:04 Dose: 60 mg Diphenhydramine HCl (Benadryl) 50 mg IVP HS PRN PRN Reason: Insomnia Last Admin: 07/16/17 21:51 Dose: 50 mg Levalbuterol HCl (Xopenex) 0.63 mg IH [id number] [facility] Last Admin: 07/20/17 22:02 Dose: Not Given Levalbuterol HCl (Xopenex) 0.63 mg [facility] Q2 PRN PRN Reason: Shortness of Breath Last Admin: 07/12/17 18:50 Dose: 0.63 mg Methylprednisolone (Solu-Medrol) 30 mg IVP Q12 [facility] Last Admin: 07/20/17 09:34 Dose: 30 mg Metoprolol Tartrate (Lopressor) 50 mg PO BRKDIN [facility] Last Admin: 07/20/17 18:20 Dose: 50 mg Pantoprazole Sodium (Protonix Ec Tab) 20 mg PO 0600 [facility] Last Admin: 07/20/17 06:07 Dose: 20 mg Pregabalin (Lyrica) 25 mg PO Q12 [facility] Last Admin: 07/20/17 09:32 Dose: 25 mg - Labs Labs: 07/18/17 09:00 07/18/17 09:00 PT 13.0 Seconds (9.9-11.8) H 07/16/17 13:00 INR 1.20 (0.93-1.08) H 07/16/17 13:00 APTT 23.7 Seconds (23.7-30.8) 07/16/17 13:00 - Constitutional Appears: Well - Cardiovascular Exam Cardiovascular Exam: REGULAR RHYTHM, +S1, +S2. absent: Murmur - GI/Abdominal Exam GI & Abdominal Exam: Soft, Normal Bowel Sounds. absent: Tenderness - Extremities Exam Extremities Exam: Full ROM, Normal Capillary Refill, Normal Inspection. absent : Joint Swelling, Pedal Edema Assessment and Plan - Assessment and Plan (Free Text) Assessment: Mr. Hargrove nehemiah 67 y/o bruce with stage IV NSCLC s/p resection and chemo radiation , COPD, atrial flutter, HTN, GERD admitted with syncope in setting of pericardial effusion s/p pigtail placement for drain. Pigtail removed today by cardiology b/c of reduced output and patient being bridged to PO cardizem regimen from gtt. No need at present for cardiac window
[2017-07-21] MEDS: Pantoprazole 20 mg EC Tab PO SCH (05:59)
[2017-07-21 06:14] VITALS: O2SAT 96
--- NOTE | 2017-07-21 07:11 | PN ---
DATE: 07/21/2017 SUBJECTIVE: The patient appears comfortable this morning. He is not short of breath at rest. PHYSICAL EXAMINATION: VITAL SIGNS: Temperature is 98.3, pulse 61, respirations 18, blood pressure 155/89. Oxygen saturation on room air is between 96-97%. HEENT: Normocephalic, atraumatic. No JVD. There is a continued decrease in the swelling of his face and right neck area. CARDIOVASCULAR: Positive S1 and S2. No S3 gallop. LUNGS: Bronchial breath sounds - right lung. Left lung - clear this morning. EXTREMITIES: No clubbing, cyanosis, or edema. Calves are nontender to palpation. GI: Abdomen is soft, nontender, and nondistended. Bowel sounds are positive. SKIN: No acute rash. The pericardial drain as been removed. NEUROLOGIC: Exam limited at the present time. IMPRESSION: 1. Acute bronchitis. 2. Advanced chronic obstructive pulmonary disease. 3. 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 4. 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 5. Anemia. 6. Rapid atrial fibrillation/atrial flutter. 7. Pericardial effusion, status post drain. PLAN: The patient appears comfortable this morning. He is not short of breath at rest. He is coughing much less. The patient does state to feeling much,much better overall. I did discuss the case with the night nurse at length. The night nurse stated that the patient had a very good night. The pericardial drain has been discontinued. On physical exam, his bronchospasm continues to resolve. In addition, the alveolar arterial gradient also continues to resolve. Oxygen saturation on room air is now between 96-97%. I will continue with the current nebulizer treatments and decrease the intravenous steroids this morning. We are still awaiting the pericardial fluid analysis. Clinical status of the patient is significantly improved - compared to the initial presentation. However, again, the future status/prognosis for this patient does remain very poor. All are aware. I will discuss the above with the attending physician. Kenny Vaca MD [facility]
[2017-07-21] MEDS: Budesonide 0.5 mg/2 ml Inhal Susp UD IH SCH (07:50)
[2017-07-21] MEDS: Levalbuterol 0.63 MG/3 ML Inhal Soln UD IH SCH ×2 (07:50→13:04)
[2017-07-21] MEDS ORDERED: MethylPREDNISolone 40 mg Vial IVP SCH (10:00)
[2017-07-21 12:13] VITALS: TEMP 97.2
--- NOTE | 2017-07-21 15:24 | PN ---
DATE: 07/21/2017 REASON FOR CONSULTATION AND FOLLOWUP: Atrial fibrillation, 2:1 conduction, atrial fibrillation/flutter, large pericardial effusion status post pericardiocentesis, status post drainage of the pigtail catheter, and lung CA. SUBJECTIVE: The patient denies any chest pain, shortness of breath, or any palpitation. OBJECTIVE: GENERAL: Feeling better. VITAL SIGNS: As follows: Temperature afebrile, heart rate 91, and blood pressure 139/61. HEENT: PERRLA. Extraocular muscles are intact. NECK: Supple. No carotid bruits. No thyromegaly. CHEST: Clear to auscultation. HEART: S1 and S2 regular. ABDOMEN: Soft. EXTREMITIES: Clubbing and cyanosis negative. LABORATORY DATA: Blood workup as follows; WBC 22.1, hemoglobin 14, hematocrit 44.2, and platelet count 343. Chemistry shows sodium of 133, potassium 4, chloride 95, carbon dioxide 36, anion gap of 9, BUN 24, and creatinine 0.6, total protein 6.3, albumin 3.4, and albumin-globin ratio 1.2. IMPRESSION: Status post large pericardial effusion, status post pericardiocentesis 1100 mL of pericardial fluid was drained and then subsequently the patient drained 300 mL twice for 2 subsequent days. Yesterday a repeat echocardiogram was done and pigtail catheter was removed, lung carcinoma with metastasis, atrial fibrillation/flutter, rate is stable, superior vena cava syndrome, status post right subclavian vein angioplasty. RECOMMENDATION: Followup echo this morning to see if there is residual pericardial effusion, ambulate, continue Cardizem 60 mg 3 times a day, metoprolol 50 mg twice a day, and we will follow with you. We will change Cardizem to Cardizem CD from tomorrow. He is not a candidate to start anticoagulation because of high risk converting hemorrhagic pericarditis and pericardial effusion. We will discuss with you. Thank you Dr. Ram for providing us the opportunity in taking care of the patient, Alona Hargrove. Further recommendation after the echo. Chante Bullard MD
--- NOTE | 2017-07-21 17:04 | CARD ---
APPROVED REPORT EXAM: LIMITED Two-dimensional and M-mode echocardiogram. INDICATION PERICARDIAL EFFUSION CHECK <Conclusion> Limited Study S/p Pericardiocentesis and S/p removal of Pig tail catheter 24 hours post removal of catheter to assess pericardila fluid collection. No pericrdial effusion noted. preserved LV Fx. EF-55-60%
[2017-07-21 18:05] VITALS: BP 142/80; PULSE 55
[2017-07-22] MEDS ORDERED: diltiaZEM 180 mg/24 Hours CD Cap PO SCH (10:00)
== END 2017-07-21 19:14 | disposition home or self-care (01) | DRG 253 ==
LOC: ED 09:51 → ERH 11:26 → 2RSO 13:15 → CCU 07-16 10:46 → 2RNO 07-17 22:35
PROVIDERS: ADMIT Family Medicine; ATTEND Family Medicine
PROC: 0JPT3WZ Removal of Totally Implantable Vascular Access Device from Trunk Subcutaneous Tissue and Fascia, Percutaneous Approach (ICD-10-PCS; 2017-07-11)
PROC: 3E0F7GC Introduction of Other Therapeutic Substance into Respiratory Tract, Via Natural or Artificial Opening (ICD-10-PCS; 2017-07-11)
PROC: 05753ZZ Dilation of Right Subclavian Vein, Percutaneous Approach (ICD-10-PCS; principal; 2017-07-16)
PROC: 0W9D30Z Drainage of Pericardial Cavity with Drainage Device, Percutaneous Approach (ICD-10-PCS; 2017-07-16)
PROC: B518YZZ Fluoroscopy of Superior Vena Cava using Other Contrast (ICD-10-PCS; 2017-07-16)
PROC: B51MYZZ Fluoroscopy of Right Upper Extremity Veins using Other Contrast (ICD-10-PCS; 2017-07-16)
DX: I31.3 Pericardial effusion (noninflammatory) (principal); C34.91 Malignant neoplasm of unspecified part of right bronchus or lung; J90 Pleural effusion, not elsewhere classified; C79.51 Secondary malignant neoplasm of bone; C79.89 Secondary malignant neoplasm of other specified sites; I48.92 Unspecified atrial flutter; I48.91 Unspecified atrial fibrillation; I87.1 Compression of vein; J98.11 Atelectasis; J44.1 Chronic obstructive pulmonary disease with (acute) exacerbation; F17.210 Nicotine dependence, cigarettes, uncomplicated; J20.9 Acute bronchitis, unspecified; D64.9 Anemia, unspecified; I10 Essential (primary) hypertension; R62.7 Adult failure to thrive; K21.9 Gastro-esophageal reflux disease without esophagitis; R00.0 Tachycardia, unspecified; F51.02 Adjustment insomnia; Z87.01 Personal history of pneumonia (recurrent); Z51.5 Encounter for palliative care; R29.6 Repeated falls; Z91.19 Patient's noncompliance with other medical treatment and regimen; E66.9 Obesity, unspecified; Z68.35 Body mass index [BMI] 35.0-35.9, adult; Z92.3 Personal history of irradiation; Z91.81 History of falling; Z91.14 Patient's other noncompliance with medication regimen; Z90.2 Acquired absence of lung [part of]